=== PATIENT | male | born 1965 | race African-American/Black ===

== ENCOUNTER 2018-07-23 11:10 | Inpatient (IN) | payer MEDICAID, OTHER ==
[~2018-07-23] VITALS: Ht 180.3 cm; Wt 124.3 kg
[2018-07-23] MEDS ORDERED: IPRATROPIUM BROM 0.5 MG/2.5ML INH SOL NEB ONE (11:45)
[2018-07-23] MEDS ORDERED: ALBUTEROL SULF 2.5 MG/0.5ML(0.5%) NEB SOLN NEB ONE (11:45)
[2018-07-23] MEDS ORDERED: ACETAMINOPHEN 325 MG TAB PO ONE (12:00)
[2018-07-23] MEDS ORDERED: AZITHROMYCIN 500MG/ 250ML 250 ML IV ONE (12:15)
[2018-07-23] MEDS ORDERED: cefTRIAXone 1GM/50ML D5W 50 ML IV ONE (12:15)
[2018-07-23 12:28] LABS: Lactic Acid w/Reflex 2.2 mmol/L (0.4-2.0)
[2018-07-23 12:34] LABS: Hematocrit 35.3 % (41.0-53.0); Hemoglobin 12.3 g/dL (13.5-17.5); Mean Corpuscular Hemoglobin 30.7 pg (28.0-32.0); Mean Corpuscular Hgb Conc. 34.9 g/dL (32.0-36.0); Mean Corpuscular Volume 87.9 fL (80.0-100.0); Platelet Count (auto) 149 10^3/uL (140-450); Red Blood Cells 4.02 10^6/uL (4.5-5.90); Red Cell Distribution Width 18.2 % (11.8-14.3)
[2018-07-23] MEDS ORDERED: SODIUM CHLORIDE 0.9% 3,250 ML IV ONE (12:45)
[2018-07-23 13:24] LABS: White Blood Cell 1.5 10^3/uL (4.4-10.8)
[2018-07-23 13:25] LABS: Basophils % (manual) 0 (0.0-2.0); Blast Cells 0; Eosinophils % (manual) 0 (0-7); Metamyelocytes % 0; Myelocytes % 0; Promyelocytes % 0; Reactive Lymphocytes 0
[2018-07-23 13:49] LABS: Band Neutrophils % (manual) 2; Lymphocytes % (manual) 58 (10.0-50.0); Monocytes % (manual) 12 (0-12)
[2018-07-23 14:06] LABS: Alkaline Phosphatase 89 U/L (45-117); Anion Gap 13 (5-15); BUN/Creatinine Ratio 12.1; Blood Urea Nitrogen 36 mg/dL (7-18); Carbon Dioxide 23 mmol/L (21-32); Chloride 95 mmol/L (98-107); GFR African American 28 mL/min; GFR Non-African American 23 mL/min; Glucose 99 mg/dL (74-106); Potassium 3.3 mmol/L (3.5-5.1); Sodium 131 mmol/L (136-145)
[2018-07-23 14:07] LABS: Alanine Aminotransferase 158 U/L (16-61); Albumin 2.6 g/dL (3.4-5.0); Aspartate Aminotransferase 326 U/L (15-37); Bilirubin, Total 2.1 mg/dL (0.2-1.0); Calcium 8.2 mg/dL (8.5-10.1); Magnesium 2.5 mg/dL (1.6-2.6); Total Protein 8.5 g/dL (6.4-8.2)
[2018-07-23] MEDS ORDERED: POTASSIUM EFFERVESENT TAB 25 MEQ PO ONE ×2 (14:30→14:45)
[2018-07-23] MEDS ORDERED: ENOXAPARIN SOD 120 MG/0.8 ML SYRINGE SC ONE (14:30)
[2018-07-23] MEDS ORDERED: ALBUTEROL SULF 2.5 MG/0.5ML(0.5%) NEB SOLN NEB PRN (14:45)
[2018-07-23] MEDS ORDERED: VANCOMYCIN 1GM/250ML 250 ML IV ONE (14:45)
[2018-07-23] MEDS ORDERED: PIPERACILLIN-TAZOB 3.375GM 100 ML IV ONE (14:45)
[2018-07-23] MEDS ORDERED: VANCOMYCIN PER PHARMACY 0 MG IV SCH (14:45)
[2018-07-23] MEDS ORDERED: MORPHINE SULFATE 4 MG/ML SYR/VIAL IV PRN ×2 (14:45)
[2018-07-23] MEDS ORDERED: NITROGLYCERIN 0.4 MG SL TAB SL PRN (14:45)
[2018-07-23] MEDS ORDERED: MORPHINE SULF INJ 2 MG/ML SYRINGE 1ML IV PRN (14:45)
[2018-07-23] MEDS ORDERED: LACTULOSE 20Gm/30ML SOLN PO PRN (14:45)
[2018-07-23] MEDS: SODIUM CHLORIDE 0.9% 1,000 ML IV SCH ×2 (15:00→20:00)
[2018-07-23] MEDS ORDERED: CLINDAMYCIN 600MG IV 50 ML IV ONE (15:15)
[2018-07-23 15:25] VITALS: BP 101/59
[2018-07-23 15:40] LABS: Urine WBC None Seen /hpf (0 - 3)
[2018-07-23 16:06] LABS: Alcohol, Urine < 3.0 mg/dL (0-5); Amphetamine Screen, Urine NEGATIVE (NEGATIVE); Barbiturate Scree,Urine NEGATIVE (NEGATIVE); Benzodiazephine Screen, Urine NEGATIVE (NEGATIVE); Cannabinoid Screen, Urine NEGATIVE (NEGATIVE); Cocaine Screen, Urine NEGATIVE (NEGATIVE); Opiate Scree,Urine NEGATIVE (NEGATIVE); Phencyclidine Screen, Urine NEGATIVE (NEGATIVE)
[2018-07-23 16:10] VITALS: BP 167/99
--- NOTE | 2018-07-23 16:15 | NUR ---
Patient in room 266 from ER. Patient on the monitor. IV left AC 18G saline locked, patent, clean, dry, and intact. Patient on 2L NC. Last to gravity. Patient A&Ox4. Bed locked and in the lowest position, side rails up x2, call light with in reach. Patient on Reverse isolation. Patient instructed on POC. Will continue to monitor.
[2018-07-23 16:27] LABS: Protein, Urine 207.8 mg/dL (0.0-11.9)
[2018-07-23] MEDS ORDERED: LEVOFLOXACIN 500MG 100 ML IV ONE (16:30)
[2018-07-23 16:48] LABS: Urine Bacteria NONE SEEN /hpf (None Seen); Urine Blood 2+ /uL (Negative)
--- NOTE | 2018-07-23 17:00 | NUR ---
Patient temp 101.3. Hospitalist paged.
--- NOTE | 2018-07-23 17:15 | NUR ---
Dr. Bunch orders for temp, cooling measures only. No medications due to abnormal kidney and liver lab values.
--- NOTE | 2018-07-23 17:30 | NUR ---
Ice packs and cooling blanket on patient. Patient tolerating. Will continue to monitor.
[2018-07-23] MEDS ORDERED: PIPERACILLIN-TAZOB 3.375GM 100 ML IV SCH (18:00)
--- NOTE | 2018-07-23 18:30 | NUR ---
End of shift note: Patient resting at this time. Patient still on cooling measures. IV left AC 18G saline locked, patent, clean, dry, and intact. Patient on 2L NC. Last to gravity. Patient A&Ox4. Bed locked and in the lowest position, side rails up x2, call light with in reach. Patient on Reverse isolation. Patient instructed on POC. Will continue to monitor. Report to be given to retail shift leader RN.
[2018-07-23] MEDS: ALBUTEROL SULF 2.5 MG/0.5ML(0.5%) NEB SOLN NEB SCH (18:36)
--- NOTE | 2018-07-23 20:16 | NUR ---
Opening Shift Note Assumed care of patient, awake and alert. No S/S of distress/SOB or pain, although respirations are 29. Pt has cough, paged MD for orders for cough medicine. Instructed on POC and to call for assist PRN, will continue to monitor for changes Q1hr and PRN.
--- NOTE | 2018-07-23 20:30 | NUR ---
Dr. Pearl at bedside.
[2018-07-23] MEDS: PROMETHAZINE-DM 5 ML ORAL SYRUP GT PRN (20:58)
[2018-07-23] MEDS ORDERED: guaiFENesin-DM 100/10mg/5ml SYR PO PRN (21:00)
[2018-07-23] MEDS: CLINDAMYCIN 600MG IV 50 ML IV SCH (22:23)
[2018-07-24] MEDS: ALBUTEROL SULF 2.5 MG/0.5ML(0.5%) NEB SOLN NEB SCH ×4 (00:47→18:12)
[2018-07-24] MEDS: PROMETHAZINE-DM 5 ML ORAL SYRUP GT PRN ×2 (02:00→15:11)
[2018-07-24] MEDS: SODIUM CHLORIDE 0.9% 1,000 ML IV SCH (03:54)
--- NOTE | 2018-07-24 05:30 | NUR ---
Pt up to bedside commode. Diarrhea. Mucus that is being spit up has blood in it. Pt has been coughing, cough medicine given as prescribed. Temp down to 102.0 rectally. Cooling measures still in place. Will continue to monitor.
[2018-07-24 06:12] LABS: Alanine Aminotransferase 164 U/L (16-61); Alkaline Phosphatase 82 U/L (45-117); Aspartate Aminotransferase 369 U/L (15-37); Bilirubin, Total 1.8 mg/dL (0.2-1.0); Blood Urea Nitrogen 29 mg/dL (7-18); Calcium 8.5 mg/dL (8.5-10.1); Carbon Dioxide 23 mmol/L (21-32); GFR African American 40 mL/min; GFR Non-African American 33 mL/min; Glucose 84 mg/dL (74-106); HDL Cholesterol 11 mg/dL (40-59); LDL Cholesterol 33 mg/dL (< 100); Total Protein 8.5 g/dL (6.4-8.2); Triglycerides 205 mg/dL (< 150)
[2018-07-24 06:15] LABS: Anion Gap 11 (5-15); Chloride 103 mmol/L (98-107); Cholesterol 77 mg/dL (< 200); Potassium 3.6 mmol/L (3.5-5.1); Sodium 137 mmol/L (136-145)
[2018-07-24] MEDS: CLINDAMYCIN 600MG IV 50 ML IV SCH ×3 (06:59→23:11)
[2018-07-24 08:00] VITALS: BP 170/99
--- NOTE | 2018-07-24 08:00 | NUR ---
Opening Shift Note Assumed care of patient, awake and alert, shivering, on cooling blanket, BT 101.7 (rectal) and 102.7 (oral). No S/S of distress/SOB or chest pain. Instructed on POC and to call for assist PRN, will continue to monitor for changes Q1hr and PRN.
--- NOTE | 2018-07-24 08:30 | NUR ---
Breakfast tray provided, patient stated that he doesn't want to eat, will wait.
[2018-07-24] MEDS ORDERED: SODIUM CHLORIDE 0.9% 1,000 ML IV SCH (09:00)
--- NOTE | 2018-07-24 09:00 | NUR ---
Lele SLITTER OPERATOR seen and examined patient at this time, plan of care discussed with patient, patient verbalized understanding. Received new orders, patient made aware.
[2018-07-24] MEDS ORDERED: MORPHINE SULF INJ 2 MG/ML SYRINGE 1ML IV PRN (09:30)
--- NOTE | 2018-07-24 09:45 | NUR ---
Still shivering, BP 160/89 mmHg, no N/V noted after morphine given, will send patient for CT, will continue of care when patient come back.
--- NOTE | 2018-07-24 09:51 | NUR ---
Patient went to Radiology department for CT abdomen and VQ scan, transferred with hospital bed, portable O2 and monitor.
[2018-07-24] MEDS ORDERED: ENOXAPARIN SOD 40 MG/0.4 ML SYRINGE SC SCH ×2 (10:00)
[2018-07-24] MEDS ORDERED: AZITHROMYCIN 500MG/ 250ML 250 ML IV SCH (10:00)
--- NOTE | 2018-07-24 10:10 | NUR ---
Patient came back from the radiology, VQ scan will be done on Thursday.
--- NOTE | 2018-07-24 10:15 | NUR ---
Patient having breakfast on the bed, (80%) of breakfast. No N/V noted.
--- NOTE | 2018-07-24 10:30 | NUR ---
Spirometer provided to patient, encourage to do breathing exercise every 1 hour while awake, patient made aware, patient returned demonstration, got 500 ml per each time, coughing sometimes after breathing exercise with spirometer. Will continue to monitor and care.
[2018-07-24] MEDS: LEVOFLOXACIN 250MG 50 ML IV SCH (10:40)
[2018-07-24] MEDS: ASPirin 81 mg TAB PO SCH (10:41)
[2018-07-24] MEDS: METOPROLOL TARTRATE 25 MG TAB PO SCH ×2 (10:41→23:12)
[2018-07-24] MEDS: MEPERIDINE HCL (25 MG/ML) 1ML VIAL IV PRN ×2 (10:42→15:12)
--- NOTE | 2018-07-24 11:09 | NUR ---
Dr. Dwyer seen and examined patient at this time, plan of care discussed with patient, MD's card given, will D/C iv fluid as order, received new orders, patient made aware.
--- NOTE | 2018-07-24 11:11 | NUR ---
Echocardiogram obtained at the bedside, patient already had Abdominal ultrasound yesterday so will cancel KUB for today, MD made aware.
[2018-07-24] MEDS ORDERED: POTASSIUM CHL 20 Meq TABLET PO ONE (11:15)
[2018-07-24 12:00] VITALS: BP 141/90
[2018-07-24] MEDS: amLODIPine BESYLATE 5 MG TAB PO SCH (12:05)
--- NOTE | 2018-07-24 12:30 | NUR ---
Dr. Hinojosa at bedside, plan of care discussed with patient and his family, received new orders, patient made aware. HR 110-120 /min, SBP around 140 mmHg, no shivering after medication given adjust cooling blanket and continue to monitor BT via rectal, BT 100.1.
[2018-07-24] MEDS ORDERED: ENOXAPARIN SOD 120 MG/0.8 ML SYRINGE SC ONE (13:00)
--- NOTE | 2018-07-24 13:00 | NUR ---
Patient able to take a nap, lying flat on the bed, will keep Lunch tray for patient when he wake up. HR 113, RR 18, on O2 NC 3 LPM, O2 saturation 94%, will continue to monitor and care.
--- NOTE | 2018-07-24 14:30 | NUR ---
BT 98.8 (rectal), turned off the cooling blanket at this time. Will continue to monitor and care.
--- NOTE | 2018-07-24 14:50 | NUR ---
Nutrition consult/assessment Notes please see attached link for complete assessment Est. Needs ABW [id number] kcal (23-25 kcal/kgBW), 75-93 gms pro (0.8-1.0 gms/kgBW r/t elev RFT). Will continue to monitor pertinent labs and reassess nutrient need prn Addendum: 07/24/18 at [address] Amended: Links added.
--- NOTE | 2018-07-24 15:15 | NUR ---
BT 103.3 (axillary) and 102.7 (rectal), HR 120-125/min, turned on the cooling blanket at this time, Demerol given for shivering, will continue to monitor and care.
[2018-07-24 15:28] LABS: Uric Acid 6.1 mg/dL (3.5-7.2)
[2018-07-24 16:00] VITALS: BP 139/90
--- NOTE | 2018-07-24 16:57 | NUR ---
Patient able to take a nap, at this time, patient is awake, shivering, BT 102.5 (rectal), HR 130 /min, O2 saturation 88%, increased O2 NC to 3 LPM at this time, BP 148/88 mmHg, paged MD to update patient's condition, will wait for a call from MD.
--- NOTE | 2018-07-24 17:07 | NUR ---
Received a call from Lele (ELECTRICAL HARDWARE ENGINEER), made aware about patient's condition and a current vital sign: BP 1488/88 mmHg, HR 130, RR 28, O2 saturation 88%, increased O2 NC 3 LPM O2 saturation around 91-92%, received an order for Tylenol 650 mg oral for one dose only, patient made aware, will continue to monitor and care.
[2018-07-24] MEDS ORDERED: ACETAMINOPHEN 325 MG TAB PO ONE (17:15)
--- NOTE | 2018-07-24 18:07 | NUR ---
Dinner tray provided, patient doesn't to eat right now, will keep the tray at the bedside. RT at bedside, breathing treatment given at this time, will continue to monitor and care.
--- NOTE | 2018-07-24 18:23 | NUR ---
After Tylenol and breathing given, HR 115 /min, BT 101.5 (rectal), RR 28, O2 saturation 96%, patient able to take a nap. Will continue the cooling blanket, monitor, and care.
[2018-07-24 20:00] VITALS: BP 137/91
[2018-07-24 22:00] LABS: Hematocrit 34.7 % (41.0-53.0); Mean Corpuscular Hemoglobin 30.7 pg (28.0-32.0); Mean Corpuscular Hgb Conc. 34.7 g/dL (32.0-36.0); Mean Corpuscular Volume 88.3 fL (80.0-100.0); Platelet Count (auto) 115 10^3/uL (140-450); Red Blood Cells 3.92 10^6/uL (4.5-5.90); Red Cell Distribution Width 18.6 % (11.8-14.3)
[2018-07-24] MEDS ORDERED: CARVEDILOL 3.125 MG TAB PO SCH (22:00)
[2018-07-24 22:17] LABS: White Blood Cell 1.8 10^3/uL (4.4-10.8)
[2018-07-24 22:18] LABS: Band Neutrophils % (manual) 0; Basophils % (manual) 0 (0.0-2.0); Blast Cells 0; Eosinophils % (manual) 0 (0-7); Metamyelocytes % 0; Myelocytes % 0; Promyelocytes % 0
[2018-07-24 23:00] LABS: Lymphocytes % (manual) 63 (10.0-50.0); Monocytes % (manual) 16 (0-12)
[2018-07-24 23:01] LABS: Reactive Lymphocytes 5
[2018-07-24] MEDS: ATORVASTATIN 20 MG TAB PO SCH (23:11)
[2018-07-25] VITALS (7 sets, daily range): BP systolic 106–160; BP diastolic 49–108
[2018-07-25] MEDS: ALBUTEROL SULF 2.5 MG/0.5ML(0.5%) NEB SOLN NEB SCH ×2 (00:16→07:21)
[2018-07-25] MEDS: MEPERIDINE HCL (25 MG/ML) 1ML VIAL IV PRN ×4 (01:36→23:08)
[2018-07-25] MEDS: PROMETHAZINE-DM 5 ML ORAL SYRUP GT PRN ×2 (01:40→06:06)
[2018-07-25] MEDS: TEMAZEPAM 15 MG CAP PO PRN (01:44)
[2018-07-25 05:19] LABS: Hemoglobin 11.1 g/dL (13.5-17.5); Red Cell Distribution Width 18.6 % (11.8-14.3)
[2018-07-25 05:23] LABS: Hematocrit 32.2 % (41.0-53.0); Mean Corpuscular Hemoglobin 30.9 pg (28.0-32.0); Mean Corpuscular Hgb Conc. 34.6 g/dL (32.0-36.0); Mean Corpuscular Volume 89.3 fL (80.0-100.0); Platelet Count (auto) 109 10^3/uL (140-450); Red Blood Cells 3.61 10^6/uL (4.5-5.90)
[2018-07-25 05:36] LABS: Albumin 1.8 g/dL (3.4-5.0); Calcium 8.7 mg/dL (8.5-10.1); Potassium 4.1 mmol/L (3.5-5.1)
[2018-07-25 05:40] LABS: BUN/Creatinine Ratio 15.1; Bilirubin, Total 1.5 mg/dL (0.2-1.0); Total Protein 7.9 g/dL (6.4-8.2)
[2018-07-25 05:43] LABS: Basophils % (manual) 0 (0.0-2.0); Eosinophils % (manual) 0 (0-7); Metamyelocytes % 0; Myelocytes % 0; Promyelocytes % 0
[2018-07-25] MEDS: CLINDAMYCIN 600MG IV 50 ML IV SCH (06:08)
--- NOTE | 2018-07-25 07:00 | NUR ---
At beginning of shift pt had normal temp, 1/2 hour break from cooling blanket, pt up to bathroom, temp back up to 102.3 orally. Cooling blanket turned back on, the rest of shift pt temp from 102.3-101.8 rectally. WBC back to 1.5. Pt shivering but denies pain this am. Report given to AM shift, care endorsed.
[2018-07-25 07:20] LABS: Band Neutrophils % (manual) 1; Blast Cells 6; Lymphocytes % (manual) 67 (10.0-50.0); Monocytes % (manual) 20 (0-12); Reactive Lymphocytes 1
[2018-07-25] MEDS ORDERED: VANCOMYCIN PER PHARMACY 0 MG IV SCH (08:15)
--- NOTE | 2018-07-25 08:15 | NUR ---
Lele WEB PRESSMAN at the bedside, seen and examined patient, plan of care discussed with patient, verbalized understanding. Received new orders, patient made aware about changing the antibiotic and will continue to monitor for BT, bleeding, labs, and vital sign.
[2018-07-25 08:47] LABS: White Blood Cell 1.5 10^3/uL (4.4-10.8)
--- NOTE | 2018-07-25 09:10 | NUR ---
Sent sputum to the Lab at this time.
[2018-07-25] MEDS: ACETAMINOPHEN 500 MG TAB PO PRN (09:11)
[2018-07-25] MEDS: FLUCONAZOLE 200MG/100ML 100 ML IV SCH ×2 (09:12→10:07)
[2018-07-25] MEDS: LEVOFLOXACIN 250MG 50 ML IV SCH (09:13)
[2018-07-25] MEDS: ASPirin 81 mg TAB PO SCH (09:14)
[2018-07-25] MEDS: CARVEDILOL 3.125 MG TAB PO SCH ×2 (09:14→22:52)
[2018-07-25] MEDS: IPRATROPIUM BROM 0.5 MG/2.5ML INH SOL NEB SCH ×4 (09:17→23:11)
--- NOTE | 2018-07-25 09:33 | NUR ---
Respiratory note: PT PLACED ON HFNC PER [facility] ANTHROPOLOGIST PHYSICAL. CURRENT SETTINGS 20LPM AND 50% FIO2. POX 96%. PT IS TOLERATING THE HFNC WELL. PT STATES THAT HE FEELS LESS SOB WEARING IT. RN JED IS AWARE.
[2018-07-25] MEDS ORDERED: ALBUTEROL SULF 2.5 MG/0.5ML(0.5%) NEB SOLN NEB SCH (10:00)
[2018-07-25] MEDS: amLODIPine BESYLATE 5 MG TAB PO SCH (10:08)
--- NOTE | 2018-07-25 10:45 | NUR ---
KUB obtained at the bedside.
[2018-07-25] MEDS: VANCOMYCIN 750 MG in D5W 5% 250 ML IV SCH ×2 (11:22→22:52)
--- NOTE | 2018-07-25 11:27 | NUR ---
His in the bedside, patient lying on the bed, sleeping at this time, no shivering noted, Lele MAP MAKER seen patient, no new order, continue to monitor, continue HFNC O2 50% with 20 LPM, RR 26, O2 saturation 96%, BP 116/49 mmHg, BT 102.1 (rectal).
--- NOTE | 2018-07-25 11:45 | NUR ---
Dr. Hinojosa at the bedside, waiting for VQ scan on Thursday, will continue to monitor.
--- NOTE | 2018-07-25 12:30 | NUR ---
BT getting up to 102.5, HR 110, Lunch tray provide but patient doesn't want to eat now, no N/V noted, will continue to monitor and care. Antibiotic given, no adverse reaction noted.
--- NOTE | 2018-07-25 14:50 | NUR ---
BT 103.9, HR 116, RR 34 /min, BP 135/95 mmHg, O2 saturation 90%, Tepid sponge proved, Allen changed, perineal and [place]'s catheter care provided. Demerol given for shivering, will continue to monitor and care. Addendum: 07/25/18 at 1503 by MALCOLM VANG RN RN lang gonzalez
[2018-07-25] MEDS: LEVALBUTEROL HCL 1.25 MG/3 ML NEB NEB SCH ×3 (14:55→23:11)
--- NOTE | 2018-07-25 15:15 | NUR ---
RT at the bedside, breathing treatment given, HFNC flow 30 lpm, O2 60%, Vital sign at this time: HR 116, RR 32, O2 saturation 97%, BP 130/99 mmHg, cold pack provided, continue cooling blanket, will continue to monitor and care.
--- NOTE | 2018-07-25 15:30 | NUR ---
Lele FINGERPRINTER seen patient and made aware about patient's condition at this time, received an order for Tylenol 500 mg PO once, patient made aware.
[2018-07-25] MEDS ORDERED: ACETAMINOPHEN 500 MG TAB PO ONE (15:45)
[2018-07-25] MEDS ORDERED: methylPREDNISolone SOD SUCC 40 MG/ML VL IV ONE (16:00)
--- NOTE | 2018-07-25 16:00 | NUR ---
Dr. Kumar seen and examined patient at this time, received new orders, patient made aware. RT at the bedside for assessment. Will continue to monitor and care.
--- NOTE | 2018-07-25 16:26 | NUR ---
His daughter at the bedside, patient would like to put her contact number for the next of Kin, her name is Abraham Bernal, . Patient lying on the bed, talking to his families, less shivering, continue cooling blanket, HR 114, RR 32, O2 saturation 95% with HFNC flow 30 LPM, O2 60%, BT 103.5 (rectal). received new orders for Solu Medrol and Zosyn, patient made aware about the plan of care. Will continue to monitor and care.
--- NOTE | 2018-07-25 17:20 | NUR ---
Patient lying on the bed, talking to his families, stated that he feeling better, no SOB, HR 102, RR 24, O2 saturation 98%, BT 101.7 (rectal), continue cooling blanket, cold pack, no shivering noted at this time, continue HFNC.
[2018-07-25] MEDS: PIPERACILLIN-TAZOB 3.375GM 100 ML IV SCH (17:53)
--- NOTE | 2018-07-25 18:01 | NUR ---
Patient did the breathing exercise via spirometer (500-600 ml/each), will continue to monitor, HR 94, RR 22, O2 saturation 99%, on HFNC 60%, flow 30 lpm, BT 100.7 (rectal), BP 127/78 mmHg. Patient lying on the bed, watching the movie.
--- NOTE | 2018-07-25 19:05 | NUR ---
IV insertion IV access obtained, via clean sterile technique by inserting 20 gauge catheter at right AC after 2 attempts. IV secured properly. No trauma to site. Patient tolerated procedure well.
[2018-07-25] MEDS: ACETYLCYSTEINE 10 %(100MG/ML) SOL 4ML NEB SCH ×2 (19:49→23:11)
[2018-07-25] MEDS: methylPREDNISolone SOD SUCC 40 MG/ML VL IV SCH (22:50)
[2018-07-25] MEDS: ATORVASTATIN 20 MG TAB PO SCH (22:51)
[2018-07-26] MEDS: PIPERACILLIN-TAZOB 3.375GM 100 ML IV SCH ×4 (00:50→18:32)
[2018-07-26] MEDS: LEVALBUTEROL HCL 1.25 MG/3 ML NEB NEB SCH ×6 (03:18→23:59)
[2018-07-26] MEDS: IPRATROPIUM BROM 0.5 MG/2.5ML INH SOL NEB SCH ×6 (03:18→23:59)
[2018-07-26 03:19] VITALS: BP 124/83
[2018-07-26] MEDS: ACETYLCYSTEINE 10 %(100MG/ML) SOL 4ML NEB SCH ×6 (03:19→23:59)
[2018-07-26] MEDS: MEPERIDINE HCL (25 MG/ML) 1ML VIAL IV PRN (04:58)
--- NOTE | 2018-07-26 05:00 | NUR ---
Critical WBC 1.1, Hospitalist notified. No new orders at this time. Pt stable. Afebrile this shift. Periodic pain to back and abd muscles from coughing. No S/S of distress at this time. Pt remains in reverse isolation. Will continue to monitor.
[2018-07-26 05:03] LABS: Hematocrit 29.5 % (41.0-53.0); Hemoglobin 10.1 g/dL (13.5-17.5); Mean Corpuscular Hemoglobin 30.8 pg (28.0-32.0); Mean Corpuscular Hgb Conc. 34.4 g/dL (32.0-36.0); Mean Corpuscular Volume 89.3 fL (80.0-100.0); Platelet Count (auto) 94 10^3/uL (140-450); Red Cell Distribution Width 18.9 % (11.8-14.3)
[2018-07-26 05:06] LABS: White Blood Cell 1.1 10^3/uL (4.4-10.8)
[2018-07-26 05:07] LABS: Basophils % (manual) 0 (0.0-2.0); Blast Cells 0; Eosinophils % (manual) 0 (0-7); Metamyelocytes % 0; Myelocytes % 0; Promyelocytes % 0
[2018-07-26 05:18] LABS: Albumin 1.5 g/dL (3.4-5.0); Calcium 8.5 mg/dL (8.5-10.1); Potassium 3.9 mmol/L (3.5-5.1)
[2018-07-26 05:21] LABS: BUN/Creatinine Ratio 21.2; Total Protein 7.4 g/dL (6.4-8.2)
--- NOTE | 2018-07-26 06:27 | NUR ---
Respiratory note: PLACED PT ON 3 L NC, PT TOLERATING CHANGE WELL.POX 97%.WILL INFORM RN.
[2018-07-26 07:06] LABS: Band Neutrophils % (manual) 2
[2018-07-26 07:08] LABS: Lymphocytes % (manual) 72 (10.0-50.0); Monocytes % (manual) 16 (0-12); Reactive Lymphocytes 2
[2018-07-26 08:00] VITALS: BP 131/76
--- NOTE | 2018-07-26 08:00 | NUR ---
Opening Shift Note Assumed care of patient, awake and alert. Patient on 2L NC saturation at 97%. Patient A&Ox4. Patient temperature 98.4. IV left AC 18G TKO and right AC 20G saline locked, both IV's patent, clean, dry, and intact. No S/S of distress/SOB or pain. Bed locked and in the lowest position, side rails up x2, call light with in reach. Instructed on POC and to call for assist PRN, will continue to monitor.
--- NOTE | 2018-07-26 08:30 | NUR ---
Patient sitting up in bed eating breakfast independently. Will continue to monitor.
[2018-07-26] MEDS ORDERED: LEVOFLOXACIN 500MG 100 ML IV SCH (10:00)
[2018-07-26 10:07] LABS: Hepatitis B Surface Antibody Negative
[2018-07-26 10:08] LABS: Hepatitis B Surface Antibody Negative
--- NOTE | 2018-07-26 10:30 | NUR ---
Medication dosages, usages, and side effects explained to patient. Patient verbalized understand. Will continue to monitor.
[2018-07-26 10:40] LABS: Hepatitis A Total Antibody Positive
--- NOTE | 2018-07-26 11:00 | NUR ---
Dr. Ahumada at bedside.
[2018-07-26] MEDS: methylPREDNISolone SOD SUCC 40 MG/ML VL IV SCH (11:13)
[2018-07-26] MEDS: amLODIPine BESYLATE 5 MG TAB PO SCH (11:16)
[2018-07-26] MEDS: ASPirin 81 mg TAB PO SCH (11:17)
[2018-07-26] MEDS: CARVEDILOL 3.125 MG TAB PO SCH (11:17)
[2018-07-26] MEDS: VANCOMYCIN 750 MG in D5W 5% 250 ML IV SCH ×2 (11:18→23:20)
[2018-07-26] MEDS: FILGRASTIM(TBO) 480 MCG/0.8 ML SYRG SC SCH (11:19)
[2018-07-26 11:50] VITALS: BP 126/77
--- NOTE | 2018-07-26 12:15 | NUR ---
Dr. Ragsdale at bedside.
[2018-07-26] MEDS ORDERED: traMADol HCL 50 MG TAB PO PRN (12:30)
--- NOTE | 2018-07-26 12:30 | NUR ---
Patient sitting up in bed eating lunch independently. Will continue to monitor.
[2018-07-26] MEDS: FLUCONAZOLE 200MG/100ML 100 ML IV SCH (12:39)
--- NOTE | 2018-07-26 12:45 | NUR ---
Dr. Andujar at bedside. Addendum: 07/26/18 at 1857 by Rossy Jo RN Dr. Mary Kumar at bedside.
--- NOTE | 2018-07-26 14:30 | NUR ---
Patient resting at this time. Will continue to monitor.
[2018-07-26 14:40] LABS: Hepatitis B Core Total AB Negative
[2018-07-26 14:41] LABS: Hepatitis B Surface Antigen Negative (Negative); Hepatitis C Antibody Negative (Negative)
[2018-07-26 14:43] LABS: Hepatitis B Surface Antigen Negative (Negative)
[2018-07-26 15:31] VITALS: BP 126/77
[2018-07-26 15:53] VITALS: BP 137/80
--- NOTE | 2018-07-26 16:45 | NUR ---
Patient take to CT by charge nurse Jo Ann and photo tech.
--- NOTE | 2018-07-26 18:24 | NUR ---
End of shift note: Patient sitting up in bed eating dinner. Patient on 2L NC saturation at 97%. Patient A&Ox4. Patient temperature 98.6 oral. IV left AC 18G TKO and right AC 20G saline locked, both IV's patent, clean, dry, and intact. No S/S of distress/SOB or pain. Bed locked and in the lowest position, side rails up x2, call light with in reach. Instructed on POC and to call for assist PRN, will continue to monitor. Report to be given to security shift supervisor RN.
--- NOTE | 2018-07-26 19:40 | NUR ---
Opening Shift Note Assumed care of patient, awake and alert laying in bed watching television. No S/S of distress/SOB or pain. Complete physical assessment done: see interventions.Patient educated on importance of using IS at bedside, patient verbalizes understanding. Instructed on POC and to call for assist PRN. Patient requesting to use bedside commode. SB assist to commode. Partial bed linen change done, wet wash cloths provided for self care. Call light given to patient to call once ready to go back into bed.
[2018-07-26 19:41] VITALS: BP 146/85
[2018-07-27] VITALS: BP 139/91
[2018-07-27] MEDS: PIPERACILLIN-TAZOB 3.375GM 100 ML IV SCH ×4 (00:15→17:28)
[2018-07-27] MEDS: IPRATROPIUM BROM 0.5 MG/2.5ML INH SOL NEB SCH ×6 (02:00→22:05)
[2018-07-27] MEDS: ACETYLCYSTEINE 10 %(100MG/ML) SOL 4ML NEB SCH ×6 (02:00→22:05)
--- NOTE | 2018-07-27 02:33 | NUR ---
ROUNDS PATIENT RESTING IN BED WITH EYES CLOSED, ON 2L NC . NO SIGNS OF SOB OR PAIN. POX 98% RR18.
[2018-07-27] MEDS: LEVALBUTEROL HCL 1.25 MG/3 ML NEB NEB SCH ×6 (02:53→22:05)
--- NOTE | 2018-07-27 02:54 | NUR ---
PT REFUSED TO BE WOKEN UP FOR 0200 NEB TX. PT ASLEEP WITH NO RESP DISTRESS NOTED.
[2018-07-27 04:00] VITALS: BP 145/85
--- NOTE | 2018-07-27 04:26 | NUR ---
OFFERED PT AM CARE AND BATH PATIENT DECLINED
--- NOTE | 2018-07-27 06:40 | NUR ---
BLADDER TRAINING STARTED PATIENT REQUESTING LAY OUT
[2018-07-27 06:42] LABS: Hematocrit 30.7 % (41.0-53.0); Hemoglobin 10.2 g/dL (13.5-17.5); Mean Corpuscular Hemoglobin 30.8 pg (28.0-32.0); Mean Corpuscular Hgb Conc. 33.3 g/dL (32.0-36.0); Mean Corpuscular Volume 92.4 fL (80.0-100.0); Platelet Count (auto) 87 10^3/uL (140-450); Red Blood Cells 3.32 10^6/uL (4.5-5.90); Red Cell Distribution Width 19.2 % (11.8-14.3)
[2018-07-27 06:46] LABS: White Blood Cell 1.5 10^3/uL (4.4-10.8)
[2018-07-27 06:47] LABS: Albumin 1.6 g/dL (3.4-5.0); Basophils % (manual) 0 (0.0-2.0); Blast Cells 0; Calcium 8.7 mg/dL (8.5-10.1); Eosinophils % (manual) 0 (0-7); Metamyelocytes % 0; Myelocytes % 0; Potassium 3.9 mmol/L (3.5-5.1); Promyelocytes % 0; Reactive Lymphocytes 0
[2018-07-27 06:50] LABS: BUN/Creatinine Ratio 26.4; Bilirubin, Total 0.8 mg/dL (0.2-1.0); Total Protein 7.7 g/dL (6.4-8.2)
[2018-07-27 08:00] VITALS: BP_SYST 141; BP_SYST 146; BP_DIAS 82; BP_DIAS 89
[2018-07-27 08:24] LABS: Band Neutrophils % (manual) 3; Lymphocytes % (manual) 64 (10.0-50.0); Monocytes % (manual) 17 (0-12)
--- NOTE | 2018-07-27 08:45 | NUR ---
LAY CATHETER REMOVED AT PATIENT REQUEST
[2018-07-27] MEDS: ASPirin 81 mg TAB PO SCH (09:51)
[2018-07-27] MEDS: FILGRASTIM(TBO) 480 MCG/0.8 ML SYRG SC SCH (09:51)
[2018-07-27] MEDS: FLUCONAZOLE 200MG/100ML 100 ML IV SCH (09:51)
[2018-07-27] MEDS: PROMETHAZINE-DM 5 ML ORAL SYRUP GT PRN (10:49)
[2018-07-27] MEDS: VANCOMYCIN 1,250 MG in D5W 5% 250 ML IV SCH ×2 (10:49→22:49)
--- NOTE | 2018-07-27 11:03 | NUR ---
DR. ARREOLA AT BEDSIDE
--- NOTE | 2018-07-27 11:04 | NUR ---
STREP PNA ANTIGEN URINE PER LAB THAT IS A LAB THAT WE DO NOT DO OR SEND OUT FOR
[2018-07-27 11:50] VITALS: BP 149/83
--- NOTE | 2018-07-27 14:04 | NUR ---
Respiratory note: PT REFUSED MED NEB TX. NO SOB NOTED. PT STATES THAT HE WANTS TO TAKE A NAP. HR 110, POX 93%, RR 22 ON 2L NC. B/S EXPIRATORY WHEEZES THROUGHOUT POSTERIORLY. IRMA SAHNI IS AWARE.
--- NOTE | 2018-07-27 14:13 | NUR ---
BONE MARROW BIOPSY PER DR. OWEN BONE MARROW BIOPSY TO BE COMPLETED 07/28 APPROXIMATELY 9 AM
[2018-07-27] MEDS: ACETAMINOPHEN 500 MG TAB PO PRN ×2 (14:42→22:36)
--- NOTE | 2018-07-27 14:48 | NUR ---
TEMP 102.3 TYLENOL GIVEN AND COOLING MEASURES APPLIED
--- NOTE | 2018-07-27 15:43 | NUR ---
DR. BAKER PAGED AWAITING CALLBACK
[2018-07-27 15:50] VITALS: BP 166/73
--- NOTE | 2018-07-27 16:00 | NUR ---
TEMPERATURE 103.1 ICE PACKS APPLIED, FAN CONTINUES TO STAY ON, BLANKETS REMOVED
--- NOTE | 2018-07-27 16:32 | NUR ---
DR. BAKER CALLBACK ORDERS RECEIVED
[2018-07-27] MEDS: SODIUM CHLORIDE 0.9% 1,000 ML IV SCH (16:44)
--- NOTE | 2018-07-27 19:19 | NUR ---
REPORT GIVEN TO ISIDRA SOLIS TO ASSUME CARE
--- NOTE | 2018-07-27 19:45 | NUR ---
SHIFT OPENING NOTE RECEIVED PATIENT AWAKE, ALERT AND ORIENTED X4. NO SOB, DISTRESS OR PAIN NOTED. TEMP 100.0 ORAL. COOLING MEASURES REMAIN IN PLACE. ON 2L N/C POX 94%. PHYSICAL ASSESSMENT COMPLETED, SEE INTERVENTIONS. INSTRUCTED ON POC AND TO CALL FOR ASSIST NEEDED. BED IS IN THE LOWEST POSITION WITH SIDE RAILS UP X2, CALL LIGHT IS WITHIN REACH.
[2018-07-27 19:50] VITALS: BP 137/91
[2018-07-27 21:56] LABS: Folate (Folic Acid) 3.9 ng/mL (5.38-24)
[2018-07-27] MEDS: TEMAZEPAM 15 MG CAP PO PRN (22:14)
[2018-07-28] VITALS (7 sets, daily range): BP systolic 137–179; BP diastolic 83–110
[2018-07-28] MEDS: PIPERACILLIN-TAZOB 3.375GM 100 ML IV SCH ×4 (00:29→18:11)
--- NOTE | 2018-07-28 00:30 | NUR ---
ROUNDS PATIENT IS QUIETLY LAYING IN BED SLEEPING. COOLING MEASURES STILL IN PLACE. ICE PACKS UNDER ARMPITS BILATERALLY, ROOM COLD WITH FAN FACED TOWARD PATIENT. ORAL TEMP CURRENTLY 99.3. WILL CONTINUE TO CLOSELY MONITOR.
[2018-07-28] MEDS: IPRATROPIUM BROM 0.5 MG/2.5ML INH SOL NEB SCH ×7 (02:00→22:00)
[2018-07-28] MEDS: ACETYLCYSTEINE 10 %(100MG/ML) SOL 4ML NEB SCH ×7 (02:00→22:00)
[2018-07-28] MEDS: LEVALBUTEROL HCL 1.25 MG/3 ML NEB NEB SCH ×7 (02:36→23:00)
--- NOTE | 2018-07-28 03:30 | NUR ---
MORNING HYGIENE CARE FULL BED BATH PERFORMED USING CHG WIPES. GOWN CHANGED. PARTIAL LINEN CHANGED. PATIENT REPOSITIONED FOR COMFORT. TOLERATED IT WELL.
[2018-07-28] MEDS: SODIUM CHLORIDE 0.9% 1,000 ML IV SCH ×3 (03:53→21:01)
[2018-07-28] MEDS: cloNIDine HCL 0.1 MG TAB PO PRN ×3 (04:07→21:01)
--- NOTE | 2018-07-28 04:10 | NUR ---
HIGH BP 177/110. PRN CLONIDINE GIVEN PER MD ORDER. WILL REASSESS IN 1 HOUR.
--- NOTE | 2018-07-28 06:30 | NUR ---
TEMP RECHECK ORAL TEMP CURRENTLY 101.2. COOLING MEASURES STARTED AGAIN. ICE PACKS PLACED UNDER PATIENTS ARMPITS, WET COLD WASHCLOTH PLACED ON FOREHEAD. Addendum: 07/28/18 at 0650 by Masha Rojas RN TYLENOL GIVEN
--- NOTE | 2018-07-28 06:30 | NUR ---
Respiratory note: PT RECEIVED SCHEDULE MN TX AND STATED HE DID NOT WANT CPT THERAPY AT THIS TIME.
[2018-07-28] MEDS: ACETAMINOPHEN 500 MG TAB PO PRN ×2 (06:42→14:47)
--- NOTE | 2018-07-28 06:50 | NUR ---
ASSISTED PATIENT TO BSC CALL LIGHT LEFT WITHIN REACH
[2018-07-28 06:53] LABS: Hemoglobin 11.9 g/dL (13.5-17.5); Mean Corpuscular Hemoglobin 30.6 pg (28.0-32.0); Mean Corpuscular Volume 92.8 fL (80.0-100.0); Platelet Count (auto) 95 10^3/uL (140-450); Red Blood Cells 3.88 10^6/uL (4.5-5.90); Red Cell Distribution Width 19.8 % (11.8-14.3); White Blood Cell 3.3 10^3/uL (4.4-10.8)
--- NOTE | 2018-07-28 07:10 | NUR ---
END OF SHIFT REPORT GIVEN AND CARE ENDORSED TO KATELNY SOLIS. PATIENT IS LAYING IN BED AWAKE.
[2018-07-28 07:23] LABS: Basophils % (manual) 0 (0.0-2.0); Blast Cells 0; Eosinophils % (manual) 0 (0-7); Myelocytes % 0; Promyelocytes % 0; Reactive Lymphocytes 0
--- NOTE | 2018-07-28 08:00 | NUR ---
Opening Shift Note Assumed care of patient, awake and alert. Patient on 2L NC saturation at 97%. Patient A&Ox4. Patient temperature 102.0, cooling measures initiated. IV left AC 18G running fluids at 100ml/hr and right AC 20G saline locked, both IV's patent, clean, dry, and intact. No S/S of distress/SOB or pain. Bed locked and in the lowest position, side rails up x2, call light with in reach. Instructed on POC and to call for assist PRN, will continue to monitor.
--- NOTE | 2018-07-28 09:30 | NUR ---
Dr. Parson at bedside.
[2018-07-28 09:31] LABS: Albumin 1.6 g/dL (3.4-5.0); BUN/Creatinine Ratio 18.6; Calcium 8.9 mg/dL (8.5-10.1); Potassium 3.9 mmol/L (3.5-5.1)
[2018-07-28 09:33] LABS: Bilirubin, Total 1.3 mg/dL (0.2-1.0); Total Protein 8.1 g/dL (6.4-8.2)
[2018-07-28 09:37] LABS: INR 1.06 (0.9-1.15); Partial Thromboplastin Time 28.5 sec (23.64-32.05)
[2018-07-28] MEDS: FLUCONAZOLE 200MG/100ML 100 ML IV SCH (09:57)
[2018-07-28] MEDS: ASPirin 81 mg TAB PO SCH (09:57)
[2018-07-28] MEDS: FILGRASTIM(TBO) 480 MCG/0.8 ML SYRG SC SCH (09:58)
--- NOTE | 2018-07-28 10:00 | NUR ---
Medication dosages, usages, and side effects explained to patient. Patient verbalized understanding. Will continue to monitor.
--- NOTE | 2018-07-28 10:10 | NUR ---
Dr. Andujar at bedside. OK to downgrade to Tele.
--- NOTE | 2018-07-28 10:27 | NUR ---
Family at bedside.
--- NOTE | 2018-07-28 10:47 | NUR ---
Respiratory note: PT RECEIVED MN TX BUT REFUSED CPT AT THIS TIME.
--- NOTE | 2018-07-28 11:15 | NUR ---
Dr. Ragsdale at bedside.
[2018-07-28] MEDS: VANCOMYCIN 1,250 MG in D5W 5% 250 ML IV SCH (11:59)
--- NOTE | 2018-07-28 12:30 | NUR ---
Patient sitting up in bed eating lunch independently. Will continue to monitor.
--- NOTE | 2018-07-28 13:30 | NUR ---
Dr. Zita mills for ETA on bone marrow biopsy.
[2018-07-28 13:41] LABS: Band Neutrophils % (manual) 3; Lymphocytes % (manual) 81 (10.0-50.0); Metamyelocytes % 1; Monocytes % (manual) 9 (0-12)
--- NOTE | 2018-07-28 14:06 | NUR ---
Nutrition Follow-up Notes Wt.: 112.5 kg as of yesterday. Pt's in isolation room, on oxygen via nasal cannula, asleep, no immediate family member at bedside when rounded this morning. Pt's no signs of distress, NPO earlier, noted resumed on 2 gms Na diet with adequate PO intake aeb 75% consumed meal on today's lunch. Est. Needs ABW [id number] kcal (23-25 kcal/kgBW), 75-93 gms pro (0.8-1.0 gms/kgBW r/t elev RFT). Will continue to monitor pertinent labs and reassess nutrient need prn Labs: Na 135 L, BUN 33 H, Tot mandy 1.3 H, AST 183 H, ALT 102 H, Alb 1.6 H Skin: Jeremiah scale 21, low risk, skin intact per functional support analyst. GI: Pt had 1 BM yesterday per functional support analyst. PES: Altered nutrition related lab values r/t current/chronic medical condition aeb elev RFT hyperbil, elev LFTs Obesity r/t food intake more than body requirement aeb 143% IBW, BMI 34.6 kg/m2 and increased body adiposity Will continue to monitor PO intake, skin status, pertinent labs and weight trend. F/u in 3 to 5 days. Rec.: 1.) If LFTs, Tot mandy remain elev. consider Low Fat in addition to current therapeutic diet. 2.) If Albumin level continues trending down, consider Prostat 1 pkt BID. 3.) Continue close supervision during meals. 4.) Refer pt to CDE/RD for further nutrition education and weight monitoring upon discharge. 5.) Continue current plan of care.
--- NOTE | 2018-07-28 14:30 | NUR ---
Dr. Zita mills for ETA on bone marrow biopsy.
--- NOTE | 2018-07-28 15:00 | NUR ---
Patient temp of 102.9. Tylenol given.
--- NOTE | 2018-07-28 16:00 | NUR ---
Temp still 103.1 after medication cooling blanket started.
--- NOTE | 2018-07-28 16:20 | NUR ---
Spoke with Dr. Ahumada's office, the bone marrow biopsy is to be done tomorrow 07/29 at 8am.
--- NOTE | 2018-07-28 18:43 | NUR ---
End of shift note: Patient sitting up in bed eating dinner independently. Patient on cooling measures. Current temp 102.3. Patient on 2L NC saturation at 96%. Patient A&Ox4. IV left AC 18G running fluids at 100ml/hr and right AC 20G saline locked, both IV's patent, clean, dry, and intact. No S/S of distress/SOB or pain. Bed locked and in the lowest position, side rails up x2, call light with in reach. Instructed on POC and to call for assist PRN, will continue to monitor. Report to be given to overnight stocker RN.
--- NOTE | 2018-07-28 19:10 | NUR ---
Dr. Ahumada at bedside Explained tomorrows procedure to the patient.
--- NOTE | 2018-07-28 19:45 | NUR ---
SHIFT OPENING NOTE RECEIVED PATIENT AWAKE, ALERT AND ORIENTED X4. NO SOB, DISTRESS OR PAIN NOTED. ON COOLING BLANKET WITH RECTAL TEMP AT 103.1. ADDITIONAL COOLING MEASURES IMPLEMENTED. TYLENOL NOT YET DUE. PATIENT NOTED TO BE SHIVERING. PHYSICAL ASSESSMENT COMPLETED, SEE INTERVENTIONS. INSTRUCTED ON POC AND TO CALL FOR ASSIST NEEDED. BED IS IN THE LOWEST POSITION WITH SIDE RAILS UP X2 CALL LIGHT IS WITHIN REACH.
--- NOTE | 2018-07-28 20:19 | NUR ---
HOSPITALIST PAGED REGARDING RECTAL TEMP OF 103.5 ON COOLING BLANKET, TYLENOL NOT YET DUE. PATIENT SHIVERING, INCREASE BP. AWAITING CALL BACK.
--- NOTE | 2018-07-28 20:40 | NUR ---
HOSPITALIST RETURNED CALL SPOKE WITH TEENA CORONA. NEW ORDERS OBTAINED FOR MOTRIN 600MG PO ONCE. WILL ADMINISTER AND CONTINUE TO CLOSELY MONITOR.
[2018-07-28] MEDS ORDERED: IBUPROFEN 600 MG TAB PO ONE (20:45)
[2018-07-28] MEDS: TEMAZEPAM 15 MG CAP PO PRN (21:01)
--- NOTE | 2018-07-28 23:03 | NUR ---
PT REFUSED MED NEB TX AT THIS TIME. SPO2 95% ON 4L NC, HR 90, RR 23. PT STATES THAT HE WOULD LIKE TO SLEEP. WILL CONTINUE WITH NEXT SCHEDULED TX.
[2018-07-29] VITALS (7 sets, daily range): BP systolic 114–162; BP diastolic 71–103
--- NOTE | 2018-07-29 | NUR ---
TEMP UPDATE CURRENTLY 97.6 RECTALLY. COOLING BLANKET TURNED OFF. VS STABLE. WILL CONTINUE TO MONITOR.
[2018-07-29] MEDS: VANCOMYCIN 1,250 MG in D5W 5% 250 ML IV SCH ×3 (00:02→22:46)
[2018-07-29] MEDS: IPRATROPIUM BROM 0.5 MG/2.5ML INH SOL NEB SCH ×6 (02:00→22:58)
[2018-07-29] MEDS: ACETYLCYSTEINE 10 %(100MG/ML) SOL 4ML NEB SCH ×6 (02:00→22:58)
[2018-07-29] MEDS: PIPERACILLIN-TAZOB 3.375GM 100 ML IV SCH ×3 (02:18→11:45)
[2018-07-29] MEDS: LEVALBUTEROL HCL 1.25 MG/3 ML NEB NEB SCH ×6 (02:28→22:58)
--- NOTE | 2018-07-29 02:29 | NUR ---
PT REFUSED MED NEB TX AT THIS TIME. SPO2 93% ON 4L NC, HR 82, RR 19. PT DENIES ANY RESPIRATORY DISTRESS. WILL CONTINUE WITH NEXT SCHEDULED TX.
--- NOTE | 2018-07-29 03:55 | NUR ---
MORNING HYGIENE CARE FULL BED BATH PERFORMED USING CHG WIPES. GOWN CHANGED. PARTIAL LINEN CHANGED. PATIENT REPOSITIONED FOR COMFORT.
--- NOTE | 2018-07-29 04:10 | NUR ---
HOSPITALIST PAGED REGARDING HR 140S AND PATIENT UNCONTROLLABLY SHIVERING. AWAITING CALL BACK
--- NOTE | 2018-07-29 04:30 | NUR ---
COOLING BLANKET TURNED ON AGAIN. PATIENTS TEMP IS INCREASING.
--- NOTE | 2018-07-29 04:35 | NUR ---
HOSPITALIST RE-PAGED REGARDING PATIENTS CONDITION. TEMP IS ALSO INCREASING CURRENTLY 102.5. AWAITING CALL BACK.
[2018-07-29] MEDS: ACETAMINOPHEN 500 MG TAB PO PRN (05:05)
--- NOTE | 2018-07-29 05:05 | NUR ---
HOSPITALIST RETURNED CALL. NEW ORDERS OBTAINED MOTRIN 800MG ONCE AND DEMEROL 12.5 MG ONCE.
[2018-07-29] MEDS ORDERED: MEPERIDINE HCL (25 MG/ML) 1ML VIAL IV ONE (05:15)
[2018-07-29] MEDS ORDERED: IBUPROFEN 800 MG TAB PO ONE (05:15)
[2018-07-29 06:34] LABS: Potassium 3.9 mmol/L (3.5-5.1)
[2018-07-29 06:41] LABS: Albumin 1.8 g/dL (3.4-5.0); BUN/Creatinine Ratio 19.6; Bilirubin, Total 1.5 mg/dL (0.2-1.0); Calcium 8.8 mg/dL (8.5-10.1); Total Protein 8.4 g/dL (6.4-8.2)
--- NOTE | 2018-07-29 06:45 | NUR ---
END OF SHIFT PATIENT IS LAYING IN BED SLEEPING. NO SOB, DISTRESS OR PAIN NOTED. COOLING MEASURES REMAIN IN PLACE. TEMP IS CURRENTLY 101.5. WILL GIVE REPORT AND ENDORSE CARE TO THE DAY SHIFT RN.
[2018-07-29 06:51] LABS: Hematocrit 34.6 % (41.0-53.0); Hemoglobin 11.6 g/dL (13.5-17.5); Mean Corpuscular Hemoglobin 30.5 pg (28.0-32.0); Mean Corpuscular Hgb Conc. 33.5 g/dL (32.0-36.0); Mean Corpuscular Volume 91.2 fL (80.0-100.0); Platelet Count (auto) 73 10^3/uL (140-450); Red Cell Distribution Width 19.3 % (11.8-14.3); White Blood Cell 3.7 10^3/uL (4.4-10.8)
[2018-07-29 07:02] LABS: Basophils % (manual) 0 (0.0-2.0); Eosinophils % (manual) 0 (0-7); Myelocytes % 0; Promyelocytes % 0; Reactive Lymphocytes 0
--- NOTE | 2018-07-29 07:50 | NUR ---
Opening Shift Note Assumed care of patient, awake and alert. No S/S of distress/SOB or pain. Instructed on POC and to call for assist PRN, will continue to monitor for changes Q1hr and PRN. On cooling blanket, BT 98.5 F (rectal) after received Tylenol around 5 am. Will continue to monitor and care, patient made aware about the plan that we are waiting for Bone ventura today. Will call Patho when MD at the bedside for Bone marrow aspiration.
--- NOTE | 2018-07-29 08:15 | NUR ---
Breakfast tray provided, patient sitting on the bed, his brother visited at this time.
--- NOTE | 2018-07-29 09:15 | NUR ---
Patient had 100% of breakfast, no N/V noted. Patient stated that he felt better at this time, BT 98.2 F (rectal). Will continue cooling blanket and monitor.
[2018-07-29] MEDS ORDERED: LIDOCAINE 2% (LOCAL ANESTH.) PF 5ml SDV ONE (09:22)
--- NOTE | 2018-07-29 10:07 | NUR ---
Dr. Ahumada at the bedside for bone marrow aspiration. Sent the sample to the Lab, clean the puncture and cover with the dressing, no active bleeding at this time, Vital sign stable HR 107, RR 22, O2 saturation 97%, BP 158/98 mmHg, will continue to monitor and care.
[2018-07-29] MEDS: FLUCONAZOLE 200MG/100ML 100 ML IV SCH (10:49)
[2018-07-29] MEDS: ASPirin 81 mg TAB PO SCH (10:50)
[2018-07-29] MEDS: SODIUM CHLORIDE 0.9% 1,000 ML IV SCH ×2 (10:51→19:02)
[2018-07-29] MEDS: FILGRASTIM(TBO) 480 MCG/0.8 ML SYRG SC SCH (10:51)
--- NOTE | 2018-07-29 11:11 | NUR ---
Patient had 1 large BM with bile color, patient went to the bedside commode, tolerated well, at the bone marrow puncture site no bleeding, no complaining of pain. Will continue to monitor and care, HR 122, RR 24, BT 99.9 (rectal), BP 140/93 mmHg, shivering again. Will call MD to make aware.
[2018-07-29] MEDS ORDERED: LIDOCAINE HCL 2 %PF INJ 10ML AMP IJ ONE (11:45)
--- NOTE | 2018-07-29 11:45 | NUR ---
Dr. Jauregui at the bedside, seen and examined patient at this time, plan of care discussed with patient , patient made aware about the plan, received new orders at this time, patient made aware.
[2018-07-29] MEDS ORDERED: LEVOFLOXACIN 750MG 150 ML IV ONE (12:00)
[2018-07-29] MEDS ORDERED: MEPERIDINE HCL (25 MG/ML) 1ML VIAL IV PRN (12:00)
[2018-07-29] MEDS: ACETAMINOPHEN 325 MG TAB PO PRN ×2 (12:29→19:02)
--- NOTE | 2018-07-29 12:30 | NUR ---
Patient had 100 % of Lunch, no N/V noted, will continue to monitor BT (at this time 100.6 Rectal), vital sign stable.
[2018-07-29] MEDS: MEPERIDINE HCL (25 MG/ML) 1ML VIAL IV PRN ×3 (13:21→21:59)
[2018-07-29 13:37] LABS: Band Neutrophils % (manual) 4; Lymphocytes % (manual) 64 (10.0-50.0); Monocytes % (manual) 19 (0-12)
[2018-07-29 13:38] LABS: Blast Cells 4; Metamyelocytes % 1
--- NOTE | 2018-07-29 14:44 | NUR ---
Patient sitting on the bed, watching TV, stated that he doing okay, BT 98.8 (rectal), still on cooling blanket, HR 105, RR 22, O2 saturation 94%. Will continue to monitor and care. Addendum: 07/29/18 at 1445 by MALCOLM VANG RN RN No shivering noted.
--- NOTE | 2018-07-29 15:50 | NUR ---
Patient sitting on the bed, watching TV, start shivering again at this time, BT 98.6, turned off the cooling blanket at this time, BP 156/103 mmHg, HR 125, O2 saturation 97%. Patient stated that he feeling fine, no really feeling cool but just shivering. Offer warm water, will continue to monitor.
[2018-07-29] MEDS: MORPHINE SULF INJ 2 MG/ML SYRINGE 1ML IV PRN (16:19)
--- NOTE | 2018-07-29 16:22 | NUR ---
BT 100.2 (axillary) and 99.5 (rectal), still shivering, HR 128, RR 26, Morphine given at this time, re start Cooling blanket too. Will continue to monitor and care.
--- NOTE | 2018-07-29 17:38 | NUR ---
Patient able to rest, no shivering at this time, BT 102.6 (rectal), HR 130, RR 26 /min, O2 saturation 92%, will continue to monitor, patient refused Demerol At this time.
--- NOTE | 2018-07-29 19:45 | NUR ---
SHIFT OPENING NOTE RECEIVED PATIENT AWAKE, ALERT AND ORIENTED X4. NO SOB, DISTRESS OR PAIN NOTED. PATIENT IS EATING DINNER INDEPENDENTLY. ON COOLING BLANKET WITH RECTAL TEMP AT 101.2. PATIENT IS STATUS POST BONE MARROW BIOPSY WITH CLEAN BAND-AID IN LEFT LOWER BACK. PHYSICAL ASSESSMENT COMPLETED, SEE INTERVENTIONS. INSTRUCTED ON POC AND TO CALL FOR ASSIST NEEDED. BED IS IN THE LOWEST POSITION WITH SIDE RAILS UP X2 CALL LIGHT IS WITHIN REACH.
[2018-07-29] MEDS: TEMAZEPAM 15 MG CAP PO PRN (21:59)
--- NOTE | 2018-07-29 22:58 | NUR ---
Respiratory note: WHEN ENTERING PTS ROOM PT WAS SHAKING AND SOB. PT HR WAS ELEVATED TO 135 AND O2 SAT WAS AT 86%. ADMINISTERED MED NEB AND INFORMED RN OF PT STATUS. PT DID REFUSE CPT DUE TO HIM NOT FEELING WELL. PT TOLERATED TX WELL AND SPO2 WAS AT 97%. AFTER PLACING PT BACK ON NC PT BEGAN TO DESAT AGAIN. PLACED PT ON 6 L/M OXIMIZER AND O2 SATS BEGAN TO STABLIZE AT 97%. WILL CONTINUE TO MONITOR.
--- NOTE | 2018-07-29 23:22 | NUR ---
HOSPITALIST PAGED HR SUSTAINING IN THE 130S-140S. RECTAL TEMP CONTINUES TO INCREASE DESPITE COOLING BLANKET AND OTHER COOLING MEASURES IN PLACE. UNCONTROLLABLE SHIVERING. AWAITING CALL BACK.
--- NOTE | 2018-07-29 23:40 | NUR ---
HOSPITALIST RETURNED CALL NEW ORDERS OBTAINED FOR TYLENOL 650 MG ONCE, AND 1MG ATIVAN X1. ORDERS ALSO GIVEN FOR MOTRIN 400 MG IN 2 HOURS IF TEMP DOES NOT DECREASE.
[2018-07-29] MEDS ORDERED: LORazepam 2MG/ML-1ML VIAL IV ONE (23:45)
[2018-07-29] MEDS ORDERED: ACETAMINOPHEN 325 MG TAB PO ONE (23:45)
[2018-07-29] MEDS: cloNIDine HCL 0.1 MG TAB PO PRN (23:51)
[2018-07-30] VITALS (44 sets, daily range): BP systolic 100–183; BP diastolic 54–106
[2018-07-30] MEDS ORDERED: IBUPROFEN 400 MG TAB PO ONE (01:40)
--- NOTE | 2018-07-30 02:05 | NUR ---
ROUNDS PATIENT IS LAYING IN BED SLEEPING. NO SOB, DISTRESS OR PAIN NOTED. VS STABILIZING. HR 110, TEMP AT 100.5 RECTAL WILL CONTINUE TO CLOSELY MONITOR.
[2018-07-30] MEDS: IPRATROPIUM BROM 0.5 MG/2.5ML INH SOL NEB SCH ×6 (02:07→23:14)
[2018-07-30] MEDS: ACETYLCYSTEINE 10 %(100MG/ML) SOL 4ML NEB SCH ×6 (02:07→23:15)
[2018-07-30] MEDS: LEVALBUTEROL HCL 1.25 MG/3 ML NEB NEB SCH ×6 (02:07→23:14)
[2018-07-30] MEDS: SODIUM CHLORIDE 0.9% 1,000 ML IV SCH (04:14)
--- NOTE | 2018-07-30 04:20 | NUR ---
COOLING BLANKET TURNED OFF RECTAL TEMP 97.0
[2018-07-30 04:58] LABS: Hemoglobin 10.2 g/dL (13.5-17.5)
[2018-07-30 05:01] LABS: Hematocrit 30.6 % (41.0-53.0); Mean Corpuscular Hgb Conc. 33.3 g/dL (32.0-36.0); Platelet Count (auto) 56 10^3/uL (140-450); White Blood Cell 2.2 10^3/uL (4.4-10.8)
[2018-07-30 05:18] LABS: Albumin 1.5 g/dL (3.4-5.0); Calcium 8.9 mg/dL (8.5-10.1); Potassium 4.3 mmol/L (3.5-5.1)
--- NOTE | 2018-07-30 05:20 | NUR ---
MORNING HYGIENE CARE PATIENT REFUSED BATH, BUT PARTIAL LINEN CHANGE PERFORMED. PATIENT REPOSITIONED. TOLERATED IT WELL.
[2018-07-30 05:23] LABS: BUN/Creatinine Ratio 19.7; Bilirubin, Total 1.1 mg/dL (0.2-1.0); Total Protein 8.1 g/dL (6.4-8.2)
[2018-07-30 05:33] LABS: Basophils % (manual) 0 (0.0-2.0); Eosinophils % (manual) 0 (0-7); Myelocytes % 0; Promyelocytes % 0; Reactive Lymphocytes 0
[2018-07-30] MEDS: MEPERIDINE HCL (25 MG/ML) 1ML VIAL IV PRN ×4 (06:27→22:03)
[2018-07-30] MEDS: cloNIDine HCL 0.1 MG TAB PO PRN ×2 (06:32→19:32)
--- NOTE | 2018-07-30 07:26 | NUR ---
INCREASED OXYMIZER TO 12 LITERS. SPO2 95%.
--- NOTE | 2018-07-30 07:30 | NUR ---
RECEIVED PATIENT LYING IN BED ,A/O TIMES 4, O2 AT 6L BY THE OXYMIZER, STATES HE USES THE URINAL, SALINE LOCK TO THE RAC 20G AND LAC 18G BOTH FLUSHED AND PATENT AND INTACT, COOLING BLANKET TO THE BED, SCD'S TO LAN LEGS, NO COMPLAINTS OF PAIN ,
--- NOTE | 2018-07-30 07:45 | NUR ---
PATIENT BREATHING A LITTLE HARD AND ABG WAS DONE, AND CHEST X-RAY ORDERED
--- NOTE | 2018-07-30 07:50 | NUR ---
END OF SHIFT REPORT GIVEN AND CARE ENDORSED TO ANIYA SOLIS.
--- NOTE | 2018-07-30 08:10 | NUR ---
pt placed on high flow nasal cannula post abg results. pt is on 50 lpm, 90% fio2. spo2 98%. pt alert and oriented. increased wob noted but no accessory muscle use. rn julio aware of high flow placement. pt tolerating well. high flow water adequate and temp set to 36 celcius.
--- NOTE | 2018-07-30 08:15 | NUR ---
PATIENT STILL ON THE COOLING BLANKET AND TEMP IS DOWN TO 102
--- NOTE | 2018-07-30 08:30 | NUR ---
PATIENT SITTING UP IN THE BED EATING HIS BREAKFAST STATES HE FEELS A LITTLE BETTER
[2018-07-30 08:58] LABS: Band Neutrophils % (manual) 8; Lymphocytes % (manual) 47 (10.0-50.0)
[2018-07-30 09:00] LABS: Blast Cells 5; Metamyelocytes % 1; Monocytes % (manual) 31 (0-12)
--- NOTE | 2018-07-30 09:35 | NUR ---
DISCUSSED MEDICATIONS WITH THE PATIENT REGARDING THE DOSAGE, USAGE, AND THE SIDE EFFECTS, VERBALIZED HE UNDERSTOOD AND MEDS GIVEN ORDERED Addendum: 07/30/18 at 1426 by Ban Calloway RN CHANGE TIME TO 1030
--- NOTE | 2018-07-30 09:35 | NUR ---
PATIENT SITTING UP IN THE BED WITH YES CLOSED
[2018-07-30] MEDS: ASPirin 81 mg TAB PO SCH (10:31)
[2018-07-30] MEDS: FLUCONAZOLE 200MG/100ML 100 ML IV SCH (10:31)
[2018-07-30] MEDS: FILGRASTIM(TBO) 480 MCG/0.8 ML SYRG SC SCH (10:32)
[2018-07-30] MEDS ORDERED: VANCOMYCIN PER PHARMACY 0 MG IV SCH (10:45)
[2018-07-30] MEDS: LEVOFLOXACIN 750MG 150 ML IV SCH (10:47)
[2018-07-30] MEDS: VANCOMYCIN 1,250 MG in D5W 5% 250 ML IV SCH (11:00)
--- NOTE | 2018-07-30 11:35 | NUR ---
DR DELGADOHA IN TO SEE THE PATIENT AND STATED HE WANTS HIS TRANSFERRED TO ICU
--- NOTE | 2018-07-30 11:45 | NUR ---
INFORMED THE PATIENT THAT HE IS GOING TO ICU AND ASK WHY, EXPLAIN TO HIM THAT HE JUST WANTED HIM TO BE WATCHED MORE CLOSELY
--- NOTE | 2018-07-30 12:30 | NUR ---
PATIENT STATES HE WANTS TO EAT HIS LUNCH BEFORE HE GOES TO HIS NEW ROOM BUT ONLY AT A SMALL AMOUNT
--- NOTE | 2018-07-30 13:15 | NUR ---
GHAZALA ALY RECEIVED REPORT FOR PATIENT WHO IS GOING TO ROOM 104 IN ICU
--- NOTE | 2018-07-30 13:23 | NUR ---
PATIENT CALLED FAMILY AND MADE THEM AWARE THAT HE IS BEING TRANSFERRED
--- NOTE | 2018-07-30 13:39 | NUR ---
pt transported to icu 4, on 15 liters oxymizer. spo2 maintained >92% during transport. pt connected to monitor. pt placed back on high flow nasal cannula in icu. increased fio2 to 100%. pt is on 50lpm, 100% fio2. spo2 92%. omer ferrer and ayla at bedside and aware of changes. Addendum: 07/30/18 at 1353 by Verena Baxter RT icu 104
--- NOTE | 2018-07-30 13:40 | NUR ---
INCREASED FIO2 ON HIGH FLOW TO 100%. SPO2 94%.
--- NOTE | 2018-07-30 13:42 | NUR ---
Patient received from [facility] to room 104 Icu. Report received from Machine Captain Roseann, Update on plan of care. Patient received on 15liters Oxymizer switched to high flow 50l/min 100%fi02, pox 92%. Pt noted to have whole body shaking as he is shivering. Hr ST 131, bp obtained after 3 attempts 165/97 current temp 101.1 rectally. Md at bedside stating ok to give tylenol, and demoral now. Medication given. See notes/ orders
[2018-07-30] MEDS: ACETAMINOPHEN 325 MG TAB PO PRN ×2 (14:07→22:49)
[2018-07-30] MEDS ORDERED: POTASSIUM CHL 20 Meq TABLET PO ONE (15:00)
[2018-07-30] MEDS ORDERED: FUROSEMIDE 20 MG/2 ML VIAL IV ONE (15:00)
--- NOTE | 2018-07-30 15:00 | NUR ---
Vegas catheter insertion Patient assessed and determined to be in need of vegas catheter. Order obtained from MD. Patient educated on catheter and reason for insertion. All questions answered. Vegas catheter 16 guage Czech inserted with clean sterile technique. Patient tolerated well.
--- NOTE | 2018-07-30 16:29 | NUR ---
UPDATED Dr. Ragsdale updated on patients status. Md notified patient is currently on 40lpm 80% pox 100% rr 20-22, pt breathing comfortably, and currently resting. Hr 113, bp 113/64 with current temp 101.8. No new orders at this time. Will continue to monitor.
--- NOTE | 2018-07-30 18:00 | NUR ---
Cooling Measures applied. Patient currently has temp of 104.2 , cooling measures in place, Elastic Attacher Chainstitch to review medication at this time. Addendum: 07/30/18 at 2021 by Gisela Bates RN Ice packs to bilateral axillary, groin and neck in place. Fan in room to assist with cooling as patient was not tolerating cooling blanket when received from [facility] as it caused extreme shivering and increase of 02 consumption.
--- NOTE | 2018-07-30 18:50 | NUR ---
BOBBIN FIXER S.S PAGED TO NOTIFY OF HIGHER LEVEL OF CARE PER MD.
--- NOTE | 2018-07-30 19:00 | NUR ---
casino worker Dulce Ramires called back. Keyla updated on order. Keyla notified patient does not have insurance at this time. Number provided to fax over patients chart. Tato Willingham fax [phone] #[phone] [facility] [place] [phone] #[phone] [facility] fax [phone] #[phone] Per Iraj Ramires is not charge account identification clerk and no number available to reach him at this time Dr Pinto given transfer paperwork, per , hospitalist to sign paperwork. No d/c order at this time from hospitalist. Dr. Ragsdale not able to be paged at this time. supervisor poultry hatchery notified and stating situation can be followed in a.m. with TEENA Martin when available. Noc nurse notified.
--- NOTE | 2018-07-30 19:10 | NUR ---
Shell Sorter at bedside updated patient on current status with family members at bedside.
[2018-07-30] MEDS ORDERED: ACETAMINOPHEN 325 MG TAB PO ONE (19:15)
--- NOTE | 2018-07-30 19:22 | NUR ---
DANIEL TYLENOL X1 PROVIDED PER PLATING AND POINT ASSEMBLY SUPERVISOR DUE TO TEMP OF 104.5. Addendum: 07/30/18 at 2020 by Gisela Bates RN Per md bass to continue with Tylenol prn, no Motrin to be added at this time.
--- NOTE | 2018-07-30 19:30 | NUR ---
Initial Assessment Patient received laying on bed with no s/s of distress or pain. HOB elevated. Two visitors at bedside. Patient is awake, alert, and oriented and appropriate. HR is in the 130's and continuous rectal temperature is 104.5 Patient just received Tylenol from day shift RN as a one time extra dose and has ice packs to axilla and on cooling blanket. No shivering at this moment. RR even and unlabored with equal rise and fall on high flow oxygen. IV x2 intact and patent with no s/s of infiltration or phlebitis noted. Neurovascular status is intact with palpable distal pulses x4 extremities, skin warm to touch, capillary refill is brisk. No swelling noted. Abd soft and large with normoactive bowel sounds. F/C intact and draining to gravity. Patient educated about how to use the call light and encouraged to call when needing any assistance and patient verbalized understanding. Bed in lowest position, side rails up, bed brakes set, bed alarm set. All alarms audible. In direct view of nurses station. No concerns or complaints from patient at this time. Continue close monitoring.
--- NOTE | 2018-07-30 19:32 | NUR ---
Blood pressure management Patient's systolic BP greater than 150. Clonidine administered per MD order. Patient tolerated well.
--- NOTE | 2018-07-30 20:00 | NUR ---
Turning RN offered to turn patient to prevent bed sores and he is requesting not to turn at this time. Educated patient about importance of turning to prevent any skin break down and pressure ulcers. Patient verbalized understanding but continues to refuse turning. RN will continue to encourage and educate.
--- NOTE | 2018-07-30 21:00 | NUR ---
SCD's applied to BLE per MD order/DVT prophylaxis protocol.
--- NOTE | 2018-07-30 22:03 | NUR ---
Shivering Management Patient shivering intensely. Cooling blanket is off. No drowsiness or respiratory depression noted;demerol administered per MD order via slow IVP. patient tolerated well with no adverse reaction noted.
--- NOTE | 2018-07-30 22:10 | NUR ---
Lab draw Slope Tender at bedside drawing 2200 vanco trough.
--- NOTE | 2018-07-30 22:40 | NUR ---
Jockey Agent call Informed that first medical laboratory technical officer was unable to draw blood. They state they will call another dean of boys to draw patient.
--- NOTE | 2018-07-30 22:49 | NUR ---
Temperature management Temperature creeping back up. Acetaminophen administered per MD order. Patient tolerated well. Note that shivering has subsided and patient reports being comfortable. No neuro changes noted.
--- NOTE | 2018-07-30 23:00 | NUR ---
Hospitalist paged re: status of patient. Waiting for call back.
--- NOTE | 2018-07-30 23:00 | NUR ---
Transfer process update 2043-RN informed supervisor housecleaner that Dr. Ahumada is requesting transfer to higher level of care [facility] but will not put in order (must be put in my hospitalist who is not here) (progress notes state he has discussed the transfer with Dr. Ragsdale). Informed that I do not have an order for transfer but it is requested by Dr. Ahumada. He states he will talk to maintenance technician 2nd shift hospitalist to see if they will agree to review the chart. 2107-knitting supervisor called back and states it will be difficult to transfer the patient due to patient not having any insurance, but on-call high risk case manager will work on it tomorrow. In the meantime, he states primary RN can call [facility], [facility], and [facility] to fax patient chart and get the process initiated. 2109-RN called [facility] transfer center. Transfer center patient service representative gave fax # to RN to fax the chart over. 2113-RN called [facility] transfer center and spoke with Karyn. They gave fax # to RN to fax the chart over and states RN has to also fill out the intake form and fax back. 2114-RN called [facility] transfer lissie and spoke with Samara. They gave fax # to RN to fax the chart over. 2199-Chart and facesheet faxed to [facility] by unit tender 2229-unable to fax information to [facility] because there is no MD or customer service administrator available to sign the intake form (must be signed by Dr. Ragsdale who is not here). 2238-[facility] transfer center called back and asked further questions. They state after they find a physician to accept the patient, [facility] MD and customer service administrator Will need to sign letter of agreement due to patient not having insurance.
--- NOTE | 2018-07-30 23:00 | NUR ---
Hospitalist paged re: tachycardia, HTN. Waiting for call back.
--- NOTE | 2018-07-30 23:03 | NUR ---
Lab call 2nd time RN called solar field service technician 2nd time to make sure they are coming to draw patient. They state they are coming.
--- NOTE | 2018-07-30 23:18 | NUR ---
RT NOTE CPT HELD TO HIGH CR AND HIGH BP. PT HAS A TEMP OF 104.5F. PT DENIES ANY SOB, BUT IS NOT TOLERATING MOVING MUCH. BREATHING TX GIVEN BY MASK OVER HCNC.
--- NOTE | 2018-07-30 23:30 | NUR ---
Hospitalist paged 2nd time re: increasing temperature and overall status of patient. Waiting for call back.
--- NOTE | 2018-07-30 23:35 | NUR ---
Hospitalist called back Informed TEENA Pantoja of overall status of patient including vital signs, increasing temperature despite Tylenol administration. He ordered: -Administer Ibuprofen 800mg PO x1 RN performed TORB and TOUCHER UP verified order to be correct. No additional orders received. `
[2018-07-30] MEDS ORDERED: IBUPROFEN 800 MG TAB PO ONE ×2 (23:43→23:45)
[2018-07-31] VITALS (92 sets, daily range): BP systolic 92–173; BP diastolic 52–101
[2018-07-31] MEDS: VANCOMYCIN 1,250 MG in D5W 5% 250 ML IV SCH ×3 (00:36→22:28)
--- NOTE | 2018-07-31 02:00 | NUR ---
Turning Patient refusing to turn throughout the night stating he is comfortable and doesn't feel like turning. Educated patient about importance of turning to prevent any skin break down and pressure ulcers. Patient verbalized understanding and states "I don't have any bedsores". RN will continue to encourage and educate.
[2018-07-31] MEDS: IPRATROPIUM BROM 0.5 MG/2.5ML INH SOL NEB SCH ×6 (02:39→23:12)
[2018-07-31] MEDS: LEVALBUTEROL HCL 1.25 MG/3 ML NEB NEB SCH ×6 (02:39→23:12)
[2018-07-31] MEDS: ACETYLCYSTEINE 10 %(100MG/ML) SOL 4ML NEB SCH ×6 (02:40→23:13)
--- NOTE | 2018-07-31 04:00 | NUR ---
Ongoing Assessment Patient refusing bed bath at this time states he just wants to rest. Reports feeling better. Fan turned off and blanket provided due to drop in temperature. Continues to request not to turn due to comfort despite skin education given and patient verbalized understanding. All bony prominences and heels are offloaded with pillows. RR even and unlabored with equal rise and fall on high flow. no S/S of distress, denies pain. No shivering at this time. All fall and safety precautions intact. Continue close monitoring.
[2018-07-31 04:21] LABS: Hematocrit 26.1 % (41.0-53.0); Hemoglobin 8.9 g/dL (13.5-17.5); Mean Corpuscular Hemoglobin 30.8 pg (28.0-32.0); Mean Corpuscular Hgb Conc. 34.2 g/dL (32.0-36.0); Mean Corpuscular Volume 89.9 fL (80.0-100.0); Platelet Count (auto) 44 10^3/uL (140-450); Red Cell Distribution Width 19.1 % (11.8-14.3); White Blood Cell 2.1 10^3/uL (4.4-10.8)
[2018-07-31 04:25] LABS: Basophils % (manual) 0 (0.0-2.0); Myelocytes % 0
[2018-07-31 04:26] LABS: Promyelocytes % 0; Reactive Lymphocytes 0
[2018-07-31 04:32] LABS: Albumin 1.5 g/dL (3.4-5.0); Calcium 8.5 mg/dL (8.5-10.1)
[2018-07-31 04:35] LABS: BUN/Creatinine Ratio 16.9; Bilirubin, Total 1.2 mg/dL (0.2-1.0); Total Protein 7.5 g/dL (6.4-8.2)
--- NOTE | 2018-07-31 06:00 | NUR ---
Unable to obtain daily weight Bed scale not working and no alternative scale available.
--- NOTE | 2018-07-31 07:04 | NUR ---
Report given No changes or incidents to report. All fall and safety precautions are intact. No S/S of distress, denies pain. Care endorsed to day shift RN.
[2018-07-31 07:52] LABS: Albumin 1.5 g/dL (3.4-5.0); Calcium 8.7 mg/dL (8.5-10.1); Potassium 4.1 mmol/L (3.5-5.1)
[2018-07-31 07:56] LABS: BUN/Creatinine Ratio 18.5; Bilirubin, Total 1.3 mg/dL (0.2-1.0); Total Protein 7.6 g/dL (6.4-8.2)
[2018-07-31] MEDS ORDERED: IBUPROFEN 800 MG TAB PO PRN (09:00)
--- NOTE | 2018-07-31 09:15 | NUR ---
visits et examines patient - orders received. freelance writer placed call to [employer] to page cattle manager to arrange for stat transfer for patient to higher level of care. medical record faxxed to Tato Willingham - verified with transfer center that information was received.
--- NOTE | 2018-07-31 09:50 | NUR ---
Spoke to Marilyn RICO who also spoke to - states will call for additional information. Assembly Line Inspector informed patient of transfer process underway - verbalizes understanding.
[2018-07-31] MEDS: FLUCONAZOLE 200MG/100ML 100 ML IV SCH (10:24)
[2018-07-31] MEDS: ASPirin 81 mg TAB PO SCH (10:24)
--- NOTE | 2018-07-31 11:00 | NUR ---
Metal Burnisher gave updated condition report to [place] [facility]
--- NOTE | 2018-07-31 11:21 | NUR ---
Called Amparo at [facility] [place] intake [place] - left message, awaiting reply. Dr Sanders visits - updated on transfer progress with Richy Bustamante.
--- NOTE | 2018-07-31 11:24 | NUR ---
Received required paperwork from [facility] via fax.
--- NOTE | 2018-07-31 11:45 | NUR ---
Spoke to Marilyn - dates [facility] has declined patient for financial considerations.
--- NOTE | 2018-07-31 12:20 | NUR ---
Faxxed required paperwork back to Amparo.
--- NOTE | 2018-07-31 12:44 | NUR ---
Received call from Bea at [facility] - states that the Oncology Dept. is short staffed currently and cannot take patient.
[2018-07-31] MEDS: IBUPROFEN 800 MG TAB PO PRN (14:30)
--- NOTE | 2018-07-31 14:30 | NUR ---
Temp 102.6 - Motrin given. Patient refuses hypothermia blanket at this time.
[2018-07-31 14:42] LABS: Blast Cells 5; Eosinophils % (manual) 1 (0-7); Lymphocytes % (manual) 46 (10.0-50.0); Metamyelocytes % 1
[2018-07-31 14:43] LABS: Band Neutrophils % (manual) 7; Monocytes % (manual) 28 (0-12)
[2018-07-31] MEDS: LEVOFLOXACIN 750MG 150 ML IV SCH (14:52)
--- NOTE | 2018-07-31 15:30 | NUR ---
Temp 102.7 - ice packs applied to posterior neck et bilat axilla.
--- NOTE | 2018-07-31 15:45 | NUR ---
Requested information for patient faxxed to [facility]
--- NOTE | 2018-07-31 16:06 | NUR ---
Nutrition Follow-up Notes Wt.: 113.6 kg as of 07/29/18. Pt's in isolation room, on oxygen via nasal cannula, asleep, no immediate family member at bedside during rounds this morning. Pt's s/p Bone marrow aspiration and biopsy (07/29/18), no signs of distress, currently on 2 gms Na diet with adequate PO intake aeb 80% consumed meals (x6) in last 2.5 days. Est. Needs ABW [id number] kcal (23-25 kcal/kgBW), 75-93 gms pro (0.8-1.0 gms/kgBW r/t elev RFT). Will continue to monitor pertinent labs and reassess nutrient need prn Labs: Gluc 109 H, Na 135 L, BUN 34 H, Cr 1.84 H, Tot mandy 1.3 H, AST 106 H, ALP 119 H, Alb 1.5 H Skin: Jeremiah scale 19, low risk, skin intact per eyeglass maker. GI: Pt had 1 BM 07/29/18 per eyeglass maker. PES: Altered nutrition related lab values r/t current/chronic medical condition aeb elev RFT hyperbil, elev LFTs Obesity r/t food intake more than body requirement aeb 143% IBW, BMI 34.6 kg/m2 and increased body adiposity Will continue to monitor PO intake, skin status, pertinent labs and weight trend. F/u in 3 to 5 days. Rec.: 1.) If LFTs, Tot mandy remain elev. consider Low Fat in addition to current therapeutic diet. 2.) If Albumin level continues trending down with improved renal labs, consider Prostat 1 pkt BID. 3.) Continue close supervision during meals. 4.) Refer pt to RD for further nutrition education and weight monitoring upon discharge. 5.) Continue current plan of care.
--- NOTE | 2018-07-31 16:12 | NUR ---
TITRATED FIO2 TO 65% AND FLOW TO 35LPM SPO2 92-93%. RN YING MADE AWARE.
--- NOTE | 2018-07-31 16:15 | NUR ---
Informed Marilyn SW info to [facility] has been faxxed. Ice packs continue in addition to fan placed on patient for cooling measures.
--- NOTE | 2018-07-31 17:38 | NUR ---
SS consult for Higher level of care due to AML and needing chemotherapy. Per Loraine, pt is a 53 yo male newly diagnosed with AML and per Dr. Schuler is needing an acute leukemic expert. 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 Iraj , Medi-nai implementation consultant, has been working with pt to obtain possible medi-nai but until he does, pt is a self- pay. Per Loraine, staff had faxed pt's clinical information to : [facility], [facility], and [facility] [place]. Requesting assistance in transfer process for this patient. Spoke with Dr. Hathaway covering hospitalist for further clarification of reason for transfer and medical stability. Per Dr. Hathaway , this is not his order and its up to Dr. Schluer. Contacted [facility] and spoke with Mikki who stated that they have no beds. Contacted [facility] and per Grisel pt would have to pay at a rate of $8500 per day not including chemo therapy and could not accomodate if no financial source for hospitalization. Grisel referred me to the [facility] and I spoke with Jadon, Coordinator 60, who requested an intake packet be faxed over. Contacted Bea at [facility] and they have no beds at this time. Contacted Mel at [facility] who requested a reparation intake form if patient accepted. This places financial responsibility for pt's hospitalization on [facility]. Mel requested an intake assessment on pt. Contacted Loraine and provided her with the above info and requests from Mel and Jadon. Loraine to followup with information requested by facility for possible acceptance. Will followup with [facility] as well and notify if bed availability.
--- NOTE | 2018-07-31 19:15 | NUR ---
Initial Assessment Patient received laying on bed with no s/s of distress and denies. HOB elevated. Patient is awake, alert, and oriented and appropriate. Patient is on cooling measures with fan and ice packs. No shivering at this moment. RR even and unlabored with equal rise and fall on high flow oxygen. Patient has productive/strong cough. IV x2 intact and patent with no s/s of infiltration or phlebitis noted-saline locked. Neurovascular status is intact with palpable distal pulses x4 extremities, skin warm to touch, capillary refill is brisk. No swelling noted. Abd soft and large with normoactive bowel sounds. F/C intact and draining to gravity. Patient educated about how to use the call light and encouraged to call when needing any assistance and patient verbalized understanding. Bed in lowest position, side rails up, bed brakes set, bed alarm set. All alarms audible. In direct view of nurses station. No concerns or complaints from patient at this time. Continue close monitoring.
[2018-07-31] MEDS: ACETAMINOPHEN 325 MG TAB PO PRN (19:52)
--- NOTE | 2018-07-31 19:52 | NUR ---
Temperature management Patient febrile. Acetaminophen administered per MD order. Patient tolerated well. Ice packs and fan remains in place with protective cloth in between skin and ice packs to maintain skin integrity.
[2018-07-31] MEDS: MEPERIDINE HCL (25 MG/ML) 1ML VIAL IV PRN (20:41)
--- NOTE | 2018-07-31 20:41 | NUR ---
Shivering Management Patient shivering. No drowsiness or respiratory depression noted;demerol administered per MD order via slow IVP. patient tolerated well with no adverse reaction noted.
--- NOTE | 2018-07-31 20:45 | NUR ---
Fi02 Patient's sp02 is ranging from 88-90% (patient is asymptomatic with no accessory muscle use, SOB or labored breathing noted). RT called to bedside and assessed patient. He increased Fi02 to 75% and Sp02 is now sustaining 93-94%.
--- NOTE | 2018-07-31 23:00 | NUR ---
IV removal IV DC'd with clean sterile technique, catheter fully intact. Pressure dressing applied to site. Patient tolerated well. NOTE: D/C'd due to IV past the 72 hour protocol.
--- NOTE | 2018-07-31 23:15 | NUR ---
IV insertion IV access obtained, via clean sterile technique by inserting 20 gauge catheter at Right hand. IV secured properly. No trauma to site. Patient tolerated well.
[2018-08-01] VITALS (91 sets, daily range): BP systolic 124–192; BP diastolic 35–104
[2018-08-01] MEDS: IBUPROFEN 800 MG TAB PO PRN ×3 (01:36→17:33)
--- NOTE | 2018-08-01 01:45 | NUR ---
Bowel Movement Patient assisted to bedside commode and had large/soft/brown bowel movement. Patient provided josh-care independently. Patient assisted back into bed without incident.
[2018-08-01] MEDS: ACETAMINOPHEN 325 MG TAB PO PRN (02:55)
[2018-08-01] MEDS: IPRATROPIUM BROM 0.5 MG/2.5ML INH SOL NEB SCH ×6 (03:36→21:46)
[2018-08-01] MEDS: ACETYLCYSTEINE 10 %(100MG/ML) SOL 4ML NEB SCH ×6 (03:36→21:46)
[2018-08-01] MEDS: LEVALBUTEROL HCL 1.25 MG/3 ML NEB NEB SCH ×6 (03:37→21:46)
[2018-08-01 03:59] LABS: Platelet Count (auto) 43 10^3/uL (140-450); White Blood Cell 2.2 10^3/uL (4.4-10.8)
[2018-08-01 04:02] LABS: Hematocrit 24.8 % (41.0-53.0); Hemoglobin 8.6 g/dL (13.5-17.5); Mean Corpuscular Hemoglobin 30.7 pg (28.0-32.0); Mean Corpuscular Hgb Conc. 34.5 g/dL (32.0-36.0); Red Blood Cells 2.79 10^6/uL (4.5-5.90); Red Cell Distribution Width 19.4 % (11.8-14.3)
[2018-08-01 04:07] LABS: Band Neutrophils % (manual) 0; Basophils % (manual) 0 (0.0-2.0); Eosinophils % (manual) 0 (0-7); Metamyelocytes % 0; Myelocytes % 0; Promyelocytes % 0; Reactive Lymphocytes 0
[2018-08-01 04:25] LABS: Albumin 1.4 g/dL (3.4-5.0); BUN/Creatinine Ratio 18.6; Calcium 8.6 mg/dL (8.5-10.1)
[2018-08-01 04:27] LABS: Bilirubin, Total 1.1 mg/dL (0.2-1.0); Total Protein 7.6 g/dL (6.4-8.2)
--- NOTE | 2018-08-01 04:45 | NUR ---
Bed bath/linen change Patient given complete bed bath. All linens and gown changed. Skin moisturized. Patient tolerated well.
[2018-08-01] MEDS: MORPHINE SULF INJ 2 MG/ML SYRINGE 1ML IV PRN (05:11)
[2018-08-01 05:29] LABS: Blast Cells 5; Lymphocytes % (manual) 43 (10.0-50.0); Monocytes % (manual) 39 (0-12)
--- NOTE | 2018-08-01 06:00 | NUR ---
Unable to obtain daily weight Bed scale not working and no alternative scale available.
--- NOTE | 2018-08-01 06:00 | NUR ---
Transfer status update 190-RN called [facility] to inquire about status of transfer. They state there are currently no beds and will not get any further information tonight. The [facility] reference # is [id number]-RN called [facility] transfer center. They declined patient because there are no beds available and did not want us to fax patient's chart. 1909-RN called [facility]. They are declining patient because per their physician, their facility is too far for the patient to make follow up appointments 1919-RN talked to data warehouse specialist, Maria Del Carmen to inform that there is currently no accepting facility. She states ok to keep calling hospitals to fax information. 1929-RN called [facility]. Their transfer center is closed until 799. 1944-RN called [facility] transfer diablo who states OK to fax patient chart. 1999-RN informed glass sanderGt who is attempting to get more numbers of hospital 2009-administrative secretary faxed patient's chart to [facility] 2014-RN called [facility] transfer center. They state they will not accept the patient because the patient is not an existing [facility] patient and they do not have a physician who is requesting the transfer. 2029-RN called [facility] and spoke with Shruthi who states she will have physician review chart but will not have an answer until Thursday. 2044-administrative secretary faxed chart to [facility] 2099-administrative secretary faxed patient chart to [facility] 2114-RN called [facility]. They do not have a transfer center, but the data warehouse specialist states there are no beds available and would not take patient's information. 2129-RN called [facility] in [place]. States OK to fax patient's chart. 2129-RN called [facility] transfer center and spoke with Jasmina. She states she will talk to their infrastructure administrator and call back. 2144-Jasmina from [facility] called back and states they are declining the patient because they do not have heme/onc MD on site. 99-[facility] called back and they state once they review the chart and get financial clearance they will call back. 599-RN called [facility] transfer center. There was no answer after two attempts. 644-RN called [facility] transfer center. Spoke with Kacey, the data warehouse specialist who states OK to fax chart and she will talk to transfer staff when they come in. 0693-Informed day shift patrol community service officer of pending fax to [facility].
--- NOTE | 2018-08-01 06:55 | NUR ---
Family call Patient's daughterAbraham called to get update. She wants to talk to the MD. RN put note in front of chart requesting MD to call her.
--- NOTE | 2018-08-01 07:22 | NUR ---
Report given No changes or incidents to report. No S/S of distress, denies pain or discomfort. IV intact and patent. All vitals stable. Care endorsed to day shift RN.
--- NOTE | 2018-08-01 08:40 | NUR ---
PATIENT'S MEDICAL RECORDS FAXXED TO [facility].
--- NOTE | 2018-08-01 09:02 | NUR ---
DR MAXWELL VISITS ET EXAMINES PATIENT - ORDERS RECEIVED.
--- NOTE | 2018-08-01 10:54 | NUR ---
Respiratory note: FIO2 INCREASED TO 55% DUE TO DECREASING SPO2. RN AWARE OF CHANGE.
[2018-08-01] MEDS: ASPirin 81 mg TAB PO SCH (11:06)
[2018-08-01] MEDS: LEVOFLOXACIN 750MG 150 ML IV SCH (11:06)
--- NOTE | 2018-08-01 11:15 | NUR ---
TEMP 101.5 - YAMILETHEROL GIVEN. Addendum: 08/01/18 at 1829 by Loraine Shafer RN ICE PACKS APPLIED TO POSTERIOR NECK AND BILAT AXILLA - PATIENT REFUSES COOLING BLANKET.
[2018-08-01] MEDS: MEPERIDINE HCL (25 MG/ML) 1ML VIAL IV PRN ×2 (11:35→17:33)
[2018-08-01] MEDS: Ensure Enlive Strawberry 8oz Bottle PO SCH ×2 (12:00→18:24)
--- NOTE | 2018-08-01 12:15 | NUR ---
NO SHIVERING/CHILLS NOTED AFTER DEMEROL GIVEN PER ORDERS. Addendum: 08/01/18 at 1831 by Loraine Shafer RN FAN PLACED ON PATIENT FOR COOLING MEASURES.
--- NOTE | 2018-08-01 12:30 | NUR ---
Medical records faxxed to [facility].
[2018-08-01] MEDS: VANCOMYCIN 1,250 MG in D5W 5% 250 ML IV SCH ×2 (14:30→22:36)
--- NOTE | 2018-08-01 14:57 | NUR ---
Pablito Baron received followup call back from Casey at [facility] and they have no beds. Mel at [facility] stated no bed availabililty as well. Per Loraine night nurse contacted the following hospitals [facility], [facility], [facility], [facility], [facility], [place] and [facility]. All of the above listed facilities declined pt for transfer due to no bed availability. Presently awaiting on a call back from [facility] and [facility].
--- NOTE | 2018-08-01 16:20 | NUR ---
visits et examines patient - no new orders received.
[2018-08-01] MEDS: FLUCONAZOLE 200MG/100ML 100 ML IV SCH (16:44)
--- NOTE | 2018-08-01 17:30 | NUR ---
TEMP 100.8 - PATIENT GIVEN ET DEMEROL AND MOTRIN.
--- NOTE | 2018-08-01 18:27 | NUR ---
NO CHILLS/SHIVERING NOTED AFTER DEMEROL GIVEN PER ORDERS. Addendum: 08/01/18 at 1830 by Loraine Shafer RN PATIENT REFUSES COOLING BLANKET - ICE PACKS APPLIED TO BILAT AXILLA ET POSTERIOR NECK ET FAN ON PATIENT.
[2018-08-01] MEDS: Pro-Stat SF 30ml Vanilla PO SCH (18:45)
[2018-08-01] MEDS: cloNIDine HCL 0.1 MG TAB PO PRN (18:47)
--- NOTE | 2018-08-01 19:30 | NUR ---
Initial Assessment Patient received laying on bed with no s/s of distress and denies. HOB elevated-watching television and eating dinner. Patient is awake, alert, and oriented and appropriate. Continuous rectal temperature monitoring in place. Patient is on cooling measures with fan and ice packs. No shivering at this moment. RR even and unlabored with equal rise and fall on high flow oxygen. No accessory muscle use, labored breathing, or tachypnea noted. Patient has productive/strong cough. IV x2 intact and patent with no s/s of infiltration or phlebitis noted-saline locked. Neurovascular status is intact with palpable distal pulses x4 extremities, skin warm to touch, capillary refill is brisk. No swelling noted. Abd soft and large with normoactive bowel sounds-had BM this morning. F/C intact and draining to gravity. SCD's intact to BLE. Patient educated about how to use the call light and encouraged to call when needing any assistance and patient verbalized understanding. Bed in lowest position, side rails up, bed brakes set, bed alarm set. All alarms audible. In direct view of nurses station. No concerns or complaints from patient at this time. Continue close monitoring.
--- NOTE | 2018-08-01 20:15 | NUR ---
Hospitalist paged Hospitalist paged re: BP 160's despite clonidine administration
--- NOTE | 2018-08-01 20:20 | NUR ---
Hospitalist called back Informed of BP in the 160's despite clonidine administration. TEENA Pantoja ordered: -administer Labetalol 10mg IV x1 if BP remains elevated.
[2018-08-01] MEDS ORDERED: LABETALOL HCL 5 MG/ML ML 20ML VIAL IV ONE (20:30)
[2018-08-01] MEDS: TEMAZEPAM 15 MG CAP PO PRN (22:36)
--- NOTE | 2018-08-01 23:00 | NUR ---
Transfer update RN called [facility] transfer center. They state there are still no beds available RN called [facility] and their transfer center is closed RN called [facility]. They declined patient due to no beds available RN called [facility]. They declined patient state they cannot accommodate his needs. RN called [facility]. They are hoping to initiate transfer on Thursday. RN called [facility]. They declined patient due to no Heme/Onc RN called [facility]-They state to call back on Thursday and would not take patient information RN called [facility]-left [facility] with transfer center. awaiting call back RN called [facility] transfer center. construction secretary faxed over patient chart. RN called [facility]. They gave number of accounting systems manager to get in touch with Dr. Ahumada. RN called Dr. Ahumada and informed of possible bed at [facility] pending his call to Dr. Yosef Salas, their accounting systems manager. he states to hold out until tomorrow to wait for possible [facility] bed. He is aware that multiple hospitals have declined to take him. Will place calling hospitals on hold for now in attempt to get [facility] bed set up by cases management tomorrow.
[2018-08-02] VITALS (97 sets, daily range): BP systolic 124–176; BP diastolic 68–102
[2018-08-02] MEDS: ACETAMINOPHEN 325 MG TAB PO PRN ×3 (01:03→23:12)
--- NOTE | 2018-08-02 01:30 | NUR ---
Ongoing Assessment Tylenol was given for increasing temperature. Fan and ice packs in place with protective cloth in between ice packs and skin to maintain skin integrity.Note that the one time Labetalol dose was not given due to BP did not sustain high. Patient's daughter came to visit but did not want to wake patient. RN updated on status and POC and she verbalized understanding. She was asking about transfer status and RN encouraged her to speak with case management tomorrow for clarification of process. No concerns or complaints voiced from her at this time. Patient currently resting in bed with eyes closed but awakens easily to verbal stimuli. No S/S of distress, denies pain. RR even and unlabored with equal rise and fall. Turning self independently in bed. IV site intact and patent with no s/s of infiltration or phlebitis noted. Neurovascular status intact with palpable distal pulses, skin warm to touch, capillary refill brisk. Fall and safety precautions intact. Call light and side table are within reach. No concerns or complaints from patient. Continue close monitoring.
[2018-08-02] MEDS: LEVALBUTEROL HCL 1.25 MG/3 ML NEB NEB SCH ×6 (01:42→21:25)
[2018-08-02] MEDS: ACETYLCYSTEINE 10 %(100MG/ML) SOL 4ML NEB SCH ×6 (01:42→21:25)
[2018-08-02] MEDS: IPRATROPIUM BROM 0.5 MG/2.5ML INH SOL NEB SCH ×6 (01:42→21:25)
[2018-08-02] MEDS: IBUPROFEN 800 MG TAB PO PRN (02:28)
--- NOTE | 2018-08-02 04:00 | NUR ---
Hygiene Patient refusing bed bath/linen changed at this time-wants to sleep.
[2018-08-02 04:03] LABS: Hemoglobin 8.4 g/dL (13.5-17.5); Platelet Count (auto) 48 10^3/uL (140-450)
[2018-08-02 04:07] LABS: Hematocrit 24.3 % (41.0-53.0); Mean Corpuscular Hemoglobin 30.6 pg (28.0-32.0); Mean Corpuscular Hgb Conc. 34.7 g/dL (32.0-36.0); Mean Corpuscular Volume 88.2 fL (80.0-100.0); Red Blood Cells 2.76 10^6/uL (4.5-5.90); White Blood Cell 2.7 10^3/uL (4.4-10.8)
[2018-08-02 04:18] LABS: Band Neutrophils % (manual) 0; Basophils % (manual) 0 (0.0-2.0); Eosinophils % (manual) 0 (0-7); Metamyelocytes % 0; Myelocytes % 0; Promyelocytes % 0; Reactive Lymphocytes 0
[2018-08-02 04:33] LABS: Potassium 4.3 mmol/L (3.5-5.1)
[2018-08-02 04:40] LABS: Albumin 1.3 g/dL (3.4-5.0); BUN/Creatinine Ratio 15.3; Calcium 9.4 mg/dL (8.5-10.1); Total Protein 7.8 g/dL (6.4-8.2)
--- NOTE | 2018-08-02 06:00 | NUR ---
Unable to obtain daily weight Bed scale not working and no alternative scale available.
[2018-08-02 08:54] LABS: Blast Cells 6; Lymphocytes % (manual) 28 (10.0-50.0); Monocytes % (manual) 58 (0-12)
[2018-08-02] MEDS: Pro-Stat SF 30ml Vanilla PO SCH ×2 (09:00→17:54)
[2018-08-02] MEDS: Ensure Enlive Strawberry 8oz Bottle PO SCH ×3 (09:00→17:54)
[2018-08-02] MEDS: cloNIDine HCL 0.1 MG TAB PO PRN ×3 (09:32→21:23)
[2018-08-02] MEDS: ASPirin 81 mg TAB PO SCH (10:30)
[2018-08-02] MEDS: FLUCONAZOLE 200MG/100ML 100 ML IV SCH (10:30)
[2018-08-02] MEDS: LEVOFLOXACIN 750MG 150 ML IV SCH (11:30)
[2018-08-02] MEDS: MEPERIDINE HCL (25 MG/ML) 1ML VIAL IV PRN ×3 (12:30→23:11)
[2018-08-02] MEDS ORDERED: traMADol HCL 50 MG TAB PO PRN (12:30)
[2018-08-02] MEDS ORDERED: MORPHINE SULF INJ 2 MG/ML SYRINGE 1ML IV PRN ×3 (12:30→12:45)
[2018-08-02] MEDS ORDERED: TEMAZEPAM 15 MG CAP PO PRN (12:30)
[2018-08-02] MEDS: SODIUM CHLORIDE 0.9% 1,000 ML IV SCH (12:45)
[2018-08-02] MEDS: LORazepam 0.5 MG TAB PO PRN ×2 (12:45→21:22)
--- NOTE | 2018-08-02 12:45 | NUR ---
DR. BAKER AT BEDSIDE: ORDERS MD UPDATED ON P'S STATUS, LABS AND POC FOR TODAY. MD TALKING WITH PATIENT AT BEDSIDE. PENDING TRANSFER TO HIGHER LEVEL OF CARE ONCE ACCEPTED BY ACCEPTING HOSPITAL. ORDERS GIVEN AND TO BE CARRIED OUT. CONTINUE CARE.
[2018-08-02] MEDS: VANCOMYCIN 1,250 MG in D5W 5% 250 ML IV SCH ×2 (14:00→23:32)
[2018-08-02] MEDS: PROMETHAZINE-DM 5 ML ORAL SYRUP GT PRN ×2 (14:26→21:22)
--- NOTE | 2018-08-02 15:00 | NUR ---
CALLED DR. BAKER : ORDERS MD INFORMED ON PT'S HTN. SEE VS FLOW SHEET FOR VS AT THIS TIME. ORDERS RECEIVED AND TO BE CARRIED OUT. CONTINUE CARE.
[2018-08-02] MEDS ORDERED: LABETALOL HCL 5 MG/ML ML 20ML VIAL IV ONE (15:05)
--- NOTE | 2018-08-02 15:21 | NUR ---
I called [facility] [phone] and spoke with Mathew, he said that they can not accept this patient at this time, but to contact him when patient's medi-nai becomes effective.
--- NOTE | 2018-08-02 15:22 | NUR ---
I called [facility] and spoke with fun house attendant Lissa, no beds available at this time.
[2018-08-02] MEDS: LABETALOL HCL 5 MG/ML ML 20ML VIAL IV PRN (15:28)
--- NOTE | 2018-08-02 15:35 | NUR ---
I called [facility] and left message for laborer cook house regarding possible transfer of this patient-awaiting return call.
--- NOTE | 2018-08-02 17:30 | NUR ---
DR. CUELLO AT BEDSIDE: UPDATE MD UPDATED ON PT'S CURRENT STATUS, HEMODYNAMICS, LABS AND POC FOR TODAY. WILL CONTINUE WITH CURRENT TX AND POC. WILL CONTINUE TO MONITOR.
--- NOTE | 2018-08-02 19:46 | NUR ---
INITIAL CONTACT ASSUMED CARE OF PATIENT PATIENT APPEARS TO BE RESTING IN BED COMFORTABLY IN SEMI-FOWLERS POSITION PATIENT ON OXIMIZER AT 8 L SATTING AT 98%, AAOX4 VITAL SIGNS SHOW HTN, NO S/S OF DISTRESS NOTED. PATIENT DENIES PAIN AT THIS TIME. NOTED TEMP OVER 103, PATIENT ADVISED TO USE COOLING BLANKET. PATIENT REFUSED COOLING BLANKET AND STATES THAT HE HAS ICE PACKS UNDER BOTH ARM JOSEPH. PATIENT WAS GIVING TEACHING ON THE IMPORTANCE OF USING A COOLING BLANKET WHEN TEMPERATURE IS UNCONTROLLED. PATIENT STILL REFUSED. ICE PACKS WERE REFILLED WITH ICE. PATIENT MADE COMFORTABLE, MOUTH CARE WAS PROVIDED. NOTED 20G IV'S TO RIGHT HAND AND RIGHT A/C, PATENT, INTACT AND ASYMPTOMATIC. NOTED LAY CATHETER IN PLACE AND DRAINING TO GRAVITY. BED IN LOWEST LOCKED POSITION, SIDE RAILS UP X TWO, PATIENT IN FULL VIEW OF NURSES STATION. PLAN OF CARE DISCUSSED WITH PATIENT. PATIENT VERBALIZED UNDERSTANDING. SAFETY MAINTAINED, WILL CONTINUE TO MONITOR
--- NOTE | 2018-08-02 20:30 | NUR ---
TEMPERATURE TEMPERATURE IS 102.6 PATIENT STILL REFUSING TO HAVE COOLING BLANKET PLACED. PATIENT REQUESTING TO HAVE THE FAN REAJUSTED. TEACHING WAS REINFORCED. PATIENT STILL REFUSING THE COOLING BLANKET AT THIS TIME. FAN WAS MOVED CLOSER TO PATIENT
--- NOTE | 2018-08-02 21:00 | NUR ---
RT AT BEDSIDE PATIENT SWITCHED FROM OXYMIZER TO NASAL CANNULA 4L WITH HUMIDIFIER
--- NOTE | 2018-08-02 21:15 | NUR ---
Reassess Temperature TEMP 101.7 ICE BAGS REPLACED AND PUT UNDER AXILIARY, GROIN AREA, UPPER CHEST WILL CONTINUE TO MONITOR
--- NOTE | 2018-08-02 21:25 | NUR ---
PATIENT STATUS PRODUCTIVE COUGH, PATIENT STATES HAVING ABD PAIN WHEN COUGHING PHENERGAN GIVEN
[2018-08-02] MEDS: cloNIDine HCL 0.1 MG TAB PO SCH (21:26)
--- NOTE | 2018-08-02 22:40 | NUR ---
RT PAGED RT PAGED PATIENT O2 SAT MID 80'S PATIENT ON 4L NASAL CANNULA W/HUMIDIFIER AT THIS TIME
--- NOTE | 2018-08-02 22:46 | NUR ---
RT AT BEDSIDE PATIENT PLACED ON OXYMIZER WITH HUMIDIFIER O2 SATS INCREASED TO 96%
--- NOTE | 2018-08-02 23:11 | NUR ---
PATIENT STATUS PATIENT REQUESTING DEMEROL FOR SHAKING DEMEROL GIVEN
[2018-08-03] VITALS (70 sets, daily range): BP systolic 105–192; BP diastolic 55–157
--- NOTE | 2018-08-03 00:30 | NUR ---
HOSPITALIST PAGEYURY HONEYCUTTP PAGED FOR ORDERS REGARDING PATIENT FEVER PATIENT IS REFUSING COOLING BLANKET AT THIS TIME ICE PLACED UNDER AXILIARY, GROIN AREA AND ON CHEST PATIENT GIVEN TYLENOL WILL CONTINUE TO MONITOR
--- NOTE | 2018-08-03 00:42 | NUR ---
CALL RECEIVED FROM YOKASTA CORNELIUS WAS GIVEN PATIENT HIST/SCENARIO ALL QUESTIONS ANSWERED ORDERS GIVEN
--- NOTE | 2018-08-03 01:05 | NUR ---
RT AT BEDSIDE
[2018-08-03] MEDS ORDERED: IBUPROFEN 600 MG TAB PO ONE ×2 (01:06→01:15)
[2018-08-03] MEDS: IPRATROPIUM BROM 0.5 MG/2.5ML INH SOL NEB SCH ×6 (01:08→22:06)
[2018-08-03] MEDS: LEVALBUTEROL HCL 1.25 MG/3 ML NEB NEB SCH ×6 (01:08→22:07)
[2018-08-03] MEDS: ACETYLCYSTEINE 10 %(100MG/ML) SOL 4ML NEB SCH ×6 (01:08→22:08)
[2018-08-03] MEDS: PROMETHAZINE-DM 5 ML ORAL SYRUP GT PRN ×3 (01:14→22:44)
--- NOTE | 2018-08-03 01:20 | NUR ---
Respiratory note: PT REFUSED CHEST PHYSIOTHERAPY AT THIS TIME. PT WANTS TO REST INSTEAD BUT DID RECEIVE BREATHING TX. PT TOLERATED WELL.
--- NOTE | 2018-08-03 01:25 | NUR ---
PATIENT STATUS PRODUCTIVE COUGH, PATIENT STATES HAVING ABD PAIN WHEN COUGHING PHENERGAN GIVEN
--- NOTE | 2018-08-03 04:00 | NUR ---
BM PATIENT HAD A LARGE DARK BROWN BM, SOFT CONSISTENCY
[2018-08-03 04:07] LABS: Hematocrit 24.8 % (41.0-53.0); Hemoglobin 8.5 g/dL (13.5-17.5); White Blood Cell 3.1 10^3/uL (4.4-10.8)
[2018-08-03 04:10] LABS: Mean Corpuscular Hemoglobin 30.5 pg (28.0-32.0); Mean Corpuscular Hgb Conc. 34.4 g/dL (32.0-36.0); Mean Corpuscular Volume 88.7 fL (80.0-100.0); Platelet Count (auto) 48 10^3/uL (140-450); Red Cell Distribution Width 19.3 % (11.8-14.3)
[2018-08-03 04:25] LABS: BUN/Creatinine Ratio 18.1; Calcium 8.9 mg/dL (8.5-10.1); Potassium 4.5 mmol/L (3.5-5.1)
--- NOTE | 2018-08-03 04:30 | NUR ---
Patient bathe/linen change Patient given complete bath. Skin integrity assessed for any changes. Linens changed. Patient repositioned for comfort. Gown change, patient tolerated well
[2018-08-03 06:05] LABS: Band Neutrophils % (manual) 0; Basophils % (manual) 0 (0.0-2.0); Eosinophils % (manual) 0 (0-7); Metamyelocytes % 0; Myelocytes % 0; Promyelocytes % 0; Reactive Lymphocytes 0
[2018-08-03] MEDS: MEPERIDINE HCL (25 MG/ML) 1ML VIAL IV PRN ×3 (06:09→22:45)
[2018-08-03] MEDS: Pro-Stat SF 30ml Vanilla PO SCH ×2 (08:00→18:00)
[2018-08-03 08:04] LABS: Blast Cells 4; Lymphocytes % (manual) 49 (10.0-50.0); Monocytes % (manual) 35 (0-12)
[2018-08-03] MEDS: Ensure Enlive Strawberry 8oz Bottle PO SCH ×3 (08:11→18:24)
[2018-08-03] MEDS: SODIUM CHLORIDE 0.9% 1,000 ML IV SCH (08:12)
--- NOTE | 2018-08-03 09:21 | NUR ---
I called [facility] and spoke with warehouse order picker Lissa, she said they have no beds available and they have several people in their ER waiting for a bed.
--- NOTE | 2018-08-03 09:24 | NUR ---
I called the [facility] [phone] and spoke with [employer] asking if they are able to accept this patient for transfer, she will have her director give me a call back.
--- NOTE | 2018-08-03 09:28 | NUR ---
I called [facility] [phone]-phone rang several times-will try again later.
--- NOTE | 2018-08-03 09:30 | NUR ---
I called [facility] transfer center [phone] and spoke with Kyra, she said they had to decline this patient due to their Oncology staffing.
[2018-08-03] MEDS: ASPirin 81 mg TAB PO SCH (10:00)
[2018-08-03] MEDS: FLUCONAZOLE 200MG/100ML 100 ML IV SCH (10:00)
[2018-08-03] MEDS: cloNIDine HCL 0.1 MG TAB PO SCH ×2 (10:00→22:31)
--- NOTE | 2018-08-03 10:39 | NUR ---
I received a message from Estefani at [facility] [phone] letting me know that they have no ICU beds available at this time.
[2018-08-03] MEDS: LEVOFLOXACIN 750MG 150 ML IV SCH (11:24)
--- NOTE | 2018-08-03 12:11 | NUR ---
I called Iraj Espino [phone] regarding patient's medi-nai status, he said the medi-nai application is pending and the case number is [id number] is NOT the same as an actual medi-nai number. He will fax me a copy of the medi-nai appplication.
[2018-08-03] MEDS: VANCOMYCIN 1,250 MG in D5W 5% 250 ML IV SCH ×2 (12:57→23:38)
[2018-08-03] MEDS: cloNIDine HCL 0.1 MG TAB PO PRN (14:13)
[2018-08-03] MEDS: ACETAMINOPHEN 325 MG TAB PO PRN (14:14)
--- NOTE | 2018-08-03 14:15 | NUR ---
DR. BAKER CALLED BACK: ORDERS GIVEN UPDATED MD ON PT'S CURRENT STATUS, HEMODYNAMICS, PLACEMENT OF HIGH FLOW O2 BACK ON PATIENT DURING THIS TIME. ORDERS GIVEN AND TO BE CARRIED OUT. CURRENT TEMP IS 102.4 AXILLARY. COOLING MEASURES REMAIN. GIVEN IBUPROFEN 800 MG PO X1 NOW. WILL CONTINUE TO MONITOR CLOSELY.
[2018-08-03] MEDS: LABETALOL HCL 5 MG/ML ML 20ML VIAL IV PRN (14:18)
--- NOTE | 2018-08-03 14:25 | NUR ---
PAGED DR. BAKER: ORDERS RECEIVED UPDATED MD ON PT'S CURRENT HEMODYNAMICS, TEMP AND CURRENT STATUS. ORDERS GIVEN TO GIVE X1 CA+ GLUCONATE VIA IVPB NOW. SEE EMAR FOR TIME GIVEN. GIVEN MED TO TRY AND HELP WITH PATIENT SHIVERING. WILL CONTINUE TO MONITOR CLOSELY.
--- NOTE | 2018-08-03 14:25 | NUR ---
Nutrition Follow-up Notes Wt.: 113.6 kg today Pt's in isolation room, on oxygen via nasal cannula, asleep, no signs of distress, currently on 2 gms Na, Low Fat diet with Ensure Enlive 1 carton TID and Prostat 1 pkt BID, has adequate PO intake aeb 90% consumed meals (x6) in last 2.5 days. Est. Needs ABW [id number] kcal (23-25 kcal/kgBW), 75-93 gms pro (0.8-1.0 gms/kgBW r/t elev RFT). Will continue to monitor pertinent labs and reassess nutrient need prn Labs: Na 134 L, BUN 28 H, Cr 1.55 H, AST 87 H, ALP 176 H, Alb 1.3 H Skin: Jeremiah scale 19, low risk, skin intact per technical sales representative. GI: Pt had 1 BM this morning per technical sales representative. PES: Altered nutrition related lab values r/t current/chronic medical condition aeb elev RFT hyperbil, elev LFTs Obesity r/t food intake more than body requirement aeb 143% IBW, BMI 34.6 kg/m2 and increased body adiposity Will continue to monitor PO intake, skin status, pertinent labs and weight trend. F/u in 3 to 5 days. Rec.: 1.) Continue close supervision during meals. 2.) Refer pt to RD for further nutrition education and weight monitoring upon discharge. 3.) Continue current plan of care.
[2018-08-03] MEDS ORDERED: CALCIUM GLUC 4.65meq/50ml D5AE 50 ML IV ONE (14:30)
--- NOTE | 2018-08-03 14:34 | NUR ---
Respiratory note: IRMA REDDY INSISTED THAT PATIENT NOT RECEIVE TX DUE TO TACHYCARDIA.
--- NOTE | 2018-08-03 15:20 | NUR ---
Respiratory note: ARRIVED IN PTS ROOM TO FIND HIS WOB INCREASED SUBSTANTIALLY. RR 35. BILATERAL BS DIMINISHED WITH IE WHEEZES. FAMILY AT BEDSIDE. MED NEB TX GIVEN, TOLERATED WELL. CPT GIVEN, ALSO TOLERATED WELL. RN WILL BE INFORMED OF PT CHANGES.
--- NOTE | 2018-08-03 15:35 | NUR ---
STATUS VS FOLLOWED: HR ST 141, BP 187/102, RR 26. PAGED DR. BAKER. WAITING FOR CALL BACK. COOLING MEASURES IN PLACE. SEE EMAR TO TIMES MEDS/PRN MEDS GIVEN. CONTINUE CARE.
--- NOTE | 2018-08-03 16:12 | NUR ---
I called [facility] [phone] and spoke with Estefani, she said they still have no ICU beds available and won't have any today-I did let her know that patient has medi-nai pending.
--- NOTE | 2018-08-03 16:14 | NUR ---
I called [facility] [phone] and spoke with Gela at the transfer center to let her know that patient has medi-nai pending, she said they can not consider accepting patient for transfer unless he actually HAS medi-nai.
[2018-08-03] MEDS ORDERED: IBUPROFEN 800 MG TAB PO ONE (16:15)
--- NOTE | 2018-08-03 16:23 | NUR ---
I called [facility] [phone] and spoke with Bea, provided her with Dr. Ragsdale's contact information as well as the nurse's station-faxed her the requested face sheet to [phone]. Addendum: 08/03/18 at 1632 by Pham Ellis RN Per Bea they do not currently have any ICU beds.
--- NOTE | 2018-08-03 16:55 | NUR ---
I called [facility] [phone] and spoke with melt house centrifugal operator Keanu, I let her know that this patient has medi-nai pending, she said she has no ICU beds available today, possibly tomorrow-faxed her requested face sheet and H&P to [phone].
--- NOTE | 2018-08-03 16:57 | NUR ---
I called [facility] [phone] and left message asking about bed availability for this patient.
--- NOTE | 2018-08-03 19:10 | NUR ---
RT NOTE: PT RECEIVED ON HIGH FLOW NASAL CANNULA 45L/30%. HIGH FLOW PLUGGED INTO RED OUTLET. AMBUBAG AND MASK @ BEDSIDE AND CONNECTED TO OXYGEN SOURCE. PT STATED HIGH FLOW NASAL CANNULA FELT UNCOMFORTABLE DUE TO BEING BULKY. MED NEB TX GIVEN @ THIS TIME. POST MED NEB TX, PT WAS PLACED ON 4L OXYMIZER (41%), PT ANILA OXYMIZER WELL, SPO2 99-100%. IRMA SAMANO MADE AWARE OF CHANGE. WILL CONT TO MONITOR PT T/O NIGHT.
--- NOTE | 2018-08-03 19:43 | NUR ---
INITIAL CONTACT ASSUMED CARE OF PATIENT PATIENT APPEARS TO BE RESTING IN BED COMFORTABLY IN SEMI-FOWLERS POSITION PATIENT ON OXIMIZER AT 4 L SATTING AT 100%, AAOX4 VITAL SIGNS SHOW TACHYCARDIA AT THIS TIME. NO S/S OF DISTRESS NOTED. PATIENT DENIES PAIN AT THIS TIME. PATIENT MADE COMFORTABLE, MOUTH CARE WAS PROVIDED. NOTED 20G IV'S TO RIGHT HAND AND RIGHT A/C, PATENT, INTACT AND ASYMPTOMATIC. NOTED LAY CATHETER IN PLACE AND DRAINING TO GRAVITY. BED IN LOWEST LOCKED POSITION, SIDE RAILS UP X TWO, PATIENT IN FULL VIEW OF NURSES STATION. SAFETY MAINTAINED, WILL CONTINUE TO MONITOR
[2018-08-04] VITALS (48 sets, daily range): BP systolic 115–187; BP diastolic 72–105
[2018-08-04] MEDS: MEPERIDINE HCL (25 MG/ML) 1ML VIAL IV PRN ×4 (04:50→19:20)
[2018-08-04] MEDS: LORazepam 0.5 MG TAB PO PRN (04:50)
[2018-08-04] MEDS: ACETAMINOPHEN 325 MG TAB PO PRN (05:25)
[2018-08-04 05:39] LABS: BUN/Creatinine Ratio 22.1; Calcium 9.2 mg/dL (8.5-10.1); Potassium 4.8 mmol/L (3.5-5.1)
[2018-08-04] MEDS: IPRATROPIUM BROM 0.5 MG/2.5ML INH SOL NEB SCH ×6 (06:00→22:50)
[2018-08-04] MEDS: ACETYLCYSTEINE 10 %(100MG/ML) SOL 4ML NEB SCH ×6 (06:00→22:50)
[2018-08-04] MEDS: LEVALBUTEROL HCL 1.25 MG/3 ML NEB NEB SCH ×5 (06:15→22:50)
--- NOTE | 2018-08-04 06:15 | NUR ---
Respiratory note: PT REFUSED CPT AT THIS TIME. PT HAS ICE PACKS FOR COOLING MEASURES AND DOES NOT WANT CPT.
[2018-08-04 06:35] LABS: Hematocrit 25.8 % (41.0-53.0); Hemoglobin 8.6 g/dL (13.5-17.5); Mean Corpuscular Hemoglobin 30.5 pg (28.0-32.0); Mean Corpuscular Hgb Conc. 33.4 g/dL (32.0-36.0); Mean Corpuscular Volume 91.5 fL (80.0-100.0); Platelet Count (auto) 60 10^3/uL (140-450); Red Blood Cells 2.82 10^6/uL (4.5-5.90); Red Cell Distribution Width 19.6 % (11.8-14.3); White Blood Cell 2.1 10^3/uL (4.4-10.8)
[2018-08-04 06:37] LABS: Basophils % (manual) 0 (0.0-2.0); Blast Cells 0; Eosinophils % (manual) 0 (0-7); Metamyelocytes % 0; Myelocytes % 0; Promyelocytes % 0; Reactive Lymphocytes 0
[2018-08-04] MEDS: PROMETHAZINE-DM 5 ML ORAL SYRUP GT PRN (06:54)
[2018-08-04] MEDS: LABETALOL HCL 5 MG/ML ML 20ML VIAL IV PRN ×2 (06:56→14:13)
--- NOTE | 2018-08-04 07:30 | NUR ---
ASSESS- PT. LYING IN BED AWAKE, ALERT AND ORIENTED TIMES FOUR. DENIES ANY PAIN OR DISCOMFORT. OXYMIZER 5L. NO SOB. O2 SATS LOW 90'S. LUNGS CLEAR LAN. INSPIRATORY AND EXPIRATORY, DIMINISHED THROUGHOUT. ABD. SOFT, FLAT, NON-TENDER. BOWEL SOUNDS ALL FOUR QUADRANTS. NO N/V. F/C TO GRAVITY WITH CLEAR YELLOW URINE. RADIAL PULSES STRONG, PALPABLE LAN. PEDAL PULSES STRONG, PALPABLE LAN. NO EDEMA. SKIN INTACT. PT. MOVES UPPER AND LOWER EXTREMITIES WITHOUT DIFFICULTY. ABLE TO TURN SELF IN BED. ON ISOLATION DROPLET PRECAUTIONS FOR MRSA NARES.
[2018-08-04] MEDS: SODIUM CHLORIDE 0.9% 1,000 ML IV SCH ×2 (07:45→14:26)
[2018-08-04] MEDS: Ensure Enlive Strawberry 8oz Bottle PO SCH ×3 (07:55→17:46)
[2018-08-04] MEDS: Pro-Stat SF 30ml Vanilla PO SCH ×2 (07:55→17:46)
[2018-08-04 08:04] LABS: Band Neutrophils % (manual) 1; Lymphocytes % (manual) 58 (10.0-50.0); Monocytes % (manual) 24 (0-12)
--- NOTE | 2018-08-04 08:20 | NUR ---
O2 SATS DECREASED TO 88% WHEN STARTING TO EAT BREAKFAST. CHANGED PULSE OX, GOOD PLETH. INCREASED FIO2 ON OXYMIZER FROM 5L TO 8L. NO SOB. NO SIGNS OF RESP. DISTRESS. MONITORING O2 SATS.
--- NOTE | 2018-08-04 08:45 | NUR ---
O2 SATS LOW 90'S NOW. NO SIGNS OF RESP. DISTRESS.
[2018-08-04] MEDS: LEVOFLOXACIN 750MG 150 ML IV SCH (09:25)
[2018-08-04] MEDS: FLUCONAZOLE 200MG/100ML 100 ML IV SCH (09:25)
[2018-08-04] MEDS: cloNIDine HCL 0.1 MG TAB PO SCH ×2 (09:26→21:58)
--- NOTE | 2018-08-04 09:35 | NUR ---
DR. FISH Provider/Hospitalist at bedside. GAVE UPDATE ON PT.
[2018-08-04] MEDS: ASPirin 81 mg TAB PO SCH (10:00)
--- NOTE | 2018-08-04 10:00 | NUR ---
VISITOR AT THE BS.
--- NOTE | 2018-08-04 10:15 | NUR ---
Respiratory note: PT IS REFUSING CPT WITH TX. PT STATES HE WANTS TX ONLY
--- NOTE | 2018-08-04 10:39 | NUR ---
Transfer: faxing to [facility], [facility], [facility] and [facility], re faxing to [facility] and [facility].
[2018-08-04] MEDS: VANCOMYCIN 1,250 MG in D5W 5% 250 ML IV SCH ×2 (11:13→23:06)
--- NOTE | 2018-08-04 11:53 | NUR ---
PT. STARTED TO SHIVER ALL OVER BODY. HR INCREASED ST TO 130'S LOW 140'S. O2 SATS DECREASED TO 82% ON OXYMIZER 5L. INCREASED FIO2 TO 10 LITERS ON OXYMIZER. MED. PT. WITH DEMEROL 25 MG. IVP FOR SHIVERING. TEMP 99.1 ORALLY.
--- NOTE | 2018-08-04 12:40 | NUR ---
PT. NO LONGER SHIVERING. HR REMAINS ST 130'S. O2 SATS 94% ON OXYMIZER 10 LITERS. NO SIGNS OF DISTRESS.
--- NOTE | 2018-08-04 14:01 | NUR ---
Respiratory note: PT IS STILL REFUSING CPT.
--- NOTE | 2018-08-04 14:05 | NUR ---
DR. BAKER Provider/Hospitalist at bedside. GAVE UPDATE ON PT. NEW ORDERS RECEIVED.
--- NOTE | 2018-08-04 14:13 | NUR ---
SBP UPPER 150'S, HR 130'S. MED. PT. WITH LABETALOL 10 MG. IVP FOR PRN SBP > 150. MONITORING VSS.
--- NOTE | 2018-08-04 15:00 | NUR ---
HR DECREASED TO THE 120'S. SBP DECREASED TO THE 140'S.
--- NOTE | 2018-08-04 15:20 | NUR ---
transfer: [facility] has no beds, [facility] does not do chemo, [facility] will call back
--- NOTE | 2018-08-04 15:25 | NUR ---
I called [facility] and spoke to admitting RN and she had just found paperwork on pt. She will review and call back
--- NOTE | 2018-08-04 15:52 | NUR ---
Gabriel from [facility] called and asked for complete (whole chart) to be faxed to them. chart copied and faxed.
--- NOTE | 2018-08-04 16:00 | NUR ---
Gabriel [facility] Transfer RN. His ph # is [phone] and fax is [phone]
--- NOTE | 2018-08-04 16:10 | NUR ---
Transfer: Per Ban at [facility], pt is declined due to self pay status. If pt gets insurance, pls re call and they will review again
--- NOTE | 2018-08-04 17:55 | NUR ---
PT. STARTING TO SHIVER SLIGHTLY ALL OVER. MED. PT. WITH DEMEROL 25 MG. IVP.
--- NOTE | 2018-08-04 18:20 | NUR ---
PT FOUND ON 10L OXYMIZER WITH SAT 90% AND RR MID 20'S. RESPIRATIONS APPEARED LABORED. MED NEB TX ADMINISTERED VIA MASK. PT PLACED ON HFNC 40% AND 50L FLOW. PT REFUSED CPT AT THIS TIME. WILL CONTINUE TO MONITOR PT.
--- NOTE | 2018-08-04 19:15 | NUR ---
OPENING NOTE RECEIVED REPORT AND ASSUMED CARE OF PT FROM ANGEL SOLIS
[2018-08-05] VITALS (29 sets, daily range): BP systolic 129–166; BP diastolic 46–96
--- NOTE | 2018-08-05 01:23 | NUR ---
RECEIVED CALL FROM [facility] INQUIRING REGARDING IF PT IS STILL IN NEED OF A BED. INFORMED THEM THAT PT IS STILL IN NEED OF A BED. STATES NO BED AVAILABLE AT THIS TIME BUT WILL CONTINUE TO KEEP CASE OPEN FOR BED NEEDED.
[2018-08-05] MEDS: ACETYLCYSTEINE 10 %(100MG/ML) SOL 4ML NEB SCH ×6 (02:12→22:20)
[2018-08-05] MEDS: IPRATROPIUM BROM 0.5 MG/2.5ML INH SOL NEB SCH ×6 (02:12→22:19)
[2018-08-05] MEDS: LEVALBUTEROL HCL 1.25 MG/3 ML NEB NEB SCH ×6 (02:12→22:20)
[2018-08-05] MEDS: SODIUM CHLORIDE 0.9% 1,000 ML IV SCH ×3 (03:50→14:25)
[2018-08-05 04:14] LABS: Calcium 8.4 mg/dL (8.5-10.1); Potassium 4.5 mmol/L (3.5-5.1)
[2018-08-05 04:16] LABS: BUN/Creatinine Ratio 19.5
[2018-08-05 04:32] LABS: Hemoglobin 8.7 g/dL (13.5-17.5); Mean Corpuscular Hemoglobin 30.8 pg (28.0-32.0); Platelet Count (auto) 53 10^3/uL (140-450); Red Blood Cells 2.84 10^6/uL (4.5-5.90); Red Cell Distribution Width 18.4 % (11.8-14.3); White Blood Cell 2.4 10^3/uL (4.4-10.8)
[2018-08-05 04:36] LABS: Basophils % (manual) 0 (0.0-2.0); Blast Cells 0; Eosinophils % (manual) 0 (0-7); Metamyelocytes % 0; Myelocytes % 0; Promyelocytes % 0; Reactive Lymphocytes 0
[2018-08-05 05:38] LABS: Band Neutrophils % (manual) 6; Lymphocytes % (manual) 65 (10.0-50.0); Monocytes % (manual) 16 (0-12)
--- NOTE | 2018-08-05 07:15 | NUR ---
CLOSING NOTE SHIFT REPORT GIVEN AND CARE ENDORSED TO ANGEL SOLIS
--- NOTE | 2018-08-05 07:50 | NUR ---
ASSESS- PT. LYING IN BED WITH EYES CLOSED, AROUSABLE. ALERT AND ORIENTED TIMES FOUR. DENIES ANY PAIN OR DISCOMFORT. ON HIGH FLOW O2 50 LITERS, FIO2-50%. LUNGS COARSE LAN. INSPIRATORY AND EXPIRATORY. SOB WITH EXERTION. PRODUCTIVE COUGH WITH BLOODY SPUTUM. ABD. SOFT, FLAT, NON-TENDER. BOWEL SOUNDS ALL FOUR QUADRANTS. NO N/V. F/C TO GRAVITY WITH CLEAR LT. ALISIA URINE. RADIAL PULSES STRONG, PALPABLE LAN. PEDAL PULSES STRONG, PALPABLE LAN. NO EDEMA. PT. MOVES ALL EXTREMITIES WITHOUT DIFFICULTY. ABLE TO TURN SELF IN BED. SKIN INTACT. ON ISOLATION DROPLET PRECAUTIONS.
[2018-08-05] MEDS: Pro-Stat SF 30ml Vanilla PO SCH ×2 (08:00→17:47)
[2018-08-05] MEDS: Ensure Enlive Strawberry 8oz Bottle PO SCH ×3 (08:00→17:47)
--- NOTE | 2018-08-05 08:00 | NUR ---
TEMP 100.3 ORALLY. PLACED ICE PACKS LAN. AXILLA AND BEHIND PT'S. NECK. NO COVERS ON PT.
[2018-08-05] MEDS: cloNIDine HCL 0.1 MG TAB PO SCH ×2 (09:38→21:50)
[2018-08-05] MEDS: FLUCONAZOLE 200MG/100ML 100 ML IV SCH (09:38)
[2018-08-05] MEDS: LEVOFLOXACIN 750MG 150 ML IV SCH (09:38)
[2018-08-05] MEDS: ASPirin 81 mg TAB PO SCH (09:38)
--- NOTE | 2018-08-05 09:45 | NUR ---
PT. ASSISTED TO BSC TO HAVE BM. STEADY GAIT. SOB WITH EXERTION. HAD LG. SOFT BROWN BM. O2 SATS DECREASED TO MID 80'S WHEN GETTING BACK TO BED FOR FEW MINUTES.
--- NOTE | 2018-08-05 11:00 | NUR ---
PT. HAS BEEN SLEEPING. NO SIGNS OF DISTRESS OR DISCOMFORT.
[2018-08-05] MEDS: VANCOMYCIN 1,250 MG in D5W 5% 250 ML IV SCH (11:06)
--- NOTE | 2018-08-05 11:15 | NUR ---
DR. CUELLO Provider/Hospitalist at bedside. NEW ORDERS RECEIVED.
--- NOTE | 2018-08-05 12:05 | NUR ---
DR. FISH Provider/Hospitalist at bedside.
[2018-08-05 12:31] LABS: Creatinine, Urine 64 mg/dL (30.0-125.0); Sodium Urine 53 mmol/L (40-220)
[2018-08-05 12:48] LABS: Urine Bacteria None Seen /hpf (None Seen); Urine WBC None Seen /hpf (0 - 3)
[2018-08-05 13:32] LABS: Urine Blood 2+ /uL (Negative); Urine Specific Gravity 1.013 (1.001-1.035)
[2018-08-05] MEDS ORDERED: MORPHINE SULF INJ 2 MG/ML SYRINGE 1ML IV PRN ×3 (14:00→14:15)
[2018-08-05] MEDS ORDERED: traMADol HCL 50 MG TAB PO PRN (14:00)
--- NOTE | 2018-08-05 14:00 | NUR ---
DR. BAKER Provider/Hospitalist at bedside. GAVE UPDATE ON PT.
[2018-08-05] MEDS: CEFTAROLINE 600 MG in SODIUM CHL 0.9% 250 ML IV SCH (14:21)
[2018-08-05] MEDS: CALCIUM CARB 500 MG CHEW TAB PO PRN ×2 (14:52→22:07)
--- NOTE | 2018-08-05 14:52 | NUR ---
PT. HAVING HEARTBURN. MED. WITH TUMS 500 MG. PO.
--- NOTE | 2018-08-05 16:00 | NUR ---
TEMP 103.3 AXILLARY. PLACED ICE PACKS LAN. AXILLA AND BACK OF NECK. NO COVERS ON PT. NO SHIVERING AT THIS TIME.
[2018-08-05] MEDS: ACETAMINOPHEN 325 MG TAB PO PRN ×2 (16:19→23:35)
--- NOTE | 2018-08-05 16:19 | NUR ---
PT. GIVEN TYLENOL 650 MG. PO FOR TEMP OF 103.3 AXILLARY.
--- NOTE | 2018-08-05 17:45 | NUR ---
PT'S. TEMP DECREASED TO 100.9 ORALLY. ICE PACKS REMAIN IN PLACE.
--- NOTE | 2018-08-05 18:35 | NUR ---
FAMILY MEMBER AT THE BS.
--- NOTE | 2018-08-05 19:05 | NUR ---
OPENING NOTE RECEIVED REPORT AND ASSUMED CARE FROM ANGEL SOLIS
--- NOTE | 2018-08-05 19:40 | NUR ---
PAGED HOSPITALIST FOR PT'S COMPLAINT OF DRY NARES CAUSING BLEEDING
--- NOTE | 2018-08-05 19:45 | NUR ---
RECEIVED CALL BACK FROM DR. SINGH. ORDERS RECEIVED Addendum: 08/05/18 at 1953 by MEHRDAD THORNTON RN RN CORRECTION: DR. JUÁREZ
--- NOTE | 2018-08-05 20:30 | NUR ---
PER RN TRIPP PT WAS COUGHING QUITE A BIT WITH ACUTE DESATURATION TO 85% PT HF WAS INCREASED TO 45L AND 100% HF CANNULA REPLACED DUE TO BLOOD IN LINE. WILL MONITOR CLOSELY.
[2018-08-05] MEDS: MEPERIDINE HCL (25 MG/ML) 1ML VIAL IV PRN ×2 (20:45)
--- NOTE | 2018-08-05 20:52 | NUR ---
HF NOW AT 45L AND FIO2 DECREASED TO 80% POX 96-97%
[2018-08-05] MEDS: SALINE 0.65 % NASAL SPRAY 45ML BOTTLE EACHNOSTRI SCH (21:40)
[2018-08-06] VITALS (30 sets, daily range): BP systolic 102–157; BP diastolic 48–86
[2018-08-06] MEDS: CEFTAROLINE 600 MG in SODIUM CHL 0.9% 250 ML IV SCH ×2 (01:47→14:30)
[2018-08-06] MEDS: IPRATROPIUM BROM 0.5 MG/2.5ML INH SOL NEB SCH ×6 (02:20→22:07)
[2018-08-06] MEDS: ACETYLCYSTEINE 10 %(100MG/ML) SOL 4ML NEB SCH ×6 (02:21→22:07)
[2018-08-06] MEDS: LEVALBUTEROL HCL 1.25 MG/3 ML NEB NEB SCH ×6 (02:21→22:07)
[2018-08-06 04:02] LABS: Hemoglobin 7.7 g/dL (13.5-17.5)
[2018-08-06 04:05] LABS: Mean Corpuscular Hemoglobin 31.2 pg (28.0-32.0); Mean Corpuscular Volume 89.1 fL (80.0-100.0); Platelet Count (auto) 42 10^3/uL (140-450); Red Blood Cells 2.47 10^6/uL (4.5-5.90); Red Cell Distribution Width 18.6 % (11.8-14.3)
[2018-08-06 04:32] LABS: Albumin 1.3 g/dL (3.4-5.0); BUN/Creatinine Ratio 19.6; Potassium 4.1 mmol/L (3.5-5.1)
[2018-08-06 04:35] LABS: Total Protein 8.3 g/dL (6.4-8.2)
[2018-08-06 04:43] LABS: White Blood Cell 1.5 10^3/uL (4.4-10.8)
[2018-08-06 04:44] LABS: Basophils % (manual) 0 (0.0-2.0); Blast Cells 0; Eosinophils % (manual) 0 (0-7); Metamyelocytes % 0; Myelocytes % 0; Promyelocytes % 0; Reactive Lymphocytes 0
[2018-08-06] MEDS: SALINE 0.65 % NASAL SPRAY 45ML BOTTLE EACHNOSTRI SCH ×4 (05:18→22:35)
[2018-08-06] MEDS: ACETAMINOPHEN 325 MG TAB PO PRN ×3 (05:28→20:42)
[2018-08-06] MEDS: SODIUM CHLORIDE 0.9% 1,000 ML IV SCH ×3 (05:28→22:36)
--- NOTE | 2018-08-06 06:32 | NUR ---
Respiratory note: PT REFUSED MN TX AT THIS TIME. PT STATED HE DIDNT FEEL UP FOR IT AT THE MOMENT. NO SOB OR DISTRESS NOTED.
--- NOTE | 2018-08-06 07:10 | NUR ---
CLOSING NOTE SHIFT REPORT GIVEN AND CARE ENDORSED TO ESTELA SOLIS
[2018-08-06] MEDS: Pro-Stat SF 30ml Vanilla PO SCH ×2 (08:47→19:30)
--- NOTE | 2018-08-06 09:34 | NUR ---
MD MORAES AT BEDSIDE MD AT BEDSIDE, UPDATED ON PATIENT STATUS.
[2018-08-06 09:53] LABS: Band Neutrophils % (manual) 6; Lymphocytes % (manual) 50 (10.0-50.0); Monocytes % (manual) 28 (0-12)
[2018-08-06] MEDS: Ensure Enlive Strawberry 8oz Bottle PO SCH ×3 (10:07→18:00)
[2018-08-06] MEDS: FLUCONAZOLE 200MG/100ML 100 ML IV SCH (10:08)
[2018-08-06] MEDS: cloNIDine HCL 0.1 MG TAB PO SCH ×2 (10:09→22:34)
[2018-08-06] MEDS: LEVOFLOXACIN 750MG 150 ML IV SCH (10:10)
[2018-08-06] MEDS: ASPirin 81 mg TAB PO SCH (10:10)
--- NOTE | 2018-08-06 10:29 | NUR ---
I called [facility] [phone] and spoke with tank house supervisor Lissa, she said they have no beds available and have several patients waiting in their ER for a bed.
--- NOTE | 2018-08-06 10:29 | NUR ---
I called [facility] and left message for dye house worker.
[2018-08-06] MEDS: MEPERIDINE HCL (25 MG/ML) 1ML VIAL IV PRN ×2 (10:37→19:03)
--- NOTE | 2018-08-06 10:40 | NUR ---
DEMEROL GIVEN FOR SHIVERING
--- NOTE | 2018-08-06 10:41 | NUR ---
Respiratory note: PT REFUSED MN TX AT THIS TIME. PT RECEIVED DEMEROL FOR SHIVERING. PT STATED HE WILL TRY TO TAKE THE NEXT ONE. RN AT BEDSIDE AND AWARE OF REFUSALS.
--- NOTE | 2018-08-06 15:00 | NUR ---
MD BAKER AT BEDSIDE UPDATED ON PATIENTS STATUS. ORDERS RECEIVED.
--- NOTE | 2018-08-06 15:20 | NUR ---
I called Iraj Espino [phone]-he stated that patient's medi-nai is still pending, no change from the last time I spoke with him.
--- NOTE | 2018-08-06 17:09 | NUR ---
I called [facility], they are only able to accept [place] transfers at this time.
--- NOTE | 2018-08-06 17:09 | NUR ---
I called [facility] [phone] and left message asking about bed availability for this patient.
--- NOTE | 2018-08-06 18:45 | NUR ---
Respiratory note: RECEIVED PT ON HFNC UNIT, UNIT CONNECTED TO RED OUTLET O2 AND MEDICAL AIR SOURCE. WATER LEVEL IS ALMOST LOW WILL CHANGE SOON, BS ARE DIMINISHED T/O, CPT DELIVERED VIA BED. RT NAME AND PAGER ASSIGNMENT WRITTEN ON PTS ROOM BOARD. WILL CONTINUE TO MONITOR.
--- NOTE | 2018-08-06 18:57 | NUR ---
CLOSING NOTE. PATIENT EATING DINNER IN HIGH FOWLERS POSITION INDEPENDENTLY. ON HIGH FLOW O2 STATING 96-99% RANGE, NO SIGNS OF DISTRESS NOTED.
--- NOTE | 2018-08-06 19:40 | NUR ---
Respiratory note: HFNC CHRISTIN WATER CHANGED AT THIS TIME WITHOUT INCIDENT.
--- NOTE | 2018-08-06 19:45 | NUR ---
Opening Shift Note Assumed care of patient, awake and alert. Patient denies any SOB at the moment. He just had his breathing treatment. Patient is on High Flow Oxygen 40L/min, 50% FiO2. Saturations 94%-96%. Patient able to cough out his phlegm. Febrile Temp 100.1F - will give Tylenol. HR 120/min, BP 140 mmHg systolic. No complains of pain at this time. Full assessment done - refer interventions. IV site checked -no redness/swelling seen. With ongoing IV NS at 100ml/hr. With Last catheter draining well. Instructed on POC and to call for assist PRN, will continue to monitor for changes Q1hr and PRN.
--- NOTE | 2018-08-06 20:07 | NUR ---
Respiratory note: ROUTINE HFNC CHECK. MED NEB TX GIVEN VIA MOUTH PIECE PT TOLERATING TX WELL. CPT GIVEN VIA BED. PT STATES HE DOES NOT WANT TO BE WOKEN UP FOR SCHEDULED 0200 MED NEB TX. IRMA WILLAMS MADE AWARE. NO HFNC CHANGES MADE AT THIS TIME.
--- NOTE | 2018-08-06 22:20 | NUR ---
TEMP TEMP RE-CHECKED 98.1F
--- NOTE | 2018-08-06 22:30 | NUR ---
ROUNDS 10PM MEDICATIONS GIVEN- INDICATION EXPLAINED.VERBALIZED UNDERSTANDING HR 112/MIN, BP 121/70 MM[facility] ASSISTED PATIENT IN TURNING TO HIS SIDE. REQUESTS FOR A SLEEPING PILL
--- NOTE | 2018-08-06 22:45 | NUR ---
HOSPITALIST PAGED FOR DOWNGRADE ORDER
--- NOTE | 2018-08-06 23:50 | NUR ---
HOSPITALIST CALLED BACK INFORMED THAT CHARGE NURSE IS ASKING IF PATIENT CAN BE DOWNGRADED TO [facility] STATUS HE WILL REVIEW AND SEE
[2018-08-07] VITALS (30 sets, daily range): BP systolic 104–165; BP diastolic 54–99
[2018-08-07] MEDS: MEPERIDINE HCL (25 MG/ML) 1ML VIAL IV PRN ×3 (01:22→21:45)
--- NOTE | 2018-08-07 01:24 | NUR ---
SHIVERING PATIENT CALLED.NOTED SHIVERING COVERED WITH BLANKET. TEMP CHECKED 98.5F AFTER FEW MINUTES PATIENT IS STILL SHIVERING - WILL GIVE DEMEROL
[2018-08-07] MEDS: LEVALBUTEROL HCL 1.25 MG/3 ML NEB NEB SCH ×6 (01:58→21:57)
[2018-08-07] MEDS: IPRATROPIUM BROM 0.5 MG/2.5ML INH SOL NEB SCH ×6 (01:58→21:57)
[2018-08-07] MEDS: ACETYLCYSTEINE 10 %(100MG/ML) SOL 4ML NEB SCH ×6 (01:58→21:57)
--- NOTE | 2018-08-07 01:59 | NUR ---
Respiratory note: PAGED TO BEDSIDE PT HAVING DESATURATING EPISODE POST PRODUCTIVE COUGHING SPELL. IRMA ANN AT BEDSIDE. CHANGES TO HFNC MADE. HNFC SETTINGS NOW AT 50LPM WITH 60% FIO2. MED NEB TX GIVEN AT THIS TIME WITH CPT BEING DELIVERED VIA BED PERCUSSION. IRMA ANN MADE AWARE OF CHANGES. WILL CONTINUE TO MONITOR.
--- NOTE | 2018-08-07 02:19 | NUR ---
DESATURATION CHARGE NURSE POONAM COVERED THIS RN FOR BREAK - INFORMED ME THAT PATIENT IS SHIVERING AND DESATURATED LOW 78% RT WAS PAGED AND HIGH FLOW TITRATED TO 50L 60%FIO2 ROUNDED ON PATIENT - SATURATION NOW 96% PATIENT'S EYES CLOSED, LOOKED COMFORTABLE NO SHIVERING NOTED BUT HR 128/MIN, BP 145/87 [facility] WILL CLOSELY MONITOR
[2018-08-07] MEDS: CEFTAROLINE 600 MG in SODIUM CHL 0.9% 250 ML IV SCH ×2 (02:30→14:13)
[2018-08-07] MEDS: ACETAMINOPHEN 325 MG TAB PO PRN ×4 (03:58→23:56)
--- NOTE | 2018-08-07 04:00 | NUR ---
FEBRILE PATIENT'S TEMP 103F SPONGE BATH RENDERED, ICE PACKS PLACED TEMP RECHECKED AFTER STILL 103F TYLENOL GIVEN PAGED HOSPITALIST FOR POSSIBLE CULTURE
[2018-08-07 04:25] LABS: Hemoglobin 7.4 g/dL (13.5-17.5); Mean Corpuscular Hgb Conc. 34.7 g/dL (32.0-36.0); Red Blood Cells 2.41 10^6/uL (4.5-5.90)
[2018-08-07 04:27] LABS: Hematocrit 21.5 % (41.0-53.0); Mean Corpuscular Volume 89.2 fL (80.0-100.0); Platelet Count (auto) 37 10^3/uL (140-450)
[2018-08-07 04:33] LABS: Potassium 3.9 mmol/L (3.5-5.1)
--- NOTE | 2018-08-07 04:37 | NUR ---
HOSPITALIST CALLED BACK TALKED TO TEENA CORONA INFORMED THAT PATIENT'S TEMP IS 103F LAST CULTURE DONE : SPUTUM 07/25, BLOOD CS 07/27, URINE 07/23 TELEPHONE ORDER RECEIVED : REPEAT CULTURES SPUTUM,BLOOD AND URINE
[2018-08-07 04:38] LABS: BUN/Creatinine Ratio 20.3; Calcium 8.3 mg/dL (8.5-10.1)
[2018-08-07 04:46] LABS: White Blood Cell 1.1 10^3/uL (4.4-10.8)
[2018-08-07 04:48] LABS: Basophils % (manual) 0 (0.0-2.0); Eosinophils % (manual) 0 (0-7); Metamyelocytes % 0; Promyelocytes % 0
--- NOTE | 2018-08-07 05:00 | NUR ---
LAB INFORMED LAB OF BLOOD CULTURE ORDER - SHE WILL INFORM THE BIOCHEMISTRY PROFESSOR
--- NOTE | 2018-08-07 05:00 | NUR ---
TEMP RE-ASSESS CHECKED PATIENT'S TEMP = 99.4F KEPT ICE PACKS AND FAN ON
--- NOTE | 2018-08-07 05:47 | NUR ---
LAB RESULTS INFORMED ELECTRIC MOTOR TESTER ASSEMBLER CHLOE OF LAB RESULTS WBC 1.1, HGB 7.4, PLATELETS 37 NOTED , NO ORDERS RECEIVED
[2018-08-07] MEDS: SALINE 0.65 % NASAL SPRAY 45ML BOTTLE EACHNOSTRI SCH ×4 (06:33→22:50)
[2018-08-07] MEDS: Ensure Enlive Strawberry 8oz Bottle PO SCH ×3 (08:00→19:17)
[2018-08-07 08:06] LABS: Immunoglobulin G, Serum 2991 mg/dL (700-1600)
[2018-08-07] MEDS: FLUCONAZOLE 200MG/100ML 100 ML IV SCH (10:13)
[2018-08-07] MEDS: LEVOFLOXACIN 750MG 150 ML IV SCH (10:14)
[2018-08-07] MEDS: Pro-Stat SF 30ml Vanilla PO SCH ×2 (10:23→19:17)
[2018-08-07] MEDS: cloNIDine HCL 0.1 MG TAB PO SCH ×2 (10:23→21:43)
--- NOTE | 2018-08-07 10:40 | NUR ---
DR ALVARADO AT BEDSIDE, DR IVY PATIENT
[2018-08-07] MEDS: SODIUM CHLORIDE 0.9% 1,000 ML IV SCH ×2 (11:17→14:12)
[2018-08-07 13:03] LABS: Band Neutrophils % (manual) 4; Lymphocytes % (manual) 54 (10.0-50.0)
[2018-08-07 13:04] LABS: Blast Cells 1; Monocytes % (manual) 15 (0-12); Myelocytes % 2; Reactive Lymphocytes 2
--- NOTE | 2018-08-07 13:34 | NUR ---
VISITOR AT BEDSIDE
--- NOTE | 2018-08-07 20:00 | NUR ---
OPEN NOTES PATIENT SEEN RESTING, ICE PACKS FOR FEVER. PATIENT'S TEMP = 100.9F TRENDING DOWN. HR REMAINED TACHYCARDIC, BP STABLE. STILL ON HIGH FLOW NASAL CANNULA 40L/MIN, FIO2 60%, SATURATIONS 96-97% LUNG SOUNDS SLIGHTLY DIMINISHED TONIGHT FULL ASSESSMENT DONE. RE-HEATED FOOD FOR DINNER WILL CONTINUE TO MONITOR
--- NOTE | 2018-08-07 20:30 | NUR ---
DINNER PATIENT ATE 50% OF HIS DINNER
--- NOTE | 2018-08-07 21:35 | NUR ---
SHIVERING PATIENT'S TEMP 98.7F PATIENT SHIVERING A LITTLE BIT. COVERED WITH BLANKET WILL CONTINUE TO MONITOR
--- NOTE | 2018-08-07 21:45 | NUR ---
SHIVERING PATIENT SHIVERING BECOMING WORSE - DEMEROL GIVEN
--- NOTE | 2018-08-07 23:59 | NUR ---
FEBRILE PATIENT'S TEMP 103F COOLING MEASURES DONE ORAL TYLENOL GIVEN WILL CONTINUE TO MONITOR
[2018-08-08] VITALS (33 sets, daily range): BP systolic 109–172; BP diastolic 55–102
--- NOTE | 2018-08-08 00:30 | NUR ---
TEMP RE-CHECKED TEMP =102.2F ICE PACKS KEPT COLD COMPRESS ON FOREHEAD
[2018-08-08] MEDS: ACYCLOVIR SOD 50MG/ML 800 MG in SODIUM CHL 0.9% 250 ML IV SCH ×2 (00:40→18:29)
[2018-08-08] MEDS: CEFTAROLINE 600 MG in SODIUM CHL 0.9% 250 ML IV SCH ×2 (01:54→17:11)
--- NOTE | 2018-08-08 02:00 | NUR ---
TEMP RE-ASSESS PATIENT'S TEMP RE-CHECKED 99F WILL CONTINUE TO MONITOR
[2018-08-08] MEDS: LEVALBUTEROL HCL 1.25 MG/3 ML NEB NEB SCH ×6 (02:07→21:15)
[2018-08-08] MEDS: IPRATROPIUM BROM 0.5 MG/2.5ML INH SOL NEB SCH ×6 (02:07→21:15)
[2018-08-08] MEDS: ACETYLCYSTEINE 10 %(100MG/ML) SOL 4ML NEB SCH ×6 (02:08→21:15)
--- NOTE | 2018-08-08 04:00 | NUR ---
FEBRILE PATIENT'S TEMP 101F COOLING MEASURES DONE
[2018-08-08] MEDS: LABETALOL HCL 5 MG/ML ML 20ML VIAL IV PRN (04:40)
[2018-08-08] MEDS: SODIUM CHLORIDE 0.9% 1,000 ML IV SCH ×2 (05:41→17:45)
[2018-08-08] MEDS: SALINE 0.65 % NASAL SPRAY 45ML BOTTLE EACHNOSTRI SCH ×4 (05:41→23:10)
[2018-08-08 05:50] LABS: Basophils # (auto) 0 uL; Basophils % (auto) 1.5 % (0.0-2.0); Eosinophils # (auto) 0 uL; Eosinophils % (auto) 0.1 % (0.0-7.0); Hematocrit 20.5 % (41.0-53.0); Lymphocytes # (auto) 0.5 uL; Lymphocytes % (auto) 52.8 % (10.0-50.0); Mean Corpuscular Hemoglobin 30.7 pg (28.0-32.0); Mean Corpuscular Hgb Conc. 34.2 g/dL (32.0-36.0); Mean Corpuscular Volume 89.5 fL (80.0-100.0); Monocytes # (auto) 0.2 uL; Neutrophils # (auto) 0.2 uL; Neutrophils % (auto) 18.5 % (37.0-80.0); Nucleated Red Blood Cells % 0.6 %; Platelet Count (auto) 40 10^3/uL (140-450); Red Blood Cells 2.29 10^6/uL (4.5-5.90)
[2018-08-08 05:54] LABS: Monocytes % (auto) 27.1 % (0.0-12.0); White Blood Cell 0.9 10^3/uL (4.4-10.8)
--- NOTE | 2018-08-08 06:00 | NUR ---
TEMP PATIENT'S TEMP RECHECKED 100.9F WILL GIVE TYLENOL
[2018-08-08 06:01] LABS: Potassium 3.7 mmol/L (3.5-5.1)
[2018-08-08 06:05] LABS: BUN/Creatinine Ratio 17.6; Calcium 8.3 mg/dL (8.5-10.1)
[2018-08-08] MEDS: ACETAMINOPHEN 325 MG TAB PO PRN ×4 (06:17→23:36)
--- NOTE | 2018-08-08 06:48 | NUR ---
PAGED ONCO/SUSAN PAGED ONCO/SUSAN TO INFORM OF CRITICAL WBC AND HGB RESULTS AWAITING CALL BACK
--- NOTE | 2018-08-08 06:51 | NUR ---
MD CALLED BACK TALKED TO DR. HAYNES INFORMED OF CRITICAL WBC AND HGB LEVELS NO ORDERS RECEIVED
--- NOTE | 2018-08-08 08:00 | NUR ---
ASSESSMENT COMPLETED, SEE INTERVENTIONS. PATIENT AWAKE A/O X 4. CALL LIGHT IN REACH.
[2018-08-08] MEDS: LEVOFLOXACIN 750MG 150 ML IV SCH (10:13)
[2018-08-08] MEDS: cloNIDine HCL 0.1 MG TAB PO SCH ×2 (10:13→23:10)
--- NOTE | 2018-08-08 10:23 | NUR ---
DR JUÁREZ AT BEDSIDE, DR GAVE NEW ORDERS FOR ACYCLOVIR AND BACTRIM IVPB ONE TIME DOSES THEN PHARMACY TO DOSE. WILL VERIFY WITH PHARMACY. DR EXAMINED PATIENT.
[2018-08-08] MEDS ORDERED: ACYCLOVIR SOD 50MG/ML 800 MG in SODIUM CHL 0.9% 250 ML IV ONE (10:30)
[2018-08-08] MEDS ORDERED: SULFAMETH-TRIMETH 80/16MG-ML 10 ML in D5W 5% 250 ML IV ONE (10:30)
[2018-08-08] MEDS ORDERED: BACTRIM 5MG/KG Q8HR PER RX 0 ML IV SCH (10:45)
[2018-08-08] MEDS ORDERED: ACYCLOVIR 5MG/KG Q8HR PER RX 0 ML IV SCH (10:45)
[2018-08-08] MEDS ORDERED: MICAFUNGIN SODIUM 100 MG in SODIUM CHL 0.9% 100 ML IV ONE (10:45)
[2018-08-08] MEDS ORDERED: SULFAMETH-TRIMETH 80/16MG-ML 10 ML in D5W 5% 250 ML IV SCH (12:00)
[2018-08-08] MEDS: Ensure Enlive Strawberry 8oz Bottle PO SCH ×3 (12:00→18:44)
[2018-08-08] MEDS: Pro-Stat SF 30ml Vanilla PO SCH ×2 (12:05→18:44)
--- NOTE | 2018-08-08 12:22 | NUR ---
TYLENOL GIVEN AND COOLING MEASURES PROVIDED FOR TEMP 103
[2018-08-08] MEDS: SULFAMETH-TRIMETH 80/16MG-ML 25 ML in D5W 5% 500 ML IV SCH ×2 (13:00→22:00)
--- NOTE | 2018-08-08 15:14 | NUR ---
Nutrition Follow-up Notes Wt.: 106.0 kg Pt's in isolation room, on oxygen via nasal cannula, asleep, no signs of distress, currently on 2 gms Na, neutropenic diet with Ensure Enlive 1 carton TID and Prostat 1 pkt BID, with fair PO of avg 65% x 2 days per RN doc Est. Needs ABW [id number] kcal (23-25 kcal/kgBW), 75-93 gms pro (0.8-1.0 gms/kgBW r/t elev RFT). Will continue to monitor pertinent labs and reassess nutrient need prn Labs: BUN 30 H, CREAT 1.7 H, CA 8.3 L.ALB 1.3 L. Skin: Jeremiah scale 16, mod risk, skin intact per food sanitarian. GI: Pt had 1 BM yesterday per food sanitarian. PES: Altered nutrition related lab values r/t current/chronic medical condition aeb elev RFT hyperbil, elev LFTs Obesity r/t food intake more than body requirement aeb 143% IBW, BMI 34.6 kg/m2 and increased body adiposity Will continue to monitor PO intake, skin status, pertinent labs and weight trend. F/u in 3 to 5 days. Rec.: 1.) Continue close supervision during meals. 2.) Refer pt to RD for further nutrition education and weight monitoring upon discharge. 3.) Continue current plan of care.
[2018-08-08] MEDS: MEPERIDINE HCL (25 MG/ML) 1ML VIAL IV PRN (15:52)
--- NOTE | 2018-08-08 15:52 | NUR ---
DEMEROL GIVEN FOR SHIVERING AND RT PAGED FOR DROP IN SPO2 TO 83%. RN PLACED PATIENT IN HIGH FOWLERS.
--- NOTE | 2018-08-08 15:55 | NUR ---
Respiratory note: PT BEGAN DESATTING TO 80%, INCREASED SETTINGS ON HFNC. PT NOW ON HFNC 50L, FIO2 80%, TOLERATING CHANGES WELL. IRMA PALMER AT BEDSIDE AND MADE AWARE OF CHANGES. BREATH SOUNDS DIM COARSE CRACKLES. FAMILY AT BEDSIDE. WILL ENDORSE PT CARE TO NOC SHIFT RT.
--- NOTE | 2018-08-08 16:00 | NUR ---
ATTEMPTED TO OBTAIN SECOND IV FOR ACCESS. UNABLE TO OBTAIN ACCESS BY THIS RN X 2 ATTEMPTS AND UNABLE TO OBTAIN ACCESS X 2 ATTEMPTS BY MILK OF LIME SLAKER STUDENT. WILL ENDORSE TO HAMMER SETTER RN. LEFT ARM 22G PATENT.
[2018-08-08] MEDS: PROMETHAZINE HCL 25 MG/ML 1ML IV PRN (17:48)
--- NOTE | 2018-08-08 18:04 | NUR ---
TEMP 103.8 TYLENOL GIVEN, ICE PACKS IN PLACE
--- NOTE | 2018-08-08 20:40 | NUR ---
PT. UP TO BEDSIDE CHAIR AND SOAKING HIS FEET IN EPSOM SALT PER PT. REQUEST; PT. FEET HURTING; PT. TOLERATING WELL.
--- NOTE | 2018-08-08 21:15 | NUR ---
PT. BACK IN BED.
[2018-08-09] VITALS (33 sets, daily range): BP systolic 96–183; BP diastolic 59–103
[2018-08-09] MEDS: PROMETHAZINE HCL 25 MG/ML 1ML IV PRN (00:11)
[2018-08-09] MEDS: IPRATROPIUM BROM 0.5 MG/2.5ML INH SOL NEB SCH ×6 (01:30→22:44)
[2018-08-09] MEDS: ACETYLCYSTEINE 10 %(100MG/ML) SOL 4ML NEB SCH ×6 (01:30→22:44)
[2018-08-09] MEDS: LEVALBUTEROL HCL 1.25 MG/3 ML NEB NEB SCH ×6 (01:30→22:44)
[2018-08-09] MEDS: CEFTAROLINE 600 MG in SODIUM CHL 0.9% 250 ML IV SCH ×2 (02:17→18:09)
[2018-08-09] MEDS: SODIUM CHLORIDE 0.9% 1,000 ML IV SCH (03:45)
[2018-08-09] MEDS: SULFAMETH-TRIMETH 80/16MG-ML 25 ML in D5W 5% 500 ML IV SCH (04:00)
[2018-08-09 04:19] LABS: Hematocrit 18.7 % (41.0-53.0); Mean Corpuscular Hemoglobin 31.2 pg (28.0-32.0); Mean Corpuscular Hgb Conc. 34.7 g/dL (32.0-36.0); Mean Corpuscular Volume 89.6 fL (80.0-100.0); Platelet Count (auto) 34 10^3/uL (140-450); Red Blood Cells 2.09 10^6/uL (4.5-5.90); Red Cell Distribution Width 18.4 % (11.8-14.3)
[2018-08-09 04:27] LABS: Hemoglobin 6.5 g/dL (13.5-17.5); White Blood Cell 1.5 10^3/uL (4.4-10.8)
[2018-08-09 04:28] LABS: Basophils % (manual) 0 (0.0-2.0); Eosinophils % (manual) 0 (0-7); Metamyelocytes % 0; Myelocytes % 0; Promyelocytes % 0
[2018-08-09] MEDS: SALINE 0.65 % NASAL SPRAY 45ML BOTTLE EACHNOSTRI SCH ×4 (06:20→22:00)
[2018-08-09] MEDS: LABETALOL HCL 5 MG/ML ML 20ML VIAL IV PRN (06:36)
[2018-08-09 06:50] LABS: BUN/Creatinine Ratio 15.4; Calcium 7.8 mg/dL (8.5-10.1); Potassium 3.7 mmol/L (3.5-5.1)
[2018-08-09] MEDS: ACYCLOVIR SOD 50MG/ML 800 MG in SODIUM CHL 0.9% 250 ML IV SCH (07:10)
--- NOTE | 2018-08-09 07:26 | NUR ---
Respiratory note: PATIENT REFUSED MED NEB TX, AND CPT. STATED THAT HE WAS JUST NOT IN THE MOOD FOR IT TODAY. EXPLAINED TO PATIENT THE IMPORTANCE OF RECEIVING HIS TREATMENTS. ASSESSED PATIENT. SPO2 97% BS CLEAR/DIMINISHED T/O, HR 102, RR 20. NO RESPIRATORY DISTRESS NOTED. PATIENT WAS ADVISED TO PUSH CALL BUTTON IF HE HAD ANY SOB OR WHEEZING.
--- NOTE | 2018-08-09 09:00 | NUR ---
PRBC TRANSFUSION AT THIS TIME CONSENT TO GIVE BLOOD SIGNED AT THIS TIME BY PATIENT. STARTED TRANSFUSION OF X1 PRBC AT THIS TIME. SEE FLOW SHEET. CONTINUE CARE.
--- NOTE | 2018-08-09 09:16 | NUR ---
I called [facility] [phone] and spoke with housekeeping attendant Lissa, she said they have no beds available and have several patients in ER waiting for a bed.
[2018-08-09] MEDS: MEPERIDINE HCL (25 MG/ML) 1ML VIAL IV PRN (09:30)
[2018-08-09] MEDS: LORazepam 0.5 MG TAB PO PRN (09:30)
--- NOTE | 2018-08-09 09:30 | NUR ---
I called [facility] [phone] and spoke with Barney, faxed her requested updated face sheet with contact information for myself as well as Dr. Ragsdale and the nurse's station-she said they will review the information and give me a call back.
[2018-08-09] MEDS: cloNIDine HCL 0.1 MG TAB PO PRN (09:31)
[2018-08-09] MEDS: Ensure Enlive Strawberry 8oz Bottle PO SCH ×3 (09:36→18:10)
[2018-08-09] MEDS: Pro-Stat SF 30ml Vanilla PO SCH ×2 (09:37→18:00)
--- NOTE | 2018-08-09 09:37 | NUR ---
Respiratory note: PATIENT O2 TITRATED FROM 85% TO 90% DUE TO DECREASED SATURATIONS, AND PAIENT INCREASED WOB. GAVE PATIENT MEDNEB TX, WITH CPT. BS CLEAR/DIMINISHED THROUGH OUT. PATIENT HAS A PRODUCTIVE COUGH WITH SMALL,THICK, BLOOD TINGED SECRETIONS. NO ADVERSE REACTIONS NOTED. WILL CONTINUE TO MONITOR PATIENT.
--- NOTE | 2018-08-09 09:42 | NUR ---
I called [facility] [phone] and spoke with Mathew at the transfer center regarding request for transfer, faxed him requested updated face sheet as well as current progress notes, provided him with contact information for both Dr. Ragsdale and the nurse's station as well as myself.
[2018-08-09] MEDS ORDERED: MICAFUNGIN SODIUM 100 MG in SODIUM CHL 0.9% 100 ML IV SCH (10:00)
--- NOTE | 2018-08-09 10:16 | NUR ---
PAGED DR. BAKER: WAIT FOR CALL BACK NEEDING ORDERS AT THIS TIME. PATIENT RECEIVING BLOOD TRANSFUSION X1 UNIT PRBC AT THIS TIME. CURRENT VS SUCH: TEMP 103.0 ORAL BP 183/103 HR 123 PATIENT CURRENTLY ON 90% FIO2 ON 50 L HIGH FLOW. CONTINUE CARE.
--- NOTE | 2018-08-09 10:20 | NUR ---
I called [facility] [phone] and spoke with Lily in Admissions-faxed her requested face sheet-she will run patient's financial information and give me a call back.
[2018-08-09] MEDS ORDERED: IBUPROFEN 600 MG TAB PO ONE (10:30)
[2018-08-09] MEDS ORDERED: FUROSEMIDE 20 MG/2 ML VIAL ONE (10:30)
[2018-08-09] MEDS ORDERED: FUROSEMIDE 20 MG/2 ML VIAL IV ONE (10:30)
--- NOTE | 2018-08-09 10:35 | NUR ---
LASIX GIVEN AT THIS TIME: STATUS ORDERS RECEIVED FROM DR. BAKER. GIVEN LASIX 20 MG IVP X1 NOW. HR 125, RR 28, BP 169/103, SATS 92%. WILL CONTINUE TO MONITOR CLOSELY. Addendum: 08/09/18 at 1956 by Luisa Mendez RN RECEIVED ORDERS FROM DR. BAKER AT THIS TIME.
[2018-08-09] MEDS: cloNIDine HCL 0.1 MG TAB PO SCH ×2 (10:52→22:50)
[2018-08-09 11:50] LABS: INR 1.12 (0.9-1.15); Partial Thromboplastin Time 34.1 sec (23.64-32.05)
[2018-08-09 12:03] LABS: Band Neutrophils % (manual) 4; Blast Cells 2; Lymphocytes % (manual) 66 (10.0-50.0); Monocytes % (manual) 18 (0-12); Reactive Lymphocytes 1
--- NOTE | 2018-08-09 12:30 | NUR ---
BLOOD TRANSFUSION COMPLETED PATIENT TOLERATED WELL. SEE BLOOD TRANSFUSION FLOW SHEET FOR FURTHER INFORMATION. CONTINUE CARE. WILL MONITOR CLOSELY.
[2018-08-09] MEDS ORDERED: MORPHINE SULF INJ 2 MG/ML SYRINGE 1ML IV PRN ×3 (13:00→13:15)
[2018-08-09] MEDS ORDERED: SERTRALINE HCL 50 MG TAB PO ONE (13:00)
[2018-08-09] MEDS ORDERED: LORazepam 0.5 MG TAB PO PRN (13:00)
[2018-08-09] MEDS ORDERED: TEMAZEPAM 15 MG CAP PO PRN (13:00)
[2018-08-09] MEDS ORDERED: PROMETHAZINE-DM 5 ML ORAL SYRUP GT PRN (13:00)
--- NOTE | 2018-08-09 14:45 | NUR ---
PATIENT GIVEN MEDNEB TX IN LINE, WITH CPT ON BED. NO ADVERSE REACTIONS NOTED. BS CLEAR T/O. TITRATED O2 70% FLOW 50. PATIENT TOLERATING FLOW, AND O2 CHANGES WELL. NO RESPIRATORY DISTRESS NOTED. WILL CONTINUE TO MONITOR PATIENT. Respiratory note:
[2018-08-09] MEDS: LEVOFLOXACIN 750MG 150 ML IV SCH (15:00)
--- NOTE | 2018-08-09 15:18 | NUR ---
I received a phone call from Lily at [facility], faxed requested items to [phone]-their MD will look over clinical information and then give Dr. Ragsdale a call.
--- NOTE | 2018-08-09 15:20 | NUR ---
I called [facility] [phone] transfer center and was told that they are waiting for an accepting physician-who will then contact Dr. Ragsdale.
--- NOTE | 2018-08-09 16:17 | NUR ---
PICC line placement Patient educated on need for PICC line placement by primary RN. All risks and benefits explained and all questions and concerns addressed prior to procedure. Noted past medical history and allergies with no contraindications. INR and Plt counts within acceptable range. 5 fr PICC line inserted via right brachial vein using Blucarat's Site Rite US and Tip Location System. Sterile technique with maximum barrier precautions utilized. Blood return obtained from each of the three lumens and each flushed easily with NS using proper technique. PICC secured with Stat-lock; biodisc and occlusive dressing applied. Stat portable chest x-ray obtained for PICC tip placement. *Baseline Arm Circumference 35 cm. *Internal Length 50 cm. *External Length 0 cm. *PICC lot #[id number]. Note: Placed easily. EBL 5mls.
--- NOTE | 2018-08-09 16:17 | NUR ---
OKAY TO USE PICC LINE: PICC LINE GERONIMO AT BEDSIDE. CXR TAKEN AND CHECKED BY PICC LINE RN. OKAYED TO USE. CONTINUE CARE.
[2018-08-09] MEDS ORDERED: LIDOCAINE 1% (LOCAL ANESTH.) PF 5ml SDV ID ONE (16:30)
--- NOTE | 2018-08-09 18:37 | NUR ---
Respiratory note: PT CURRENTLY REFUSING BREATHING TX. STATES HE IS TIRED. INFORMED PT TO CALL IF HE BECOMES SOB AND NEEDS A TX AND THAT NEXT TX IS DUE AT 2200. PT REMAINS ON HIGH FLOW. FAMILY AND RN AT BEDSIDE. WILL CONTINUE WITH CARE.
[2018-08-09 18:57] LABS: Hematocrit 15.3 % (41.0-53.0); Mean Corpuscular Hemoglobin 30.9 pg (28.0-32.0); Mean Corpuscular Hgb Conc. 34.1 g/dL (32.0-36.0); Mean Corpuscular Volume 90.5 fL (80.0-100.0); Platelet Count (auto) 25 10^3/uL (140-450); Red Blood Cells 1.69 10^6/uL (4.5-5.90); Red Cell Distribution Width 17.9 % (11.8-14.3)
[2018-08-09 19:16] LABS: BUN/Creatinine Ratio 17.6
[2018-08-09 19:43] LABS: Calcium 5.8 mg/dL (8.5-10.1); Potassium 2.7 mmol/L (3.5-5.1)
[2018-08-09 20:26] LABS: Band Neutrophils % (manual) 0; Basophils % (manual) 0 (0.0-2.0); Eosinophils % (manual) 0 (0-7); Metamyelocytes % 0; Myelocytes % 0; Promyelocytes % 0
[2018-08-09] MEDS: SODIUM CHLOR 0.9% PF (SALINE LOCK) 10ML VIAL/SYR IV SCH (22:45)
[2018-08-09] MEDS: POTASSIUM CHL 20MEQ/100ML 100 ML IV SCH (22:50)
[2018-08-09 22:59] LABS: Blast Cells 2; Lymphocytes % (manual) 66 (10.0-50.0); Monocytes % (manual) 14 (0-12); Reactive Lymphocytes 1
[2018-08-10] VITALS (50 sets, daily range): BP systolic 121–186; BP diastolic 51–110
[2018-08-10] MEDS: MEPERIDINE HCL (25 MG/ML) 1ML VIAL IV PRN ×5 (00:07→22:31)
[2018-08-10] MEDS: POTASSIUM CHL 20MEQ/100ML 100 ML IV SCH (01:36)
[2018-08-10] MEDS: IPRATROPIUM BROM 0.5 MG/2.5ML INH SOL NEB SCH ×7 (02:30→22:20)
[2018-08-10] MEDS: ACETYLCYSTEINE 10 %(100MG/ML) SOL 4ML NEB SCH ×7 (02:30→22:20)
[2018-08-10] MEDS: LEVALBUTEROL HCL 1.25 MG/3 ML NEB NEB SCH ×7 (02:42→22:31)
[2018-08-10] MEDS: ACETAMINOPHEN 325 MG TAB PO PRN ×3 (04:20→16:57)
[2018-08-10] MEDS: CEFTAROLINE 600 MG in SODIUM CHL 0.9% 250 ML IV SCH ×2 (06:00→18:37)
[2018-08-10] MEDS: SALINE 0.65 % NASAL SPRAY 45ML BOTTLE EACHNOSTRI SCH ×4 (06:00→21:41)
[2018-08-10 06:59] LABS: Hemoglobin 8.5 g/dL (13.5-17.5); Mean Corpuscular Hemoglobin 30.8 pg (28.0-32.0)
[2018-08-10 07:02] LABS: Hematocrit 24.6 % (41.0-53.0); Mean Corpuscular Hgb Conc. 34.5 g/dL (32.0-36.0); Mean Corpuscular Volume 89.3 fL (80.0-100.0); Platelet Count (auto) 34 10^3/uL (140-450); Red Blood Cells 2.76 10^6/uL (4.5-5.90); Red Cell Distribution Width 16.9 % (11.8-14.3)
[2018-08-10 07:20] LABS: Calcium 8.2 mg/dL (8.5-10.1); Potassium 4.1 mmol/L (3.5-5.1)
[2018-08-10 07:26] LABS: White Blood Cell 1.3 10^3/uL (4.4-10.8)
--- NOTE | 2018-08-10 07:30 | NUR ---
REPORT REPORT RECEIVED FROM NIGHT RNYUMIKO. PT APPEARS ASLEEP WITH RESPIRATIONS EVEN AND UNLABORED. PER REPORT, PT WAS AWAKE ALL NIGHT AND JUST FELL ASLEEP AT 0630. WILL LET HIM SLEEP FOR A WHILE. CONTINUE TO MONITOR.
--- NOTE | 2018-08-10 07:34 | NUR ---
Respiratory note: PATIENT IS RESTING COMFORTABLY. SPO2 95%, BS CLEAR T/O, RR 23, HR 100. PATIENT REFUSED TREATMENT. PATIENT ADVISED TO LET RN KNOW IF HE FEELS ANY SOB OR INCREASE WOB, AND RT WILL BE PAGED. RN MADE AWARE OF PATIENT REFUSAL OF TX.
[2018-08-10 07:35] LABS: Hemoglobin 5.2 g/dL (13.5-17.5)
[2018-08-10 07:36] LABS: White Blood Cell 0.9 10^3/uL (4.4-10.8)
[2018-08-10 07:46] LABS: Band Neutrophils % (manual) 0; Basophils % (manual) 0 (0.0-2.0); Metamyelocytes % 0; Myelocytes % 0; Promyelocytes % 0
--- NOTE | 2018-08-10 08:21 | NUR ---
Okay to Use PICC Line X-ray completed.
--- NOTE | 2018-08-10 08:30 | NUR ---
PT STILL RESTING QUIETLY WITH NO DISTRESS NOTED. CONTINUE TO MONITOR.
--- NOTE | 2018-08-10 09:11 | NUR ---
I called [facility] [phone] and spoke with Gabriel-faxed him requested pathology report from bone marrow biopsy-provided him with contact information for Dr. Ragsdale.
[2018-08-10] MEDS ORDERED: MICAFUNGIN SODIUM 100 MG in D5W 5% 100 ML IV ONE (10:00)
--- NOTE | 2018-08-10 10:20 | NUR ---
PT ASSESSED AND DENIES ANY PAIN OR SOB. LUNGS CLEAR THROUGHOUT. O2 SAT OF 92% WITH HI FLOW O2 AT90% AND 55L FLOW. PRODUCTIVE COUGH WITH YORK SPUTUM, THICK. ORAL TEMP OF 100.5. ADMINISTERING TYLENOL AND APPLYING ICE PACKS. CONTINUE TO MONITOR.
[2018-08-10] MEDS: LEVOFLOXACIN 750MG 150 ML IV SCH (10:42)
[2018-08-10] MEDS: cloNIDine HCL 0.1 MG TAB PO SCH ×2 (10:43→22:12)
[2018-08-10] MEDS: SODIUM CHLOR 0.9% PF (SALINE LOCK) 10ML VIAL/SYR IV SCH ×2 (10:43→21:41)
[2018-08-10] MEDS: SERTRALINE HCL 50 MG TAB PO SCH (10:43)
--- NOTE | 2018-08-10 10:50 | NUR ---
Respiratory note: PATIENT INITIALLY REFUSED MEDNEB TX. WHEN MY INITIAL ASSESSMENT WAS COMPLETE, THE PATIENT THEN ASKED TO BE GIVEN THE MEDNEB TX. NO ADVERSE REACTIONS WERE NOTED.
[2018-08-10] MEDS: Pro-Stat SF 30ml Vanilla PO SCH ×2 (11:00→18:49)
[2018-08-10] MEDS: Ensure Enlive Strawberry 8oz Bottle PO SCH ×3 (11:00→18:48)
[2018-08-10] MEDS: PROMETHAZINE HCL 25 MG/ML 1ML IV PRN (11:05)
[2018-08-10] MEDS ORDERED: SODIUM CHLORIDE 0.9% 1,000 ML IV SCH (12:15)
--- NOTE | 2018-08-10 12:20 | NUR ---
RESPIRATORY PT ON HI FLOW O2 WITH 90% FIO2 AND 55L FLOW. Addendum: 08/10/18 at 1314 by Padmini Hunter RN Amended: Links added.
[2018-08-10] MEDS ORDERED: FUROSEMIDE 20 MG/2 ML VIAL IV ONE (12:30)
--- NOTE | 2018-08-10 14:57 | NUR ---
I received a call from Lily at [facility] letting me know that they have an accepting physician for this patient-Dr. Ames-they are waiting for an ICU bed to become available-she said most likely it will not be until tomorrow-she did say that when patient is transferred that the pathology slides need to go with him-I called Pathology department and left message for Azucena. I faxed memorandum to [facility] as requested-I let nurse [place] know that there is an accepting MD and that we are waiting for a bed.
--- NOTE | 2018-08-10 15:18 | NUR ---
I received a message from Gabriel at [facility] [place] [phone] asking for the cytogenic report from bone marrow biopsy-I called Azucena in Pathology and left another message, also tried the other provided pathology extension [phone] answer and not able to leave a voice mail.
--- NOTE | 2018-08-10 15:25 | NUR ---
PT SIGNED ""PERMISSION TO RELEASE PROTECTED HEALTH INFORMATION TO [facility]" FORM. FAXED TO ILYA, HUMAN RESOURCES SUPPORT SPECIALIST, REQUESTED. LET PT KNOW THAT WE HAVE AN ACCEPTING MD AT [facility] AND WE ARE WAITING FOR AN AVAILABLE BED.
--- NOTE | 2018-08-10 15:53 | NUR ---
I called Azucena in Pathology again and left a second message letting her know that I need the cytogenic report from the bone marrow biopsy so I can fax it to [facility]-I also let her know that I need to get a set of the pathology slides for nurse to send with patient when [facility] has a bed for him.
--- NOTE | 2018-08-10 15:57 | NUR ---
I faxed the signed Release of Information form back to [facility] as requested.
[2018-08-10 16:19] LABS: Blast Cells 1; Eosinophils % (manual) 1 (0-7); Lymphocytes % (manual) 59 (10.0-50.0); Monocytes % (manual) 23 (0-12); Reactive Lymphocytes 5
--- NOTE | 2018-08-10 16:30 | NUR ---
Respiratory note: HI FLOW WATER CHANGED. WATER LEVEL IS ADEQUATE. PT IS COMFORTABLY SLEEPING WITH FAMILY AT BEDSIDE. NO SIGNS OR SYMPTOMS OF RESPIRATORY DISTRESS NOTED AT THIS TIME.
--- NOTE | 2018-08-10 16:45 | NUR ---
Respiratory note: PATIENT WAS RESTING COMFORTABLY. NO RESPIRATORY DISTRESS NOTED. PATIENT REFUSED MEDNEB TX. ADVISED PATIENT TO INFORM RN IF ANY SOB, OR WHEEZING. INFORMED RN OF REFUSAL OF TX.
--- NOTE | 2018-08-10 16:57 | NUR ---
TEMP OF 100.0 AND MEDICATED WITH TYLENOL 650MG PO AND ICE PACKS APPLIED.
--- NOTE | 2018-08-10 18:30 | NUR ---
REMAINS ON HI FLOW O2 WITH 90% FIO2 AND 55L FLOW. LUNGS REMAIN CLEAR WITH O2 SAT OF 91%. Addendum: 08/10/18 at 1903 by Padmini Hunter RN Amended: Links added.
--- NOTE | 2018-08-10 18:35 | NUR ---
PT REFUSED MED NEB TX AT THIS TIME. PT WAS INSTRUCTED TO PAGE RT IF HE CHANGED HIS MIND OR BECAME MORE SOB.
--- NOTE | 2018-08-10 18:35 | NUR ---
[facility] placed on will-call pending transfer to [facility] form faxed to [facility].
--- NOTE | 2018-08-10 18:37 | NUR ---
PT WITH C/O ABD PAIN 09/01 AFTER EATING PART OF A SUBWAY SANDWICH. MEDICATED WITH DEMEROL 25MG IV . TEMP NOW 99.5. CONTINUE TO MONITOR.
[2018-08-10] MEDS ORDERED: TPN PER PHARMACY 0 ML IV SCH (19:15)
--- NOTE | 2018-08-10 19:30 | NUR ---
REPORT REPORT GIVEN TO ALIYAH LUIS RN.
[2018-08-10] MEDS ORDERED: AMINO ACID INFUSION IN D10W 1,000 ML IV ONE (20:00)
--- NOTE | 2018-08-10 22:45 | NUR ---
PT WITH RR - 30'S SATS 80'S REFUSED RX TX. O2 100% . DISCUSSED INTUBATION WITH PT. HE SAID YES HE WANTED THAT IF WE HAVE TO.
[2018-08-11] VITALS (76 sets, daily range): BP systolic 84–224; BP diastolic 41–119
[2018-08-11] MEDS ORDERED: DEXTROSE (50%) 50ML SYRG IV SCH
[2018-08-11] MEDS: cloNIDine HCL 0.1 MG TAB PO SCH ×2 (01:09→05:19)
[2018-08-11] MEDS: ACETYLCYSTEINE 10 %(100MG/ML) SOL 4ML NEB SCH ×6 (02:00→22:23)
[2018-08-11] MEDS: IPRATROPIUM BROM 0.5 MG/2.5ML INH SOL NEB SCH ×6 (02:00→22:23)
[2018-08-11] MEDS: LEVALBUTEROL HCL 1.25 MG/3 ML NEB NEB SCH ×6 (02:51→22:23)
[2018-08-11 03:38] LABS: Hemoglobin 8.1 g/dL (13.5-17.5); Mean Corpuscular Volume 89.9 fL (80.0-100.0)
[2018-08-11 03:40] LABS: Hematocrit 23.3 % (41.0-53.0); Mean Corpuscular Hemoglobin 31.3 pg (28.0-32.0); Mean Corpuscular Hgb Conc. 34.8 g/dL (32.0-36.0); Platelet Count (auto) 30 10^3/uL (140-450); Red Cell Distribution Width 16.8 % (11.8-14.3)
[2018-08-11 03:47] LABS: White Blood Cell 1.5 10^3/uL (4.4-10.8)
[2018-08-11 03:49] LABS: Band Neutrophils % (manual) 0; Basophils % (manual) 0 (0.0-2.0); Eosinophils % (manual) 0 (0-7); Metamyelocytes % 0; Myelocytes % 0; Promyelocytes % 0; Reactive Lymphocytes 0
[2018-08-11 04:10] LABS: Pre Albumin 3.1 mg/dL (20.0-40.0)
[2018-08-11 04:14] LABS: Albumin 1.2 g/dL (3.4-5.0); Calcium 8.3 mg/dL (8.5-10.1); Magnesium 2.3 mg/dL (1.6-2.6); Phosphorus 3.8 mg/dL (2.5-4.90); Potassium 3.9 mmol/L (3.5-5.1)
[2018-08-11 04:17] LABS: Bilirubin, Total 1.5 mg/dL (0.2-1.0); Total Protein 7.6 g/dL (6.4-8.2)
--- NOTE | 2018-08-11 05:00 | NUR ---
OFFERED PT TO WASH UP AND I WOULD HELP HIM IF HE NEEDED IT. HE SAID NO , HE JUST WANTED TO REST. HE DID EAT HIS CHOCOLATE BROWNIE AND DRANK A CUP 2% MILK .
[2018-08-11] MEDS: MEPERIDINE HCL (25 MG/ML) 1ML VIAL IV PRN ×2 (05:13→08:55)
[2018-08-11] MEDS: SALINE 0.65 % NASAL SPRAY 45ML BOTTLE EACHNOSTRI SCH ×2 (05:48→12:25)
[2018-08-11] MEDS: CEFTAROLINE 600 MG in SODIUM CHL 0.9% 250 ML IV SCH ×2 (05:50→17:57)
[2018-08-11] MEDS: InsuLIN REG 1unit/0.01ml Soln (100units/ml) SC SCH ×4 (05:59→17:57)
[2018-08-11] MEDS: ACCU-CHEK COMFORT CURVE STRIP VI SCH ×4 (06:00→17:57)
[2018-08-11 07:13] LABS: Lymphocytes % (manual) 62 (10.0-50.0)
[2018-08-11 07:14] LABS: Blast Cells 2; Monocytes % (manual) 28 (0-12)
--- NOTE | 2018-08-11 07:40 | NUR ---
ASSESSMENT PT RESTING IN BED WITH EYES CLOSED AND NO DISTRESS NOTED. PT ON HI FLOW O2 AT 100% FIO2 AND A FLOW OF 65L. LUNGS CLEAR AND DIMINISHED THROUGHOUT. LAID PT DOWN BRIEFLY TO CHANGE LINENS AND O2 SAT DOWN TO 85% AND TOOK 2-3 MINUTES FOR SAT TO RETURN TO MID 90'S. TELE ST 122 WITH INVERTED T WAVE IN LEADS II AND V, AND ELEVATED ST IN LEAD V. PALPABLE PULSES TO ALL EXTREMITIES WITH NO EDEMA NOTED. ABD SOFT WITH + BOWEL SOUNDS. USED BEDPAN BUT WAS UNABLE TO HAVE A BM. WANTED TO GET OOB TO [place] [facility] [place], BUT TOLD HIM HE WAS N TOO MUCH OXYGEN TO DO THAT. LAY CATHETER DRAINING DARK YELLOW URINE. SKIN IS INTACT. ASKING FOR DEMEROL, BUT NOT YET DUE.
[2018-08-11] MEDS: Pro-Stat SF 30ml Vanilla PO SCH ×2 (08:00→17:59)
[2018-08-11] MEDS: ACETAMINOPHEN 325 MG TAB PO PRN (08:04)
--- NOTE | 2018-08-11 08:04 | NUR ---
MEDICATED WITH TYLENOL 650 MG PO FOR ORAL TEMP OF 102.2 . ICE PACKS APPLIED. WILL BRING IN DEMEROL FOR SHIVERING WHEN AVAILABLE.
[2018-08-11] MEDS: Ensure Enlive Strawberry 8oz Bottle PO SCH ×2 (08:30→12:18)
--- NOTE | 2018-08-11 08:30 | NUR ---
I spoke with Azucena in Pathology (extension [phone]), she has the slides ready as well as the final cytogenic report, she will bring them down to ICU once I call her with the bed assignment at [facility].
--- NOTE | 2018-08-11 08:50 | NUR ---
SHIVERING MEDICATED WITH DEMEROL 25 MG IV FOR SHIVERING . JUST DRANK COLD WATER SO AXILLARY TEMP DONE AND 98.9 . CONTINUE TO MONITOR.
--- NOTE | 2018-08-11 09:56 | NUR ---
RESPIRATORY/MD PAGED AND SPOKE WITH DR BAKER REGARDING 100% FIO2 WITH 65 L FLOW AND RR 28-34 WITH O2 SAT 92% AND ORAL TEMP AT 0750 OF 102.2 . ALSO MADE AWARE OF AM LABS. ORDERS FOR LASIX 40 MG IV X1.WILL COME DOWN TO EVALUATE FOR POSSIBLE INTUBATION.
[2018-08-11] MEDS ORDERED: FUROSEMIDE 40 MG/4 ML VIAL IV ONE (10:00)
[2018-08-11] MEDS ORDERED: FUROSEMIDE 40 MG/4 ML VIAL ONE (10:11)
[2018-08-11] MEDS: SODIUM CHLOR 0.9% PF (SALINE LOCK) 10ML VIAL/SYR IV SCH ×2 (10:36→22:09)
[2018-08-11] MEDS: LEVOFLOXACIN 750MG 150 ML IV SCH (10:36)
[2018-08-11] MEDS: SERTRALINE HCL 50 MG TAB PO SCH (10:37)
--- NOTE | 2018-08-11 11:40 | NUR ---
CASE MGMT/TRANSFER NOTIFIED BY SILVIA CARABALLO MGR, THAT [facility] HAS A BED FOR THIS PT. UNSURE IF DR BAKER IS GOIG TO INTUBATE OR NOT AND IF HE WANTS AIR OR GROUND TRANSPORTATION. MARTIR RANDALL.
--- NOTE | 2018-08-11 11:45 | NUR ---
I received a call from Ban at [facility] letting me know that they have a bed for this patient-he will be going to [facility] ICU room 3229, nurse to call report to [phone]. I called Pathology and requested that they bring the slides and final pathology report to ICU. I spoke with nurse Washington to let her know that they have a bed-she is going to call Dr. Ragsdale to ask if patient needs air transport instead of ambulance, awaiting return call from Padmini.
--- NOTE | 2018-08-11 11:45 | NUR ---
SPOKE WITH DR OLIVIA ABAD MADE AWARE THAT PT HAS A BED AT [facility]. HE WILL COME DOWN TO EVALUATE TO SEE IF PT NEEDS TO BE INTUBATED AND ALSO GROUND OR AIR TRANSPORT. PT MADE AWARE OF PENDING TRANSFER.
[2018-08-11] MEDS ORDERED: BUMETANIDE INJECTION 10 ML ONE (12:03)
--- NOTE | 2018-08-11 12:12 | NUR ---
I called [facility] and spoke with Peña regarding patient's oxygen requirements-he said they can do Bi-pap or non-rebreather mask. I called [facility] and spoke with Hanna and was told the same-they can do Bi-pap or [id number] relayed this information to Nurse Washington in ICU-she will speak with Dr. Ragsdale and give me a call back to let me know if he wants ground or Air transport.
[2018-08-11] MEDS ORDERED: BUMETANIDE 1mg/4ml VIAL (0.25mg/ml) IV SCH ×2 (12:15→18:00)
[2018-08-11] MEDS: MICAFUNGIN SODIUM 100 MG in SODIUM CHL 0.9% 100 ML IV SCH (12:25)
[2018-08-11] MEDS ORDERED: ACETAMINOPHEN 325 MG TAB PO PRN (12:30)
--- NOTE | 2018-08-11 12:47 | NUR ---
I spoke with nurse Washington, she said Dr. Ragsdale is to come back and re-assess the patient (s/p lasix and bumex administration)-he will decide if the patient needs to be intubated, and he will let Padmini know if patient needs air transport or ground transport. I called [facility] [phone] to give them an update on the status of the patient. Nurse Washington to give me a call back.
--- NOTE | 2018-08-11 14:08 | NUR ---
RESPIRATORY PT STARTED ON BIPAP AT 12/5 WITH A BACK UP RATE OF 12 AND 100% FIO2, BY RT GARRICK, PER ORDER OF DR BAKER.
--- NOTE | 2018-08-11 14:19 | NUR ---
I received a call from [facility] [phone] (spoke with Gabriel)-he asked that Dr. Ragsdale give their ICU doctor a call for an update on the status of the patient. I called Dr. Ragsdale and provided him with the name/number of the ICU physician at [facility]-Dr. Ban aNth [phone]. I spoke with nurse Misa betancourt for nurse Padmini, she said they are doing a Bi-pap trial for the patient to see how he tolerates it-she will have Padmini give me a call back.
[2018-08-11] MEDS ORDERED: ETOMIDATE (2MG/ML) 20ML VIAL IV ONE (14:55)
[2018-08-11] MEDS ORDERED: SUCCINYLCHOLINE CHLORIDE 20 MG/ML 10ML VIAL IV ONE (14:55)
[2018-08-11] MEDS ORDERED: PROPOFOL 100 ML IV ONE (14:56)
--- NOTE | 2018-08-11 14:59 | NUR ---
Nutrition Follow-up Notes Wt.: 103.8 kg Pt's in isolation room, on oxygen via nasal cannula, asleep, no signs of distress, currently on 2 gms Na, neutropenic diet with Ensure Enlive 1 carton TID and Prostat 1 pkt BID, with inadequate PO of < 50% x 5 per RN doc. pt also initiated on PN support with Clinimix @ 42 ml/hr providing 510 kcals and 42.5 gm proteins from last night. pt with inadequate PN support as it meets 21-23% kcals and 45-56% proteins. Est. Needs ABW [id number] kcal (23-25 kcal/kgBW), 75-93 gms pro (0.8-1.0 gms/kgBW r/t elev RFT). Will continue to monitor pertinent labs and reassess nutrient need prn Labs: CA 8.3 L, BUN 28 H, CREAT 1.47 H, LAN 1.5 H, ALB 1.2 L, PREALB 3.1 L TG wnl Skin: Jeremiah scale 16, mod risk, skin intact per utility bill complaints investigator. GI: Pt had 1 BM on 08/07 per utility bill complaints investigator. PES: Altered nutrition related lab values r/t current/chronic medical condition aeb elev RFT hyperbil, elev LFTs Obesity r/t food intake more than body requirement aeb 143% IBW, BMI 34.6 kg/m2 and increased body adiposity Will continue to monitor PO intake, PN tolerance, skin status, pertinent labs and weight trend. F/u in 2-3 days. Rec.: 1.) Advance PN support to meet > 75% of needs if pt continues to have inadequate PO. 2) Continue close supervision during meals. 2.) Refer pt to RD for further nutrition education and weight monitoring upon discharge. 3.) Continue current plan of care.
--- NOTE | 2018-08-11 15:07 | NUR ---
INTUBATION AT APPROX 1507, PT WAS INTUBATED BY DR BAKER AFTER PT WAS MEDICATED WITH ETOMIDATE 30 MG IVP. INTUBATED WITH AN 8 FR ETT/ 23 AT THE [facility]. BEING MANUALLY VENTILATED BY RT. GARRICK
--- NOTE | 2018-08-11 15:08 | NUR ---
I spoke with Dr. Ragsdale regarding the plan of care for this patient-he did speak with the ICU physician at [facility]-patient will be intubated here and sent to [facility] in the morning. I called [facility] transfer center and spoke with Gabriel to let him know, he said to call him in the morning for a bed assignment.
[2018-08-11] MEDS: PROPOFOL 100 ML IV SCH (15:12)
[2018-08-11] MEDS ORDERED: fentaNYL Drip 2500mCg/250mlNS 250 ML IV SCH (15:12)
[2018-08-11] MEDS: MIDAZOLAM DRIP 50 mg/50mL 50 ML IV SCH (15:15)
--- NOTE | 2018-08-11 15:15 | NUR ---
ON VENTILATOR AND AND WITH VS: 158-33-93% AND 221/114. DIPRIVAN TO 15.
[2018-08-11] MEDS ORDERED: fentaNYL Drip 2500mCg/250mlNS 250 ML IV ONE (15:17)
--- NOTE | 2018-08-11 15:20 | NUR ---
156-30-90 % AND 228/114. STARTED FENTANYL AT 100 MCG/HR.
[2018-08-11] MEDS ORDERED: MIDAZOLAM DRIP 50 mg/50mL 50 ML IV ONE (15:21)
--- NOTE | 2018-08-11 15:28 | NUR ---
147-39-89% 153/89. VERSED INCREASED TO 10MG/HR
--- NOTE | 2018-08-11 15:34 | NUR ---
145-36-88% AND 157/97. TRYING TO CALM PT AND HE IS NODDING HIS HEAD YES. INCREASED VERSED TO 15 MG/HR. CONTINUE TO MONITOR,
[2018-08-11] MEDS: NOREPINEPHRINE 8 MG/250ML KIT 250 ML IV SCH (16:15)
--- NOTE | 2018-08-11 16:30 | NUR ---
I called [facility] to let them know patient is intubated, they have him on will-call pending transfer to [facility]-they can not set a leaf size picker time without an actual bed assignment. Re-faxed medi-nai form to [facility].
[2018-08-11] MEDS ORDERED: SODIUM CHLORIDE 0.9% 250 ML IV ONE ×2 (17:30→18:30)
[2018-08-11] MEDS: fentaNYL Drip 2500mCg/250mlNS 250 ML IV SCH (17:30)
--- NOTE | 2018-08-11 17:38 | NUR ---
ICE PACKS TO PT FOR TEMP 98.3 ORALLY BUT VERY DIAPHORETIC. BP OF 84/53. STRTED ORDERED 250ML NS BOLUS AND DECREASED DIPRIVAN TO 40 MCG. CONTINUE TO MONITOR.
--- NOTE | 2018-08-11 17:47 | NUR ---
STARTED NEW IV #20 TO THE PT'S RIGHT HAND.
--- NOTE | 2018-08-11 18:30 | NUR ---
Respiratory note: RECEIVED PT ON VENT V8 WITH SETTINGS MENTIONED ABOVE. CHANGES MADE AT THIS TIME PER JESSICA MARQUEZ TO FOLLOW. VENT PLUGGED INTO RED OUTLET, ALARMS ON AND AUDIBLE. AMBU BAG AND MASK AT BEDSIDE. PT INTUBATED WITH 8.0 ETT SECURED WITH MELLISA AT 23CM, ETT MOVED FROM RIGHT TO LEFT POSITION, NO LIP BREAKDOWN NOTED. BS CLEAR/DIMINISHED, SUCTIONED SCANT [place] SECRETIONS. NO GAG REFLEX NOTED. SKIN WARM AND DRY TO TOUCH, NO EDEMA NOTED ON EXTREMITIES. RN AND FAMILY AT BEDSIDE. MED NEB TX GIVEN IN LINE ON VENTILATOR, NO ADVERSE REACTIONS NOTED. CPT DONE ON BED, TOLERATED WELL. PT ON CONT BEDSIDE MONITORING, WILL CONTINUE TO MONITOR ORDERED.
--- NOTE | 2018-08-11 19:15 | NUR ---
BEATRIZ MESSER NP, REGARDING ABG RESULTS.
--- NOTE | 2018-08-11 19:30 | NUR ---
REPORT REPORT GIVEN TO NIGHT RNALIYAH AND INTO THE BEDSIDE TO CHECK ON PT AND INTRODUCED HIM TO THE PT'S SISTER.
--- NOTE | 2018-08-11 19:38 | NUR ---
CRISTINE SPOKE WITH AMIRA AT [facility] AND ARRANGED FOR CRITICAL CARE TRANSPORT WITH PICKUP TIME AT 0700 TOMORROW MORNING.
[2018-08-11] MEDS ORDERED: TPN PER PHARMACY IV NR ×7 (20:00)
--- NOTE | 2018-08-11 20:28 | NUR ---
CHANGES MADE TO VENT AT THIS TIME PER ENGINE RESEARCH ENGINEER MARLIN MESSER'S ORDER, ABG TO FOLLOW. RR 22 VT 600 PEEP 8. WILL CONTINUE TO MONITOR ORDERED.
[2018-08-11] MEDS: FAMOTIDINE (10MG/ML) 2ML VL IV SCH (23:28)
[2018-08-12] VITALS (99 sets, daily range): BP systolic 71–196; BP diastolic 37–99
[2018-08-12] MEDS: IPRATROPIUM BROM 0.5 MG/2.5ML INH SOL NEB SCH ×6 (02:07→22:27)
[2018-08-12] MEDS: ACETYLCYSTEINE 10 %(100MG/ML) SOL 4ML NEB SCH ×2 (02:08→06:15)
[2018-08-12] MEDS: LEVALBUTEROL HCL 1.25 MG/3 ML NEB NEB SCH ×6 (02:08→22:28)
[2018-08-12 04:07] LABS: Hemoglobin 8.5 g/dL (13.5-17.5); Platelet Count (auto) 26 10^3/uL (140-450)
[2018-08-12 04:10] LABS: Hematocrit 25.1 % (41.0-53.0); Mean Corpuscular Hemoglobin 31.3 pg (28.0-32.0); Mean Corpuscular Volume 92.1 fL (80.0-100.0); Red Blood Cells 2.72 10^6/uL (4.5-5.90); Red Cell Distribution Width 16.6 % (11.8-14.3); White Blood Cell 3.1 10^3/uL (4.4-10.8)
[2018-08-12 04:20] LABS: Albumin 1.1 g/dL (3.4-5.0); Calcium 8.6 mg/dL (8.5-10.1)
[2018-08-12 04:26] LABS: Bilirubin, Total 1.1 mg/dL (0.2-1.0); Total Protein 7.9 g/dL (6.4-8.2)
[2018-08-12 04:36] LABS: BUN/Creatinine Ratio 22.6
[2018-08-12 04:41] LABS: Band Neutrophils % (manual) 0; Basophils % (manual) 0 (0.0-2.0); Eosinophils % (manual) 0 (0-7); Metamyelocytes % 0; Myelocytes % 0; Promyelocytes % 0; Reactive Lymphocytes 0
[2018-08-12] MEDS: ATRACURIUM BESYLATE 1,000 MG in D5W 5% 150 ML IV SCH ×2 (05:00→21:04)
[2018-08-12 05:05] LABS: Magnesium 2.3 mg/dL (1.6-2.6); Phosphorus 5.5 mg/dL (2.5-4.90)
[2018-08-12] MEDS: InsuLIN REG 1unit/0.01ml Soln (100units/ml) SC SCH ×5 (06:00→23:44)
[2018-08-12] MEDS: CEFTAROLINE 600 MG in SODIUM CHL 0.9% 250 ML IV SCH ×2 (06:10→17:37)
[2018-08-12] MEDS: ACCU-CHEK COMFORT CURVE STRIP VI SCH ×5 (06:11→23:44)
[2018-08-12 06:42] LABS: Lymphocytes % (manual) 47 (10.0-50.0); Monocytes % (manual) 48 (0-12)
[2018-08-12 06:43] LABS: Blast Cells 4
--- NOTE | 2018-08-12 08:04 | NUR ---
I called [facility] [phone] and spoke with Flor in Admitting, she said I need to call back at 830am to speak with the transfer table operator Gabriel regarding bed assignment. I called Nurse Arnel and made her aware.
--- NOTE | 2018-08-12 08:14 | NUR ---
I called [facility] and placed them on will-call pending transfer to [facility].
--- NOTE | 2018-08-12 08:14 | NUR ---
Respiratory note: PAGED TO REPORT CRITICAL ABG RESULTS.
[2018-08-12] MEDS: fentaNYL Drip 2500mCg/250mlNS 250 ML IV SCH ×2 (08:30→22:48)
[2018-08-12] MEDS: Pro-Stat SF 30ml Vanilla PO SCH ×2 (08:40→18:20)
--- NOTE | 2018-08-12 08:45 | NUR ---
I called [facility] transfer [place] [phone] and spoke with Gabriel, he said they do not have an ICU bed at this time-he also said that our MD here needs to connect with Dr. Ban Nath [phone] to discuss the plan of care for this patient. Addendum: 08/12/18 at 0849 by Pham Ellis [facility] I called typesetting machine operator/tender to iwona Ragsdale, he is not in yet.
--- NOTE | 2018-08-12 08:50 | NUR ---
Respiratory note: CRITICAL ABG GIVEN VERBAL TO . VENT CHANGES TO BE MADE SOON HE SEES PATIENT.
--- NOTE | 2018-08-12 09:07 | NUR ---
Respiratory note: VENT CHANGES PER POST AM ABG RESULTS. RR 26, VT 550, PEEP OF 10. ABG TO FOLLOW IN 2 HOURS.
[2018-08-12] MEDS ORDERED: ACETAMINOPHEN 650 mg PER 20 mL UD ONE (09:09)
--- NOTE | 2018-08-12 09:09 | NUR ---
I placed a page out to Dr. Ragsdale to discuss the plan of care for this patient-awaiting return call.
[2018-08-12] MEDS: NOREPINEPHRINE 8 MG/250ML KIT 250 ML IV SCH (09:15)
--- NOTE | 2018-08-12 09:16 | NUR ---
I spoke with Dr. Ragsdale to discuss the plan of care for this patient-I let him know that [facility] asked him to call their ICU physician Dr. Ban Nath [phone] to give her an update on the status of this patient-and that they do not have an ICU bed available at this time.
--- NOTE | 2018-08-12 09:59 | NUR ---
I called [facility] and spoke with Gabriel at the transfer center, he said their doctor is connecting with Dr. Ragsdale right now and he will give me a call back.
[2018-08-12] MEDS: SODIUM CHLOR 0.9% PF (SALINE LOCK) 10ML VIAL/SYR IV SCH ×2 (10:00→21:41)
[2018-08-12] MEDS: MIDAZOLAM DRIP 50 mg/50mL 50 ML IV SCH ×4 (10:04→23:45)
[2018-08-12] MEDS: LEVOFLOXACIN 750MG 150 ML IV SCH (10:07)
[2018-08-12] MEDS: FAMOTIDINE (10MG/ML) 2ML VL IV SCH ×2 (10:20→21:41)
[2018-08-12] MEDS ORDERED: ACETAMINOPHEN 650 mg PER 20 mL UD PO PRN (10:45)
[2018-08-12] MEDS: SODIUM BICARBONATE 50ML VIAL 50 ML in SOD CHL 0.45% 1,000 ML IV SCH (11:00)
--- NOTE | 2018-08-12 11:58 | NUR ---
I spoke with Dr. Ragsdale regarding the plan of care for this patient-[facility] told him they are not accepting patient at this time (their oncologist to call Dr. Pearl to discuss possible treatment options). I asked Dr. Ragsdale if he wanted me to reach out to other facilities at this time and he said no-patient too unstable today-I will follow up tomorrow regarding possible need for transfer.
[2018-08-12] MEDS: MICAFUNGIN SODIUM 100 MG in SODIUM CHL 0.9% 100 ML IV SCH (12:00)
--- NOTE | 2018-08-12 12:08 | NUR ---
I received a call from Ban at the [facility] transfer center letting me know that they are not accepting the patient at this time.
--- NOTE | 2018-08-12 13:10 | NUR ---
VENT. CHANGES MADE,PER DR. BAKER'S DR. Jordana AT BEDSIDE AT THIS TIME. MODE CHANGED TO PCV, RATE 26, PIP 18,PEEP 12,I-TIME 0.90,FI02 100%. ABG TO BE OBTAINED IN ONE HOUR.
--- NOTE | 2018-08-12 13:26 | NUR ---
Resumed care at 0700. Ongoing assessments being done and orders reviewed. Being treated for multiple problems and required intubation yesterday. Upon arrival Atracurium Besylate infusion running at 10mcg/kg/min. Per cage shift manager RNDelroy, respirations needed to be controlled and a neuromuscular blockade initiated. Initial TOF (1:4) at 0730. Absent gag and unresponsive. Checked TOF at 1020 (0:4) drip turned off and rechecked at 1055, still (0:4). Dr. Jauregui rounded at 0900. Reviewed data, medications and plan of care. New orders reviewed, changes made to ventilator due to abnormal ABG. Misa FERNANDEZ made changes per order and 2nd ABG of the day was drawn at 11:14, results forward to Dr. Jauregui by Misa FERNANDEZ, Pco2 remains abnormal 78.2. Per Dr. Jauregui discontinue neuromuscular blockade, has been off since 1020. Diprivan also weaned down as appropriate. Sasha RT at bedside with Dr. Jauregui making further changes to ventilator. Remains on Levophed gtt for hemodynamic stability, titrating as appropriate increased to 20mcg/min. Per Dr. Jauregui initiated a normal saline bolus of 250 ml. Upon arrival body very hot and rectal temperature probe inserted, measured 102.7. Cooling measures initiated. Cooling blanket applied, ice packs applied and Tylenol given. Temperature now 97.4. Cooling measures have been on hold since [address] Jauregui spoke with sister Ania Bernal and brother Palomo. Discussed condition and plan of care, all questions answered. Made them aware that he is very critical and that his children should be notified. Palomo stated that he would call his daughter Abraham Bernal. Dr. Ahumada in unit and is speaking with daughter Abraham bernal on phone.
--- NOTE | 2018-08-12 13:31 | NUR ---
I was in ICU at the nurse's station with Dr. Ragsdale and several of patient's family members-Dr. Ragsdale explained the plan of care for this patient and why he is not stable for transfer at this time. I had also spoke with patient's brother Palomo earlier and answered his questions about the plan of care. I provided patient's [id number] with my contact information and told her that they can call me with any questions or concerns.
[2018-08-12] MEDS ORDERED: BACTRIM 5MG/KG Q8HR PER RX 0 ML IV SCH (14:15)
[2018-08-12] MEDS: PROPOFOL 100 ML IV SCH ×2 (14:30→18:15)
[2018-08-12] MEDS ORDERED: methylPREDNISolone SOD SUCC 125 MG/2 ML VL IV ONE (14:45)
[2018-08-12] MEDS: SULFAMETH-TRIMETH 80/16MG-ML 25 ML in D5W 5% 500 ML IV SCH ×2 (16:00→22:47)
[2018-08-12] MEDS ORDERED: VASOPRESSIN 50 UNITS in D5W 5% 247.5 ML IV SCH (16:15)
[2018-08-12] MEDS: SODIUM CHL 0.9% IV SCH (16:21)
[2018-08-12] MEDS: [UNRECOGNIZED DRUG - OTHER] IV SCH (16:21)
[2018-08-12] MEDS: NOREPINEPHRINE BITARTRATE 32 MG in D5W 5% 218 ML IV SCH (17:00)
[2018-08-12] MEDS: ALBUMIN 25% 100 ML IV SCH (17:02)
[2018-08-12] MEDS: VASOPRESSIN 50 UNITS in D5W 5% 247.5 ML IV SCH (17:20)
--- NOTE | 2018-08-12 18:40 | NUR ---
Dr. Jauregui in unit from 1430 to 1600 at bedside and inserted a TLC to left SCV without incident. Chest xray done and okay to use per Dr. Jauregui. Attempted to place a Arterial line to right radial, but unsuccessful , two attempts done. Placed a arterial line to right femoral artery with some difficultly. Unable to thread arterial catheter and had to use the dilator as a catheter, good wave form. Sutured in placed. Remains on Levophed, max dose and had to start vasopressin for hemodynamic stability.
--- NOTE | 2018-08-12 19:26 | NUR ---
Dr. Jauregui consulted with Dr. Ahumada and both agreed to start chemotherapy. First dose of Decitabine initiated at 1621. Followed chemotherapy administration policy. Dr. Ahumada also ordered Venetoclax. Per pharmacy, spoke with Albertonjlukasz, not available. Dr. Jauregui aware, he contacted MD at [facility] and they recommenced not to initiate Venetoclax. Contacted Dr. Galicia at 1849 and forward him ABG results from 1830. Discussed data and reviewed medications. Per Dr. Jauregui, wean down Fio2 if appropriate and also wean down vasopressors as tolerated.
[2018-08-12] MEDS ORDERED: TPN PER PHARMACY IV NR ×7 (20:00)
--- NOTE | 2018-08-12 20:00 | NUR ---
OPENING NOTE: INTUBATED AND SEDATED. UNRESPONSIVE. PUPILS 2 AND FIXED OR EXTREMELY SLUGGISH. EXTREMELY DIAPHORETIC, TEMP 98.7F ORALLY, AND AXILLARY, BG 89. SINUS TACH, HR 110s. REINALDO PRESSURES 140s, NON-INVASIVE BP 120s. 8.0 ETT 23 AT THE LIP. EVEN AND UNLABORED BREATHING. LS CLEAR TO COARSE DIMINISHED TO BASES, MINIMAL ORAL SECRETIONS. SpO2>95% ON CURRENT VENT SETTINGS. ABD DISTENDED, BUT SOFT. HYPOACTIVE BS. UNKNOWN LBM. OGT + AIR BOLUS, PLACED TO LIS, DARK BILIOUS OUTPUT. LAY PATENT AND INTACT, DRAINING CLOUDY ALISIA URINE. SEE SKIN AND WOUND FLOWSHEET FOR ASSESSMENT. RIGH FEMORAL A LINE WITH DILATOR IN PLACE, PATENT WITH BLOOD RETURN. RIGHT HAND 20 G PIV, CDI, PATENT WITH BLOOD RETURN. LEFT IJ TLC, CDI, PATENT WITH BLOOD RETURN. RIGHT UPPER ARM PICC, CDI, PATENT WITH BLOOD RETURN, EXCEPT FOR JACOBS PORT WHICH IS OCCLUDED. REINFORCED POC. MAINTAINED PATIENT SAFETY: BED LOCKED AND IN THE LOWEST POSITION, FREQUENT VISUAL CHECKS. NO FAMILY PRESENT AT THIS TIME. WILL CONT
--- NOTE | 2018-08-12 20:30 | NUR ---
FAMILY AT BEDSIDE
--- NOTE | 2018-08-12 20:30 | NUR ---
CONFIRMED FULL CODE STATUS WITH DAUGHTERFARIDA
[2018-08-12] MEDS: methylPREDNISolone SOD SUCC 125 MG/2 ML VL IV SCH (21:41)
[2018-08-13] VITALS (109 sets, daily range): BP systolic 87–143; BP diastolic 45–112
--- NOTE | 2018-08-13 | NUR ---
ROUNDED: REMAINS UNRESPONSIVE. DOES APPEAR TO HAVE MORE EYE FLUTTERING THAN PREVIOUSLY. VSS AT THIS TIME.
--- NOTE | 2018-08-13 00:46 | NUR ---
ASKED RT LEANDRA TO CHANGE MELLISA: CLEANSED SKIN WITH ALCOHOL SWAB AND TINCTURE OF IODINE. NEW MELLISA APPLIED BY LEANDRA FERNANDEZ
[2018-08-13] MEDS: LEVALBUTEROL HCL 1.25 MG/3 ML NEB NEB SCH ×6 (02:29→22:39)
[2018-08-13] MEDS: IPRATROPIUM BROM 0.5 MG/2.5ML INH SOL NEB SCH ×6 (02:29→22:40)
[2018-08-13] MEDS: PROPOFOL 100 ML IV SCH (02:45)
--- NOTE | 2018-08-13 02:45 | NUR ---
LEFT IJ CVC DRESSING CHANGED VIA STERILE TECHNIQUE: NOTED BLEEDING FROM INSERTION SITE. CLEANSED VIA STERILE TECHNIQUE. APPLIED SURGICELL. COVERED WITH TEGADERM.
--- NOTE | 2018-08-13 03:00 | NUR ---
BED BATH WITH CHG WIPES, LISA CARE, LAY CARE, ORAL CARE, HAIR CARE, AND FULL LINEN CHANGE COMPLETED
[2018-08-13] MEDS: ALBUMIN 25% 100 ML IV SCH ×2 (04:04→16:10)
--- NOTE | 2018-08-13 04:05 | NUR ---
A-LINE EXTREMELY POSITIONAL - RETAPED
[2018-08-13 04:06] LABS: Mean Corpuscular Hgb Conc. 33.3 g/dL (32.0-36.0)
[2018-08-13 04:09] LABS: Hematocrit 20.9 % (41.0-53.0); Mean Corpuscular Hemoglobin 31.5 pg (28.0-32.0); Mean Corpuscular Volume 94.5 fL (80.0-100.0); Red Blood Cells 2.21 10^6/uL (4.5-5.90); Red Cell Distribution Width 17.6 % (11.8-14.3)
[2018-08-13 04:23] LABS: INR 1.06 (0.9-1.15); Partial Thromboplastin Time 31.5 sec (23.64-32.05)
[2018-08-13 04:35] LABS: Potassium 5.3 mmol/L (3.5-5.1)
[2018-08-13 04:40] LABS: Albumin 1.2 g/dL (3.4-5.0); BUN/Creatinine Ratio 15.9; Calcium 7.4 mg/dL (8.5-10.1); Total Protein 7.5 g/dL (6.4-8.2)
[2018-08-13 04:42] LABS: Bilirubin, Total 1.4 mg/dL (0.2-1.0)
[2018-08-13 04:52] LABS: Hemoglobin 6.9 g/dL (13.5-17.5); Platelet Count (auto) 19 10^3/uL (140-450)
[2018-08-13 04:53] LABS: Basophils % (manual) 0 (0.0-2.0); Eosinophils % (manual) 0 (0-7); Metamyelocytes % 0; Myelocytes % 0; Promyelocytes % 0
[2018-08-13 04:58] LABS: Magnesium 2.3 mg/dL (1.6-2.6)
[2018-08-13 05:07] LABS: Phosphorus 8.3 mg/dL (2.5-4.90)
--- NOTE | 2018-08-13 05:09 | NUR ---
PAGED MIX CHEMIST HOSPITALIST RE: HGB LEVEL
--- NOTE | 2018-08-13 05:24 | NUR ---
NOTIFIED CHLOE DICKINSON, OF HGB: ORDERS FOR 1 UNIT PRBC. ORDERS READBACK AND VERIFIED
--- NOTE | 2018-08-13 05:27 | NUR ---
NOTIFIED LAB OF NEED FOR STAT TYPE AND SCREEN
[2018-08-13] MEDS: CEFTAROLINE 600 MG in SODIUM CHL 0.9% 250 ML IV SCH ×2 (05:32→17:43)
[2018-08-13] MEDS: methylPREDNISolone SOD SUCC 125 MG/2 ML VL IV SCH ×3 (05:32→22:00)
[2018-08-13] MEDS: InsuLIN REG 1unit/0.01ml Soln (100units/ml) SC SCH ×3 (05:33→18:00)
[2018-08-13] MEDS: ACCU-CHEK COMFORT CURVE STRIP VI SCH ×3 (05:33→17:45)
[2018-08-13] MEDS: SODIUM BICARBONATE 50ML VIAL 50 ML in SOD CHL 0.45% 1,000 ML IV SCH (06:15)
--- NOTE | 2018-08-13 06:18 | NUR ---
INQUIRED WITH LAB FOR NEED FOR TYPE AND SCREEN
[2018-08-13] MEDS: SULFAMETH-TRIMETH 80/16MG-ML 25 ML in D5W 5% 500 ML IV SCH ×3 (06:31→23:14)
--- NOTE | 2018-08-13 06:39 | NUR ---
CLOSING NOTE: INTUBATED AND SEDATED. REMAINS UNRESPONSIVE. VSS AT THIS TIME. WILL ENDORSE CARE TO DAY SHIFT
--- NOTE | 2018-08-13 06:44 | NUR ---
LAB AT BEDSIDE
--- NOTE | 2018-08-13 07:08 | NUR ---
REPORT AND CARE ENDORSED TO IRMA PETERS
--- NOTE | 2018-08-13 08:08 | NUR ---
Resumed care of patient at 0700, orders reviewed and ongoing assessments being done. Remains intubated and sedated. Versed was weaned off prior shift and remains on Diprivan and FentaNLY. At this time unresponsive to tactile and verbal stimulation. Being treated for multiple problems and remains in reverse isolation precautions. Awaiting one unit of PRBC to become available for transfusion, H/H 6.9-20.9.
--- NOTE | 2018-08-13 08:15 | NUR ---
CRITICAL ABG REPORTED TO DR. AGUIRRE. ORDERS TO INCREASED SET RATE ON VENT AT 30. IRMA PETERS MADE AWARE.
[2018-08-13] MEDS ORDERED: CLINIMIX PER PHARMACY IV NR ×2 (08:30)
[2018-08-13] MEDS: Pro-Stat SF 30ml Vanilla PO SCH ×2 (08:35→17:43)
[2018-08-13 08:59] LABS: Band Neutrophils % (manual) 4; Blast Cells 6; Lymphocytes % (manual) 49 (10.0-50.0); Monocytes % (manual) 34 (0-12); Reactive Lymphocytes 2
[2018-08-13] MEDS ORDERED: SODIUM BICARBONATE 50ML VIAL 150 ML in D5W 5% 1,000 ML IV SCH (09:15)
--- NOTE | 2018-08-13 09:42 | NUR ---
CRITICAL ABG REPORTED TO DR. AGUIRRE. NO CHANGES MADE PER DR. AGUIRRE. IRMA PETERS MADE AWARE.
[2018-08-13] MEDS ORDERED: DECITABINE IV SCH (10:00)
[2018-08-13] MEDS: LEVOFLOXACIN 750MG 150 ML IV SCH (10:03)
[2018-08-13] MEDS: FAMOTIDINE (10MG/ML) 2ML VL IV SCH ×2 (10:03→22:00)
[2018-08-13] MEDS: SODIUM CHLOR 0.9% PF (SALINE LOCK) 10ML VIAL/SYR IV SCH ×2 (10:03→22:00)
--- NOTE | 2018-08-13 10:48 | NUR ---
Dr. Dwyer legal word processor rounded at 0900. Reviewed data, plan of care and new orders. Initialed blood transfusion at 0944, no ill effects noted, continue monitoring. Daughter Yashira at bedside, updated her on plan of care. Also spoke with Abraham (daughter) over the phone and updated her as well.
[2018-08-13] MEDS: MICAFUNGIN SODIUM 100 MG in SODIUM CHL 0.9% 100 ML IV SCH (11:05)
[2018-08-13] MEDS ORDERED: MEPERIDINE HCL (25 MG/ML) 1ML VIAL IV PRN (11:30)
--- NOTE | 2018-08-13 11:35 | NUR ---
Nutrition Follow-up Notes Wt.: 105 kg today. Pt's in isolation room, room cureric's close, RN at bedside during rounds earlier. Pt's intubated, sedated with Propogfol @ 7.42 ml/hr providing 197 kcal from Fat. Pt's currently NPO, on Clinimix @ 42 ml/hr providing 510 kcal, 42.5 gm proteins and 340 NPCs. Pt with inadequate PN support d/t low initiation rate delivery of diluted formula aeb current PN infusion meets 37% to 46% of est caloric needs (with Propofol on board) and 34% to 51% of est protein needs. Noted pt's to receive tonight PPN @ 50 ml/hr to provide 1260 kcal, 60 gms pro and 1020 NPCs. Est. Needs reassessed :7786-0988 kcal (15-18 kcal/kgBW), 84-125 gms pro (1.2-1.6 gms/kgIBW 78 kg r/t elev RFT). Will continue to monitor pertinent labs and reassess nutrient need prn Labs: Gluc 211 H, Na 131 H, K 5.3 H, BUN 58 H, Cr 3.64 H, Ca 7.4 L, PHos 8.3 H, Tot mandy 1.4 H, AST 61 H, Alb 1.2 L; Prealb 3.1 L, Trig 128 wnl Skin: Jeremiah scale 13, mod risk, skin intact per head baggage porter. GI: Pt had 1 BM on 08/07 per head baggage porter. PES: Altered nutrition related lab values r/t current/chronic medical condition aeb elev RFT hyperbil, elev LFTs Obesity r/t food intake more than body requirement aeb 143% IBW, BMI 34.6 kg/m2 and increased body adiposity Will continue to monitor NPO status, PN tolerance, skin status, pertinent labs and weight trend. F/u in 2 to 3 days. Rec.: 1.) If still NPO with PN support, consider gradual increase on calories and protein to meet at least 75% of est nutrient need if medically appropriate. 2.) Advance gradually to oral diet or consider EN support if medically appropriate. 3.) Refer pt to RD for further nutrition education and weight monitoring upon discharge. 4.) Continue current plan of care.
[2018-08-13] MEDS: fentaNYL Drip 2500mCg/250mlNS 250 ML IV SCH (12:18)
--- NOTE | 2018-08-13 12:41 | NUR ---
Dr. Ngo rounded at [address] Jauregui, discussed condition and plan of care. Daughter Yashira at bedside and was able to speak with her. Continue current plan of care.
[2018-08-13] MEDS: SODIUM BICARBONATE 50ML VIAL 150 ML in SOD CHL 0.45% 1,000 ML IV SCH (14:24)
[2018-08-13] MEDS: SODIUM CHL 0.9% IV SCH (14:59)
[2018-08-13] MEDS: [UNRECOGNIZED DRUG - OTHER] IV SCH (14:59)
--- NOTE | 2018-08-13 15:16 | NUR ---
ADVANCED ETT BY 4CM PER XRAY. RT FRAN MADE AWARE.
--- NOTE | 2018-08-13 15:57 | NUR ---
Arterial line to right femoral removed. Not reading appropriately, unable to trouble shoot. Dr. Jauregui placed line yesterday. Could not advance arterial catheter and left the dilator in its place. Removed dilator with tip intact and held manual pressure for [address] Ngo aware and okay to discontinue. Sister Ania Bernal inquired about a monotype mechanic. She requested to ask Dr. Ngo if she felt it was necessary for a monotype mechanic to follow. Contacted Dr. Ngo, at this time no need for pulmonary consult per Dr. Ngo.
[2018-08-13] MEDS: VASOPRESSIN 50 UNITS in D5W 5% 247.5 ML IV SCH (16:00)
[2018-08-13] MEDS: NOREPINEPHRINE BITARTRATE 32 MG in D5W 5% 218 ML IV SCH (16:30)
[2018-08-13 17:17] LABS: Hemoglobin 6.5 g/dL (13.5-17.5)
--- NOTE | 2018-08-13 17:25 | NUR ---
H/H drawn at 1455, result released at 1720, HB 6.5. Contacted Dr. Ahumada, ordered one more unit of PRBC to be given today.
[2018-08-13] MEDS: BUMETANIDE 1mg/4ml VIAL (0.25mg/ml) IV SCH (17:42)
--- NOTE | 2018-08-13 18:54 | NUR ---
Initiated second unit of PRBC at 1850.
--- NOTE | 2018-08-13 19:45 | NUR ---
INCREASED SEDATION: REPOSITIONED PATIENT. OPENED EYES, LOOKED ONLY UPWARD, NOT FOLLOWING COMMANDS, FREQUENT COUGHING AND ASYNCHRONY WITH THE VENTILATOR. INCREASED SEDATION
[2018-08-13] MEDS ORDERED: TPN PER PHARMACY IV NR ×5 (20:00)
--- NOTE | 2018-08-13 20:30 | NUR ---
FAMILY UPSET: PATIENT'S SISTER IS UPSET BECAUSE SHE STATES THAT DAY SHIFT SAID SHE WAS ALLOWED TO BRING THE CHILDREN (<16 YEARS OLD) IN TO THE SEE THE PATIENT. MEDICAL TRANSCRIPTION RADIOLOGY EXPLAINED THE VISITING POLICY WELL RISK OF EXPOSURE FOR THE PATIENT AND THE CHILDREN. FAMILY MEMBER STILL UPSET. SPOKE WITH NANCY LEVIN RN.
--- NOTE | 2018-08-13 20:52 | NUR ---
PATIENT'S DAUGHTER, FARIDA, AT BEDSIDE: UPDATED ON PATIENT'S STATUS. ANSWERED ALL QUESTIONS ABLE.
--- NOTE | 2018-08-13 21:42 | NUR ---
FAMILY HEARD ARGUING IN THE WAITING ROOM, ASKED SECURITY TO SPEAK TO THEM
--- NOTE | 2018-08-13 22:03 | NUR ---
PRBC TRANSFUSION COMPLETED - NO S/S OF TRANSFUSION REACTION NOTED AT THIS TIME.
[2018-08-14] VITALS (111 sets, daily range): BP systolic 112–133; BP diastolic 49–73
[2018-08-14] MEDS: ACCU-CHEK COMFORT CURVE STRIP VI SCH ×4 (00:03→18:00)
[2018-08-14] MEDS: InsuLIN REG 1unit/0.01ml Soln (100units/ml) SC SCH ×4 (00:03→18:00)
--- NOTE | 2018-08-14 00:10 | NUR ---
SATURATION DROPPING TO LOW 90s, ASKED RT WESTLEY TO INCREASE FiO2
[2018-08-14 00:23] LABS: Hematocrit 19.3 % (41.0-53.0)
[2018-08-14 00:24] LABS: Hemoglobin 6.5 g/dL (13.5-17.5)
--- NOTE | 2018-08-14 00:26 | NUR ---
HGB 6.5 - PAGED SENIOR ELECTRONICS DESIGN ENGINEER HOSPITALIST
--- NOTE | 2018-08-14 00:52 | NUR ---
CONFIRMED WITH BLOOD BANK THAT THEY RECEIVED BLOOD PRODUCT ORDER
[2018-08-14] MEDS: fentaNYL Drip 2500mCg/250mlNS 250 ML IV SCH (01:25)
[2018-08-14] MEDS: SODIUM BICARBONATE 50ML VIAL 150 ML in SOD CHL 0.45% 1,000 ML IV SCH ×2 (01:45→15:11)
--- NOTE | 2018-08-14 01:45 | NUR ---
PLATELET TRANSFUSION STARTED - WILL REMAIN AT BEDSIDE TO MONITOR FOR TRANSFUSION REACTION
--- NOTE | 2018-08-14 02:05 | NUR ---
PLATELETS TRANSFUSED - NO S/S OF TRANSFUSION REACTION
--- NOTE | 2018-08-14 02:10 | NUR ---
PRBC TRANSFUSION STARTED - WILL REMAIN AT BEDSIDE TO MONITOR FOR TRANSFUSION REACTION
--- NOTE | 2018-08-14 02:34 | NUR ---
PRBC TRANSFUSION: NO S/S OF TRANSFUSION REACTION. LS CTA, DIMINISHED TO BASES, WILL CONT CARE
[2018-08-14] MEDS: LEVALBUTEROL HCL 1.25 MG/3 ML NEB NEB SCH ×6 (02:52→22:15)
[2018-08-14] MEDS: IPRATROPIUM BROM 0.5 MG/2.5ML INH SOL NEB SCH ×6 (02:52→22:15)
--- NOTE | 2018-08-14 03:30 | NUR ---
BED BATH WITH CHG WIPES, LISA CARE, LAY CARE, ORAL CARE, AND PARTIAL LINEN CHANGE COMPLETED
[2018-08-14] MEDS: ALBUMIN 25% 100 ML IV SCH (04:15)
[2018-08-14] MEDS: BUMETANIDE 1mg/4ml VIAL (0.25mg/ml) IV SCH ×2 (05:39→18:00)
[2018-08-14] MEDS: CEFTAROLINE 600 MG in SODIUM CHL 0.9% 250 ML IV SCH ×2 (05:40→18:00)
[2018-08-14] MEDS: methylPREDNISolone SOD SUCC 125 MG/2 ML VL IV SCH ×3 (05:40→22:25)
[2018-08-14] MEDS: PROPOFOL 100 ML IV SCH ×2 (05:56→21:36)
--- NOTE | 2018-08-14 06:00 | NUR ---
LABS DRAWN AND SENT
[2018-08-14] MEDS: SULFAMETH-TRIMETH 80/16MG-ML 25 ML in D5W 5% 500 ML IV SCH ×3 (06:43→23:19)
[2018-08-14 07:16] LABS: Potassium 4.9 mmol/L (3.5-5.1)
[2018-08-14 07:18] LABS: Hemoglobin 7.1 g/dL (13.5-17.5)
[2018-08-14 07:21] LABS: Albumin 2.1 g/dL (3.4-5.0); BUN/Creatinine Ratio 17.1; Bilirubin, Total 0.6 mg/dL (0.2-1.0); Magnesium 2.8 mg/dL (1.6-2.6); Total Protein 7.2 g/dL (6.4-8.2)
[2018-08-14 07:22] LABS: Hematocrit 20.7 % (41.0-53.0); Mean Corpuscular Hemoglobin 31.7 pg (28.0-32.0); Mean Corpuscular Hgb Conc. 34.4 g/dL (32.0-36.0); Mean Corpuscular Volume 92.2 fL (80.0-100.0); Platelet Count (auto) 22 10^3/uL (140-450); Red Blood Cells 2.24 10^6/uL (4.5-5.90); Red Cell Distribution Width 16.3 % (11.8-14.3)
--- NOTE | 2018-08-14 07:25 | NUR ---
REPORT AND CARE ENDORSED TO IRMA ROBLEDO
[2018-08-14 07:41] LABS: White Blood Cell 0.7 10^3/uL (4.4-10.8)
[2018-08-14 07:43] LABS: Basophils % (manual) 0 (0.0-2.0); Eosinophils % (manual) 0 (0-7); Metamyelocytes % 0; Myelocytes % 0; Promyelocytes % 0
--- NOTE | 2018-08-14 08:00 | NUR ---
OPENING NOTE Received patient on mechanical ventilator sedated on Fentanyl 200mcg and Diprivan 8mcg. Patient does not open eyes to tactile/verbal stimuli, pupils reactive to light, hypoactive gag/cough reflex, does not follow commands and withdrawals to pain. Sinus rhythm in the 90's on bedside monitor, pulses palpable on upper/lower extremities with edema observed throughout. NG tube to the right nare checked and verified via air bolus: connected to low intermittent suction and draining dark green bile. Abdomen soft but distended with no bowel sounds present and last bowel movement unknown per NOC nurse Connie. Right upper arm PICC line(TLC) present with capps port not flushing, right hand 20g IV, right IJ(TLC):good blood return and flushes easily infusing TPN at 50ml/hr and 0.45NS with three amps of bicarb at 100ml/hr. Skin intact. Oral care provided. SCD's on. Bed at lowest position and call light with in reach. Will continue to titrate as tolerated by patient.
[2018-08-14 08:19] LABS: Phosphorus 8.4 mg/dL (2.5-4.90)
--- NOTE | 2018-08-14 10:05 | NUR ---
FAMILY Received phone call from patients daughter was able to provided correct password and updated given.
--- NOTE | 2018-08-14 10:15 | NUR ---
MD Dr. Hathaway at bedside updated on patient condition and aware of AM ABG and AM labs with no new orders at this time.
--- NOTE | 2018-08-14 10:45 | NUR ---
MD Dr. Ahumada at bedside updated on patient condition and aware of HGB and WBC with no new orders at this time. MD would like to know when pharmacy will be sending Venetoclax (Chemotherapy pill) that should be started as soon as possible. Will call pharmacy to clarify.
--- NOTE | 2018-08-14 11:05 | NUR ---
PHARMACY Called and spoke to pharmacist regarding chemotherapy pill Venetoclax and states " that Dr. Ragsdale did not approve the medication secondary to how expensive it is." Will notify Dr. Ahumada.
[2018-08-14] MEDS: LEVOFLOXACIN 750MG 150 ML IV SCH (11:13)
[2018-08-14] MEDS: Pro-Stat SF 30ml Vanilla PO SCH ×2 (11:13→18:00)
[2018-08-14] MEDS: MICAFUNGIN SODIUM 100 MG in SODIUM CHL 0.9% 100 ML IV SCH (11:14)
[2018-08-14] MEDS: FAMOTIDINE (10MG/ML) 2ML VL IV SCH ×2 (11:15→22:25)
[2018-08-14] MEDS: SODIUM CHLOR 0.9% PF (SALINE LOCK) 10ML VIAL/SYR IV SCH ×2 (11:15→22:25)
--- NOTE | 2018-08-14 11:30 | NUR ---
FAMILY Patients significant other at bedside updated on patient condition and questions/concerns answered.
--- NOTE | 2018-08-14 11:55 | NUR ---
CHEMOTHERAPY NURSE Called the WEST wing, E[facility] wing, Central wing, [facility] and ER to ask if anyone is chemo certified. All wings state " they have no one that is chemo certified." Charge nurse Destinee carreon and was given Gela (Oncology nurse) number [phone]. Will call to see if she is able to come by to administer chemo medication.
--- NOTE | 2018-08-14 12:00 | NUR ---
CHEMOTHERAPY NURSE Called and spoke to Gela at [phone] regarding if she can come to administer chemo medication. Gela states " already clocked in my hours unable to come by to administer medication." Gela did go over step by step on how to administer medication but per policy the nurse to administer the medication has to be certified. Charge nurse Destinee aware and will speak to supervisor dog license officer Purnima.
[2018-08-14 12:55] LABS: Band Neutrophils % (manual) 3
[2018-08-14 12:56] LABS: Blast Cells 5; Lymphocytes % (manual) 51 (10.0-50.0); Monocytes % (manual) 25 (0-12); Reactive Lymphocytes 1
--- NOTE | 2018-08-14 13:00 | NUR ---
WOUND CARE NOTE: IN TO SEE PATIENT AT THIS TIME FOR SKIN INTEGRITY MONITORING. PATIENT NOW INTUBATED, SEDATED, AT HIGH RISK FOR SKIN BREAKDOWN D/T IMMOBILITY. PATIENT HAS CURRENT GLORIA SCORE OF 10. SKIN IS CLEAR, ALL BONY PROMINENCES ARE YORK AND BLANCHABLE. APPLIED OPTIFOAM GENTLE SACRAL DRESSING PREVENTATIVE, SKIN/WOUND CARE PLAN IMPLEMENTED. RECOMMEND: FREQUENT TURN SCHEDULE Q 2 HOURS, PRN CONDITION PERMITS, WITH PRESSURE REDISTRIBUTION USING PILLOWS/WEDGES, BID/PRN APPLICATION WITH MOISTURE BARRIER CREAM, OPTIFOAM GENTLE SACRAL DRESSING, DIETARY CONSULT FOR LOW GLORIA, SKIN/WOUND CARE PLAN, CONTINUED MONITORING BY WOUND CARE TEAM.
--- NOTE | 2018-08-14 13:25 | NUR ---
MD Dr. Mccabe at bedside updated on patient condition with no new orders.
--- NOTE | 2018-08-14 13:50 | NUR ---
ICU DIRECTOR ICU director Alison aware of no chemotherapy certified nurse to administer medication and states to housekeeper head Purnima she will call and speak to Micki JEAN.
[2018-08-14] MEDS: MIDAZOLAM DRIP 50 mg/50mL 50 ML IV SCH (15:12)
[2018-08-14] MEDS: NOREPINEPHRINE BITARTRATE 32 MG in D5W 5% 218 ML IV SCH (15:49)
[2018-08-14] MEDS: VASOPRESSIN 50 UNITS in D5W 5% 247.5 ML IV SCH (16:00)
--- NOTE | 2018-08-14 19:17 | NUR ---
PAGED DR. DONNELLY
--- NOTE | 2018-08-14 19:22 | NUR ---
SPOKE WITH DR. DONNELLY: NOTIFIED THAT VENETOCLAX WAS NOT APPROVED BY THE HOSPITAL. ALSO NOTIFIED THAT PATIENT DID NOT RECEIVE CHEMOTHERAPY TODAY D/T UNAVAILABILITY OF CHEMO CERTIFIED NURSES. DR. DONNELLY VERBALIZED UNDERSTANDING. NO NEW ORDERS AT THIS TIME.
--- NOTE | 2018-08-14 19:29 | NUR ---
PAGED DR. CUELLO
--- NOTE | 2018-08-14 19:42 | NUR ---
SPOKE WITH DR. CUELLO: INQUIRED WITH DR. CUELLO ABOUT PATIENT'S RENAL STATUS. PER DR. CUELLO, STOP IVF AND START ON BUMEX DRIP AT 1MG/HR. ORDERS READBACK AND VERIFIE
--- NOTE | 2018-08-14 19:47 | NUR ---
NOTIFIED HOUSE SUP OF NEED OF BUMEX GTT FROM PHARMACY; PER HOUSE SUP, SHE WILL CONTACT PHARMACY
[2018-08-14] MEDS ORDERED: TPN PER PHARMACY IV NR ×5 (20:00)
--- NOTE | 2018-08-14 21:12 | NUR ---
ALISIA, FUR COMBER, CALLED PHARMACY TO FOLLOW UP ON BUMEX GTT
--- NOTE | 2018-08-14 21:13 | NUR ---
SPOKE WITH FAMILY AT BEDSIDE: ALL QUESTIONS ANSWERED ABLE
[2018-08-14] MEDS: [UNRECOGNIZED DRUG - OTHER] IV SCH (22:24)
[2018-08-14] MEDS: SODIUM CHL 0.9% IV SCH (22:24)
[2018-08-14] MEDS: BUMETANIDE INJECTION 25 MG in GIVE UN-DILUTED 0 ML IV SCH (22:25)
--- NOTE | 2018-08-14 22:40 | NUR ---
CHEMO ADMINISTRATION: As per manufacture administration guidelines, CBC and Plt count was drawn today. Chemo dosage checked by myself and Connie primary RN. Pump was set to administration rate by Connie RN, and chemo was started by myself after doning proper PPE for chemo administration.
--- NOTE | 2018-08-14 22:41 | NUR ---
CHEMOTHERAPY ADMINISTERED BY IRMA CARLTON
--- NOTE | 2018-08-14 23:45 | NUR ---
CHEMO COMPLETE: All tubing, medication bag and NS fluid double bagged and placed in special chemo container per protocol and chemo administration guidelines
[2018-08-15] VITALS (109 sets, daily range): BP systolic 118–156; BP diastolic 47–105
[2018-08-15] MEDS: fentaNYL Drip 2500mCg/250mlNS 250 ML IV SCH ×3 (01:01→23:02)
[2018-08-15] MEDS: IPRATROPIUM BROM 0.5 MG/2.5ML INH SOL NEB SCH ×6 (02:43→22:14)
[2018-08-15] MEDS: LEVALBUTEROL HCL 1.25 MG/3 ML NEB NEB SCH ×6 (02:44→22:14)
[2018-08-15] MEDS: PROPOFOL 100 ML IV SCH ×4 (03:36→22:26)
[2018-08-15 03:57] LABS: Hematocrit 20.6 % (41.0-53.0); Mean Corpuscular Hemoglobin 31.3 pg (28.0-32.0); Mean Corpuscular Hgb Conc. 34.2 g/dL (32.0-36.0); Mean Corpuscular Volume 91.5 fL (80.0-100.0); Red Blood Cells 2.25 10^6/uL (4.5-5.90); Red Cell Distribution Width 16.9 % (11.8-14.3)
[2018-08-15 04:01] LABS: Platelet Count (auto) 18 10^3/uL (140-450); White Blood Cell 0.6 10^3/uL (4.4-10.8)
[2018-08-15 04:04] LABS: Basophils % (manual) 0 (0.0-2.0); Eosinophils % (manual) 0 (0-7); Metamyelocytes % 0; Myelocytes % 0; Promyelocytes % 0
[2018-08-15 04:15] LABS: Potassium 5.1 mmol/L (3.5-5.1)
[2018-08-15 04:23] LABS: BUN/Creatinine Ratio 18.1; Bilirubin, Total 0.5 mg/dL (0.2-1.0); Calcium 6.4 mg/dL (8.5-10.1); Total Protein 7.4 g/dL (6.4-8.2)
--- NOTE | 2018-08-15 05:15 | NUR ---
PARTIAL BED BATH, FULL LINEN CHANGE COMPLETED
[2018-08-15 05:33] LABS: Band Neutrophils % (manual) 1; Lymphocytes % (manual) 52 (10.0-50.0); Monocytes % (manual) 22 (0-12)
[2018-08-15 05:34] LABS: Blast Cells 5; Reactive Lymphocytes 3
[2018-08-15] MEDS: methylPREDNISolone SOD SUCC 125 MG/2 ML VL IV SCH ×3 (06:02→21:59)
[2018-08-15] MEDS: ACCU-CHEK COMFORT CURVE STRIP VI SCH ×4 (06:02→18:26)
[2018-08-15] MEDS: CEFTAROLINE 600 MG in SODIUM CHL 0.9% 250 ML IV SCH ×2 (06:02→18:26)
[2018-08-15] MEDS: InsuLIN REG 1unit/0.01ml Soln (100units/ml) SC SCH ×4 (06:02→18:26)
[2018-08-15] MEDS: SULFAMETH-TRIMETH 80/16MG-ML 25 ML in D5W 5% 500 ML IV SCH ×3 (06:41→23:02)
--- NOTE | 2018-08-15 07:17 | NUR ---
REPORT AND CARE ENDORSED TO IRMA ROBLEDO
[2018-08-15] MEDS: Pro-Stat SF 30ml Vanilla PO SCH ×2 (08:00→18:00)
--- NOTE | 2018-08-15 09:00 | NUR ---
MD Dr. Mccabe at bedside updated on patient condition and received communication order for Dr. Ragsdale to insert dialysis catheter in order to start dialysis.
--- NOTE | 2018-08-15 09:45 | NUR ---
MD Dr. Hathaway at bedside updated on patient condition with new orders received MD to input into system.
--- NOTE | 2018-08-15 10:45 | NUR ---
FAMILY Received phone call from patients sister and was able to provided correct password and updated given to sister.
[2018-08-15] MEDS: FAMOTIDINE (10MG/ML) 2ML VL IV SCH ×2 (10:52→21:59)
[2018-08-15] MEDS: LEVOFLOXACIN 750MG 150 ML IV SCH (10:52)
[2018-08-15] MEDS: MICAFUNGIN SODIUM 100 MG in SODIUM CHL 0.9% 100 ML IV SCH (10:52)
[2018-08-15] MEDS: SODIUM CHLOR 0.9% PF (SALINE LOCK) 10ML VIAL/SYR IV SCH ×2 (10:52→21:59)
[2018-08-15] MEDS: BUMETANIDE INJECTION 25 MG in GIVE UN-DILUTED 0 ML IV SCH (10:53)
[2018-08-15] MEDS ORDERED: CALCIUM GLUC 4.65meq/50ml D5AE 50 ML IV ONE (11:15)
[2018-08-15 11:17] LABS: Magnesium 2.6 mg/dL (1.6-2.6)
--- NOTE | 2018-08-15 11:20 | NUR ---
Nutrition Consult and Follow-up Notes Wt.: 118.3 kg today. Noted 13.3 kg weight gain in last 2 days likely d/t ? fluid retention aeb positive I & Os for past few days. Pt's in isolation room, no immediate family member at bedside during rounds this morning. Pt's intubated, sedated with Propofol @ 12.456 ml/hr providing 329 kcal from Fat. Pt's on Chemotherapy, currently NPO, on PPN @ 50 ml/hr providing 1260 kcal, 60 gms proteins and 1020 NPCs. Pt with adequate PN support d/t nod initiation rate delivery of less concentrated formula aeb current PN infusion meets 84% to 103% of est caloric needs (with Propofol on board) however meets 48% to 71% of est protein needs. Est. Needs reassessed :5199-8022 kcal (15-18 kcal/kgBW), 84-125 gms pro (1.2-1.6 gms/kgIBW 78 kg r/t elev RFT). Will continue to monitor pertinent labs and reassess nutrient need prn Labs: Gluc 196 H, Na 125 H, Cl 87 L, BUN 107 H, Cr 5.91 H, Ca 6.4 L, Alb 2.0 L; Prealb 3.1 L, Trig 128 wnl Skin: Jeremiah scale 13, mod risk, skin intact per inside wirer. GI: Pt had 1 BM on 08/07 per inside wirer. PES: Altered nutrition related lab values r/t current/chronic medical condition aeb elev RFT hyperbil, elev LFTs Obesity r/t food intake more than body requirement aeb 143% IBW, BMI 34.6 kg/m2 and increased body adiposity Will continue to monitor NPO status, PN tolerance, skin status, pertinent labs and weight trend. F/u in 2 to 3 days. Rec.: 1.) If still NPO with PN support, consider gradual increase on protein to meet at least 75% of est nutrient need if medically appropriate. 2.) Advance gradually to oral diet or consider EN support if medically appropriate. 3.) Refer pt to RD for further nutrition education and weight monitoring upon discharge. 4.) Continue current plan of care.
--- NOTE | 2018-08-15 11:30 | NUR ---
CRITICAL LAB Received critical lab value of Phosphorus 10, will notify
--- NOTE | 2018-08-15 11:40 | NUR ---
Paged and spoke to Dr. Hathaway regarding Phosphorus of 10 MD states " to call clerical support specialist." Will call Dr. Mccabe.
--- NOTE | 2018-08-15 11:45 | NUR ---
MD Dr. Mccabe paged at [phone] spoke to Karel, who will relay message for to call this RN for critical lab, awaiting for MD to call back.
--- NOTE | 2018-08-15 12:40 | NUR ---
MD Dr. Mccabe called back and aware of Phosphorus of 10 with new orders to ask pharmacist if we carry Rasburicase IV if we do have pharmacy dose medication accordingly. IF not do not need to call back we will start dialysis tomorrow once dialysis catheter is placed.
--- NOTE | 2018-08-15 13:15 | NUR ---
PHARMACY Called and spoke to pharmacist Ailin and he states " medication is not available here at this facility."
[2018-08-15] MEDS: MIDAZOLAM DRIP 50 mg/50mL 50 ML IV SCH ×3 (15:12→22:26)
[2018-08-15] MEDS: NOREPINEPHRINE BITARTRATE 32 MG in D5W 5% 218 ML IV SCH (15:49)
[2018-08-15] MEDS: VASOPRESSIN 50 UNITS in D5W 5% 247.5 ML IV SCH (16:00)
--- NOTE | 2018-08-15 17:00 | NUR ---
RESPIRATORY RT Hever at bedside to had to increase Fio2 to 95% secondary to patient desating into the 80's and sustaining. Patient tolerated well and sating in the 90's.
--- NOTE | 2018-08-15 17:01 | NUR ---
Increased Fio2 95% due to low sats = 85%, Sats now at 90%. IRMA carreon.
[2018-08-15 19:06] LABS: Mean Corpuscular Volume 92.5 fL (80.0-100.0); Red Blood Cells 2.27 10^6/uL (4.5-5.90)
[2018-08-15 19:09] LABS: Mean Corpuscular Hemoglobin 30.9 pg (28.0-32.0); Mean Corpuscular Hgb Conc. 33.4 g/dL (32.0-36.0); Red Cell Distribution Width 16.7 % (11.8-14.3)
--- NOTE | 2018-08-15 19:15 | NUR ---
DYLLAN'Destin SCANLON AND STARTED VERSED - RECEIVED PATIENT ABDOMINALLY BREATHING, STACKING HIS BREATHS IN THE 40s. SpO2 MID 80s ON 100% FiO2.
--- NOTE | 2018-08-15 19:15 | NUR ---
OPENING NOTE: PATIENT DESATURATING DOWN TO 80s ON 100% FiO2, RR IN HIGH 30s. ABDOMINAL BREATHING, STACKING HIS BREATHS. INTUBATED AND GROSSLY UNRESPONSIVE. DOES OPEN EYES, BUT NOT TRACK NOR FOLLOW COMMANDS. SINUS TACH WITH BBB, HR 100s. 8.0 ETT 28 AT THE LIP. COARSE LUNG SOUNDS THROUGHOUT. MODERATE TO LARGE AMOUNT OF CREAMY THICK SECRETIONS IN THE OROPHARYNX. ABD DISTENDED BUT SOFT. OGT +AIR BOLUS, LIS, BILIOUS. LBM DOCUMENTED 08/07. LAY PATENT AND INTACT, DRAINING ALISIA URINE. SKIN GROSSLY INTACT. RIGHT UPPER ARM PICC, CDI, PATENT WITH BLOOD RETURN, EXCEPT FOR JACOBS PORT. LEFT IJ TLC, CDI, PATENT WITH BLOOD RETURN. LEFT UPPER ARM/CHEST 20 G PIV, CDI, PATENT WITH BLOOD RETURN. REINFORCED POC. MAINTAINED PATIENT SAFETY: BED LOCKED AND IN THE LOWEST POSITION, FREQUENT VISUAL CHECKS. WILL CONT CARE, NO FAMILY PRESENT AT THIS TIME
[2018-08-15 19:22] LABS: White Blood Cell 0.7 10^3/uL (4.4-10.8)
[2018-08-15 19:24] LABS: Band Neutrophils % (manual) 0; Basophils % (manual) 0 (0.0-2.0); Blast Cells 0; Eosinophils % (manual) 0 (0-7); Metamyelocytes % 0; Myelocytes % 0; Promyelocytes % 0; Reactive Lymphocytes 0
[2018-08-15] MEDS ORDERED: TPN PER PHARMACY IV NR ×5 (20:00)
--- NOTE | 2018-08-15 20:00 | NUR ---
TOO UNSTABLE TO TURN AT THIS TIME D/T RESPIRATORY STATUS: PATIENT SUPINE IN HIGH FOWLERS
[2018-08-15] MEDS: [UNRECOGNIZED DRUG - OTHER] IV SCH (20:34)
[2018-08-15] MEDS: SODIUM CHL 0.9% IV SCH (20:34)
--- NOTE | 2018-08-15 20:34 | NUR ---
CHEMO ADMINISTERED BY IRMA CARLTON
--- NOTE | 2018-08-15 21:00 | NUR ---
UNABLE TO COMPLETE SEDATION VACATION AT THIS TIME, PATIENT ASYNCHRONOUS WITH THE VENT Addendum: 08/15/18 at 2330 by oCnnie Tran RN RN Amended: Links added.
[2018-08-15 21:43] LABS: Lymphocytes % (manual) 48 (10.0-50.0); Monocytes % (manual) 39 (0-12)
[2018-08-15 21:45] LABS: Platelet Count (auto) 22 10^3/uL (140-450)
[2018-08-15] MEDS: ACETYLCYSTEINE 10 %(100MG/ML) SOL 4ML NEB SCH (22:15)
--- NOTE | 2018-08-15 22:27 | NUR ---
REMAINS TOO UNSTABLE TO TURN AT THIS TIME, WILL CONT CARE
--- NOTE | 2018-08-15 23:15 | NUR ---
NOTED WITH SpO2 DISCREPANCY BETWEEN FINGER AND EARS - ASKED LEANDRA RT TO ASSESS: EAR PROBE SpO2 >92%, FINGER PROBE SpO2 MID 80s
[2018-08-16] VITALS (46 sets, daily range): BP systolic 94–150; BP diastolic 40–64
--- NOTE | 2018-08-16 | NUR ---
PLACED THE BED ON AUTO ROTATE: 10 DEGREES RIGHT AND LEFT WITH A 90 MINUTE HOLD RIGHT, SUPINE AND LEFT. PATIENT REMAINS IN A SEMI-HIGH GIBBONS POSITION
[2018-08-16] MEDS ORDERED: ATROPINE SULFATE 1 MG/1 ML VIAL ONE ×2 (00:04→10:45)
[2018-08-16] MEDS: ACCU-CHEK COMFORT CURVE STRIP VI SCH ×2 (00:11→06:00)
[2018-08-16] MEDS: InsuLIN REG 1unit/0.01ml Soln (100units/ml) SC SCH ×2 (00:11→06:00)
--- NOTE | 2018-08-16 00:11 | NUR ---
SUDDEN RATE DROP FROM 100s TO 60s -ASKED POONAM, LABORATORY ANIMAL CARETAKER TO PULL ATROPINE JUST IN CASE
--- NOTE | 2018-08-16 00:15 | NUR ---
PATIENT WITH BIGEMINAL PACs
--- NOTE | 2018-08-16 00:24 | NUR ---
WILL DRAW BMP TO CHECK ELECTROLYTES
[2018-08-16 00:58] LABS: BUN/Creatinine Ratio 16.6; Calcium 6.1 mg/dL (8.5-10.1)
--- NOTE | 2018-08-16 01:07 | NUR ---
PAGED QUARTER BACKER HOSPITALIST REGARDING POTASSIUM LEVEL 6.0
[2018-08-16] MEDS ORDERED: SODIUM BICARBONATE 8.4% INJ 50ML SYRINGE ONE ×2 (01:13→06:26)
--- NOTE | 2018-08-16 01:13 | NUR ---
NOTIFIED TEENA SOTOMAYOR OF POTASSIUM LEVEL AND AWAITING HD: ORDERS FOR HYPERKALEMIA COCKTAIL. ORDERS READBACK AND VERIFIED.
[2018-08-16] MEDS ORDERED: CALCIUM GLUC 4.65 MEQ/10ML 10 ML IV ONE (01:14)
[2018-08-16] MEDS ORDERED: SODIUM ZIRCONIUM CYCL 10 GM PAK PO ONE (01:15)
[2018-08-16] MEDS ORDERED: DEXTROSE (50%) 50ML SYRG IV ONE (01:15)
[2018-08-16] MEDS ORDERED: InsuLIN REG 1unit/0.01ml Soln (100units/ml) IV ONE (01:15)
[2018-08-16] MEDS ORDERED: SODIUM BICARBONATE 8.4 % INJ 50ML VIAL IV ONE ×2 (01:15→06:45)
--- NOTE | 2018-08-16 01:30 | NUR ---
AFTER HYPERKALEMIA COCKTAIL GIVEN PATIENT WENT IN AND OUT OF ACCELERATED JUNCTIONAL
[2018-08-16] MEDS: PROPOFOL 100 ML IV SCH ×2 (01:41→04:51)
--- NOTE | 2018-08-16 02:00 | NUR ---
NOTED WITH PAULINA RED BLOOD COMING FROM ORAL CAVITY.
[2018-08-16] MEDS: IPRATROPIUM BROM 0.5 MG/2.5ML INH SOL NEB SCH ×3 (02:32→10:15)
[2018-08-16] MEDS: LEVALBUTEROL HCL 1.25 MG/3 ML NEB NEB SCH ×3 (02:32→10:15)
[2018-08-16] MEDS: ACETYLCYSTEINE 10 %(100MG/ML) SOL 4ML NEB SCH ×3 (02:33→10:15)
--- NOTE | 2018-08-16 04:00 | NUR ---
UNABLE TO CHANGE LINEN AT THIS TIME DUE TO RESPIRATORY STATUS
--- NOTE | 2018-08-16 04:00 | NUR ---
STOPPED AUTO ROTATE ON BED
--- NOTE | 2018-08-16 04:00 | NUR ---
BED BATH, LISA CARE, LAY CARE, AND ORAL CARE
[2018-08-16] MEDS: MIDAZOLAM DRIP 50 mg/50mL 50 ML IV SCH (04:19)
--- NOTE | 2018-08-16 05:00 | NUR ---
PATIENT NOW JUNCTIONAL WITH HR IN HIGH 50s
[2018-08-16] MEDS: methylPREDNISolone SOD SUCC 125 MG/2 ML VL IV SCH (06:00)
[2018-08-16] MEDS: CEFTAROLINE 600 MG in SODIUM CHL 0.9% 250 ML IV SCH (06:00)
--- NOTE | 2018-08-16 06:00 | NUR ---
PATIENT DESATURATING DOWN TO LOW 80s - ASKED DANNIELLE, RT TO DRAW ABG
--- NOTE | 2018-08-16 06:15 | NUR ---
Respiratory note: CRITICAL AM ABG RESULTS REPORTED TO Kaitlin SOTOMAYOR AT THIS TIME. СВЕТЛАНА Madrigal SPOKE TO IRMA ANN WHO IS ALSO AWARE OF AM ABG RESULTS. NO NEW RT ORDERS RECEIVED. RN TO GIVE BICARB.
[2018-08-16 06:16] LABS: Hematocrit 20.9 % (41.0-53.0); Mean Corpuscular Hemoglobin 31.6 pg (28.0-32.0)
[2018-08-16 06:21] LABS: INR 1.08 (0.9-1.15); Partial Thromboplastin Time 34.1 sec (23.64-32.05)
[2018-08-16 06:29] LABS: Mean Corpuscular Hgb Conc. 33.1 g/dL (32.0-36.0); Mean Corpuscular Volume 95.5 fL (80.0-100.0); Red Blood Cells 2.18 10^6/uL (4.5-5.90); Red Cell Distribution Width 17.6 % (11.8-14.3)
--- NOTE | 2018-08-16 06:36 | NUR ---
SPOKE TO TEENA SOTOMAYOR REGARDING ABG RESULTS, PATIENT'S STATUS AND POC: PER TEENA SOTOMAYOR GIVE 2 AMPS OF SODIUM BICARB. MAY START LOW DOSE DOPAMINE FOR BRADYCARDIA, AND SHE WILL GET IN TOUCH WITH DR BAKER
[2018-08-16 06:37] LABS: Albumin 1.9 g/dL (3.4-5.0); Calcium 6.3 mg/dL (8.5-10.1); Magnesium 2.9 mg/dL (1.6-2.6); Total Protein 7.2 g/dL (6.4-8.2)
[2018-08-16] MEDS: SULFAMETH-TRIMETH 80/16MG-ML 25 ML in D5W 5% 500 ML IV SCH (06:39)
[2018-08-16] MEDS ORDERED: DOPamine 1600MCG/ML D5W 250 ML IV SCH (06:39)
[2018-08-16] MEDS ORDERED: DOPamine 1600MCG/ML D5W 250 ML IV ONE (06:43)
--- NOTE | 2018-08-16 06:50 | NUR ---
HR IN LOW 50s, DOPAMINE DRIP STARTED
[2018-08-16 06:59] LABS: Potassium 6.5 mmol/L (3.5-5.1)
[2018-08-16 07:00] LABS: Phosphorus 13.4 mg/dL (2.5-4.90)
[2018-08-16 07:10] LABS: Hemoglobin 6.9 g/dL (13.5-17.5); Platelet Count (auto) 20 10^3/uL (140-450); White Blood Cell 0.8 10^3/uL (4.4-10.8)
--- NOTE | 2018-08-16 07:10 | NUR ---
REPORT AND CARE ENDORSED TO IRMA PETERS
[2018-08-16 07:11] LABS: Band Neutrophils % (manual) 0; Basophils % (manual) 0 (0.0-2.0); Eosinophils % (manual) 0 (0-7); Metamyelocytes % 0; Myelocytes % 0; Promyelocytes % 0; Reactive Lymphocytes 0
--- NOTE | 2018-08-16 07:12 | NUR ---
NOTIFIED FARIDA, DAUGHTER, OF CHANGE IN PATIENT'S STATUS: PER FARIDA, SHE IS ON HER WAY TO THE HOSPITAL
[2018-08-16] MEDS ORDERED: LEVOFLOXACIN 750MG 150 ML IV SCH ×2 (08:30→10:00)
[2018-08-16] MEDS ORDERED: CEFTAROLINE 300 MG in SODIUM CHL 0.9% 250 ML IV SCH ×2 (08:30→18:00)
[2018-08-16 08:44] LABS: Blast Cells 3; Lymphocytes % (manual) 64 (10.0-50.0); Monocytes % (manual) 25 (0-12)
[2018-08-16] MEDS ORDERED: SULFAMETH-TRIMETH 80/16MG-ML 25 ML in D5W 5% 500 ML IV SCH (10:00)
--- NOTE | 2018-08-16 10:02 | NUR ---
Resumed care at 0700, orders reviewed and ongoing assessments being done. Being treated for multiple problems and remains intubated and sedated. At this time GCS=3. Dopamine gtt initiated on prior shift for hemodynamic stability. HR remains junctional with a rate of 69-71, and BP holding 137/63 at this time. Drooling bloody secretions from mouth, no other bleeding noted at this time. Both adult daughters and extended family here and visiting, utilizing isolation protocol (reversal) secondary to low WBC count, 0.[address] Jauregui via phone at 0930 to discussed condition and plan of care, awaiting arrival to unit.
[2018-08-16] MEDS ORDERED: TPN PER PHARMACY IV NR ×10 (10:15→20:00)
[2018-08-16] MEDS ORDERED: CALCIUM GLUC 4.65meq/50ml D5AE 50 ML IV ONE (11:30)
--- NOTE | 2018-08-16 11:52 | NUR ---
Noted at 1015 am having episodes of heart rate dropping. Lowest rate 48, went up on the Dopamine to 12mcg/kg/min. Multiple family members at bedside at the time. Episodes becoming more frequent and crash cart brought in room, defibrillator pads already in placed and attached to monitor. At 1026 rate dropped to 24 with no pulse, ginny sol called and CPR initiated. Dr. Jauregui walked in unit at 1027 and ran the code blue. Family remained in unit and were able to observe. Resuscitation unsuccessful and called at [address] Jauregui. Family very distraught and emotional support offered. Contacted Victor Manuel at 11:11 and spoke with Yolis until 11:16. All information given and reference number obtained ([id number]). Per Victor Manuel, declined. Contacted the [facility] at 1145, attempted twice earlier but placed on hold and call hung up. Awaiting call back from Salon Manager.
[2018-08-16] MEDS ORDERED: MICAFUNGIN SODIUM 100 MG in SODIUM CHL 0.9% 100 ML IV SCH (12:00)
[2018-08-16] MEDS ORDERED: ATROPINE SULF 1 MG/10ml SYR IM ONE (12:47)
[2018-08-16] MEDS ORDERED: CALCIUM CHLOR(10%) 100MG/ML 10ML SYRINGE IV ONE (12:47)
[2018-08-16] MEDS ORDERED: SODIUM BICARBONATE 8.4% INJ 50ML SYRINGE IV ONE (12:47)
[2018-08-16] MEDS ORDERED: EPINEPHrine HCL 1 MG/10 ML SYRG IV ONE (12:47)
--- NOTE | 2018-08-16 15:39 | NUR ---
Received call back from [facility] at 1409. Spoke with Yessenia Negrete, all information given. Patient released and post mortem care done. Family has not chosen a accepting facility/mortuary. Local information given regarding facilities. Will allow one more hour of visitation before transferring to the body hold area of the hospital. All belongings given to family.
--- NOTE | 2018-08-16 17:44 | NUR ---
Unable to transfer to body hold area, full. Family has been aware and trying to make arrangements. Unable to make arrangements. Made them aware that the Hospital has a agreement with [facility] in [place], courtesy hold for 48 hours, there after 150 dollars per 24 hours. Family in room defocussing arrangements.
--- NOTE | 2018-08-16 18:14 | NUR ---
Family agreed to utilize [facility] for courtesy hold for 48 hours. Daughter Abraham Bernal signed authorization for release of remains. Called and spoke with Maura, asked to call back in 15 minutes.
--- NOTE | 2018-08-16 18:46 | NUR ---
Spoke with Maura from [facility], all information given. Family in waiting room. Just received call from SEE Davidson 60-90 minutes.
--- NOTE | 2018-08-16 19:07 | NUR ---
Report given to Remington Ocasio RN.
[2018-08-17] MEDS ORDERED: DECITABINE IV SCH (03:00)
[2018-08-17] MEDS ORDERED: SULFAMETH-TRIMETH 80/16MG-ML 25 ML in D5W 5% 500 ML IV SCH (07:00)
== END 2018-08-16 10:49 | disposition expired | DRG 720 ==
LOC: ER 11:21 → TELE 14:39 → ICU CENTRL 15:45 → DOU IN ICU 16:18 → ICU WEST 07-30 13:30
PROVIDERS: ADMIT Internal Medicine; ATTEND Internal Medicine
PROC: 07DR3ZX Extraction of Iliac Bone Marrow, Percutaneous Approach, Diagnostic (ICD-10-PCS; principal; 2018-07-29)
PROC: 5A1935Z Respiratory Ventilation, Less than 24 Consecutive Hours (ICD-10-PCS; 2018-08-07)
PROC: 30233N1 Transfusion of Nonautologous Red Blood Cells into Peripheral Vein, Percutaneous Approach (ICD-10-PCS; 2018-08-09)
PROC: 02HV33Z Insertion of Infusion Device into Superior Vena Cava, Percutaneous Approach (ICD-10-PCS; 2018-08-09)
PROC: 5A1955Z Respiratory Ventilation, Greater than 96 Consecutive Hours (ICD-10-PCS; 2018-08-11)
PROC: 0BH17EZ Insertion of Endotracheal Airway into Trachea, Via Natural or Artificial Opening (ICD-10-PCS; 2018-08-11)
PROC: 30233R1 Transfusion of Nonautologous Platelets into Peripheral Vein, Percutaneous Approach (ICD-10-PCS; 2018-08-14)
DX: A41.9 Sepsis, unspecified organism (principal); B37.1 Pulmonary candidiasis; I21.4 Non-ST elevation (NSTEMI) myocardial infarction; E43 Unspecified severe protein-calorie malnutrition; J81.1 Chronic pulmonary edema; J15.212 Pneumonia due to Methicillin resistant Staphylococcus aureus; N17.0 Acute kidney failure with tubular necrosis; C92.40 Acute promyelocytic leukemia, not having achieved remission; J96.01 Acute respiratory failure with hypoxia; J96.02 Acute respiratory failure with hypercapnia; D61.818 Other pancytopenia; D70.9 Neutropenia, unspecified; D72.821 Monocytosis (symptomatic); E66.9 Obesity, unspecified; E87.1 Hypo-osmolality and hyponatremia; E87.6 Hypokalemia; I12.9 Hypertensive chronic kidney disease with stage 1 through stage 4 chronic kidney disease, or unspecified chronic kidney disease; N18.9 Chronic kidney disease, unspecified; R50.81 Fever presenting with conditions classified elsewhere; J80 Acute respiratory distress syndrome; E87.5 Hyperkalemia; R65.21 Severe sepsis with septic shock; Z68.38 Body mass index [BMI] 38.0-38.9, adult
CPT/HCPCS: 36415; 36569; 36600; 71045; 71046; 71250; 74176; 76700; 76775; 80048; 80053; 80061; 80202; 80307; 81001; 81206; 81207; 82040; 82306; 82390; 82550; 82570; 82607; 82728; 82746; 82784; 82805; 82962; 83010; 83520; 83540; 83550; 83605; 83615; 83735; 83880; 83970; 84100; 84155; 84156; 84165; 84300; 84436; 84443; 84478; 84484; 84550; 85007; 85014; 85018; 85025; 85027; 85060; 85379; 85610; 85652; 85730; 86038; 86141; 86160; 86256; 86431; 86703; 86704; 86706; 86708; 86803; 86850; 86880; 86900; 86901; 86920; 87040; 87070; 87077; 87081; 87086; 87186; 87205; 87278; 87340; 88189; 93005; 93306; 93970; 94002; 94003; 94640; 94660; 94668; 96361; 96365; 96367; G0378; J0330; J0461; J0610; J0696; J0712; J1447; J1450; J1815; J1956; J2001; J2248; J2250; J2543; J2704; J3480; J3490; J7060; J7131; P9047